=== PATIENT | male | born 1965 | race Two or more races ===

== ENCOUNTER 2020-06-06 15:18 | Outpatient (REF) | payer OTHER, SELFPAY | END 2020-06-06 15:19 | disposition home or self-care (01) | LOC: HO.LAB 15:18 | PROVIDERS: Visit Provider Internal Medicine | DX: Z20.828 Contact with and (suspected) exposure to other viral communicable diseases (principal) | CPT/HCPCS: U0003 ==

== ENCOUNTER 2020-06-19 10:29 | Outpatient (REF) | payer OTHER, SELFPAY | END 2020-06-19 10:30 | disposition home or self-care (01) | LOC: HO.LAB 10:29 | PROVIDERS: Visit Provider Internal Medicine | DX: Z20.828 Contact with and (suspected) exposure to other viral communicable diseases (principal) | CPT/HCPCS: C9803; U0003 ==

== ENCOUNTER 2020-08-19 13:15 | Emergency (ER) | payer OTHER, SELFPAY ==
[2020-08-19 13:22] VITALS: BP 173/99; PULSE 74; RESP 16; TEMP 36.4; O2SAT 100; BMI 33.2
[2020-08-19 19:43] VITALS: BP 181/88; PULSE 55; RESP 18; O2SAT 100
== END 2020-08-19 21:03 | disposition left against medical advice (07) ==
PROVIDERS: Emergency Provider Internal Medicine
DX: R06.02 Shortness of breath (principal)
CPT/HCPCS: 99281; 99283

== ENCOUNTER 2021-12-22 15:58 | Inpatient (IN) | payer OTHER, SELFPAY ==
--- NOTE | ~2021-12-22 | CT_ITS ---
EXAMINATION: CT ABDOMEN AND PELVIS WITHOUT CONTRAST CLINICAL INFORMATION: Abdominal pain COMPARISON: None TECHNIQUE: Multidetector volumetric imaging was performed from the superior aspect of the liver through the pubic symphysis. Sagittal and coronal reformatted images were obtained on the technologist's workstation. This CT examination was performed using dose optimization techniques as appropriate, variously including the following: *Automated exposure control *Adjustment of mA and/or kV according to patient size (this includes techniques or standardized protocols for targeted exams where dose is matched to indication/reason for exam; i.e. extremities or head) *Use of iterative reconstruction technique DLP: 745 mGy-cm FINDINGS: LUNG BASES: The visualized lung bases are unremarkable. LIVER, GALLBLADDER, AND BILIARY TREE: The liver is low in attenuation suggestive of fatty infiltration. The liver is otherwise normal. Present. The gallbladder is unremarkable with no evidence of radiopaque gallstones, gallbladder wall thickening, or obvious pericholecystic inflammatory changes. PANCREAS: Unremarkable. SPLEEN: Unremarkable. ADRENAL GLANDS: Unremarkable. KIDNEYS AND URETERS: The kidneys are normal in size, shape, and attenuation. No hydronephrosis, hydroureter, or calculi seen. No perinephric stranding. BLADDER: Unremarkable. GASTROINTESTINAL TRACT: There is diverticulosis of the colon. No evidence of diverticulitis is seen. The small and large bowel is otherwise unremarkable. The appendix is unremarkable. ABDOMINAL WALL: No significant hernia is appreciated. LYMPH NODES: There are small, small bowel mesentery lymph nodes. There is stranding of the fat in the small bowel mesentery. VASCULAR: Unremarkable. PELVIC VISCERA: Unremarkable. OSSEOUS STRUCTURES: Unremarkable. CT/CT abdomen pelvis wo con IMPRESSION: Fatty liver. Diverticulosis. No evidence of diverticulitis. Mild nonspecific stranding of the small bowel mesentery. Fleischner guidelines were followed.
--- NOTE | ~2021-12-22 | CT_ITS ---
EXAMINATION: CT CHEST WITHOUT CONTRAST CLINICAL INFORMATION: Elevated white blood cell count. Right upper lobe mass COMPARISON: Previous chest x-ray from earlier the same day TECHNIQUE: Multidetector volumetric CT imaging of the chest was done. Axial MIP volume rendering provided. Sagittal and coronal reformatted images were obtained. This CT examination was performed using dose optimization techniques as appropriate, variously including the following: *Automated exposure control *Adjustment of mA and/or kV according to patient size (this includes techniques or standardized protocols for targeted exams where dose is matched to indication/reason for exam; i.e. extremities or head) *Use of iterative reconstruction technique DLP: 745 mGy-cm FINDINGS: LUNGS: There is new dense consolidation in the apical and posterior right upper lobe with air bronchograms. Given elevated white blood cell count this probably represents a pneumonia. There is a 3 mm peripheral or subpleural right lower lobe nodule adjacent to the major fissure axial image 325 series 8. This probably represents a subpleural lymph node. There is a 4 mm left lower lobe nodule axial image 384 series 8. The lungs are otherwise clear. MEDIASTINUM: There are small mediastinal lymph nodes. No enlarged lymph nodes are seen. The heart size is normal. No pericardial effusion. Normal caliber thoracic aorta. PLEURA: There is no pleural effusion. No pleural mass or thickening. AXILLA: No lymphadenopathy. UPPER ABDOMEN: The liver is low in attenuation suggestive of fatty infiltration.. OSSEOUS STRUCTURES: There are degenerative changes of the spine. CT/CT chest wo con IMPRESSION: Dense consolidation in the right upper lobe with air bronchograms. Given elevated white blood cell count this probably represents pneumonia. Mass cannot be excluded and chest x-ray follow-up following treatment is recommended. Fleischner guidelines were followed.
--- NOTE | ~2021-12-22 | XR_ITS ---
EXAMINATION: XR CHEST CLINICAL INFORMATION: Cough COMPARISON: 03/31/2020 TECHNIQUE: 2 views of the chest were obtained. FINDINGS: Compared to the prior study, there is a new right apical density/lung mass present measuring 6.1 x 6.5 cm. Heart size normal. The remainder of the lungs are clear. No pleural effusions. Degenerative changes are seen. XR/XR chest 2V IMPRESSION: New right apical lung mass with increased density seen in the superior right mediastinum. Malignancy must be excluded. Recommend contrast-enhanced chest CT
[2021-12-22 17:44] VITALS: BP 137/67; PULSE 95; RESP 18; TEMP 37.2; O2SAT 98; BMI 35.2
[2021-12-22 18:15] LABS: COVID-19 Test Negative (Negative); IDNOW Serial# 55D5AD1C; Influenza A Negative (Negative); Influenza B2 Negative (Negative)
--- NOTE | 2021-12-22 20:29 | ED.GENADULT ---
HPI - General Adult General Chief complaint: General Medical Stated complaint: flu like Time Seen by Provider: 12/22/21 16:08 Source: patient Mode of arrival: ambulatory Limitations: no limitations History of Present Illness HPI narrative: Patient is a 56 year old male presenting to the emergency department today with fever, cough, diarrhea, and pain with deep breaths. Patient states that for the last few days, he has been having fevers, coughing, diarrhea, and pain of his torso when he takes a deep breath. Patient denies any dizziness, lightheadedness, abdominal pain, nausea, vomiting, chills, blurry vision, double vision, loss of vision, chest pain, difficulty breathing, shortness of breath, back pain, night sweats, pain with urination, increased urinary frequency, increased urinary urgency, blood in his urine or stool, syncope or a near syncopal episode, recent trauma or falls, bowel incontinence, bladder incontinence, bowel retention, bladder retention, or any other complaints at this time. Onset (ago): day(s) Relieving factors: none Exacerbating factors: none Associated symptoms: cough and fever/chills Treatments prior to arrival: none Related Data Allergies Allergy/AdvReac Type Severity Reaction Status Date / Time No Known Allergies Allergy Verified 12/22/21 17:44 Review of Systems Constitutional: Constitutional: Reports no additional constitutional complaints, Denies chills, Reports fever(s) and Denies night sweats Eyes: Eyes: Reports no additional eye complaints, Denies blurry vision, Denies change in vision, Denies diplopia, Denies eye discharge, Denies loss of vision and Denies eye pain ENT: Denies dizziness Cardiovascular: Cardiovascular: Reports no additional cardiovascular complaints, Denies chest pain, Denies lightheadedness, Denies Loss of Consciousness and Denies dyspnea Respiratory: Respiratory: Reports no additional respiratory complaints, Reports cough and Denies dyspnea Gastrointestinal: Gastrointestinal: Reports no additional gastrointestinal complaints, Denies abdominal pain, Denies melena, Denies hematochezia, Denies change in bowel habits, Denies change in stool character and Reports diarrhea Genitourinary: Genitourinary: Reports no additional male genitourinary complaints, Denies hematuria, Denies oliguria, Denies difficulty urinating, Denies dysuria, Denies urinary frequency, Denies urinary hesitancy, Denies urinary incontinence and Denies urinary urgency Musculoskeletal: Musculoskeletal: Reports no additional musculoskeletal complaints, Denies numbness and Denies tingling Neurologic: Denies dizziness, Denies loss of vision, Denies numbness and Denies tingling Psychiatric: Psychiatric: Reports no additional psychiatric complaints Endocrine: Endocrine: Reports no additional endocrine complaints Hematologic/Lymphatic: Hematologic/Lymphatic: Reports no additional hematologic/lymphatic complaints Allergic/Immunologic: Allergic/Immunologic: Reports no additional allergic/immunologic complaints [facility] Past Medical History Attestation statement: The following information was validated with the patient. Source: old records reviewed Medical History Hypertension Social History Social History Advance Directives: No Advance Directives Information Provided: No Physical Exam ED Vital Signs: Vital Signs - 24 hr 12/22/21 17:44 12/22/21 22:29 Temperature 98.9 F Pulse Rate 95 55 Respiratory Rate 18 17 Blood Pressure 137/67 137/74 Pulse Oximetry 98 97 BMI result Body Mass Index 35.2 Const General: cooperative, no acute distress, alert and awake Nutritional Appearance: well nourished Orientation/consciousness: patient oriented x3 Limitations: no limitations HENMT Head: Yes normal to inspection and Yes atraumatic Ears: hearing grossly normal bilaterally and external ears normal General nose exam: Normal external nose present, no nasal discharge noted and no epistaxis Face and sinus: Yes normal facial exam, No abrasion and No laceration Mouth: Normal oral and palatal mucosa present, no drooling and no muffled voice Eyes General: appearance normal, both eyes and all related structures Periorbital: periorbital findings normal Eyelids: Yes eyelids normal Conjunctivae: conjunctivae normal Pupils: Equal, round and reactive pupils present EOM: EOMs intact bilaterally Neck Neck: Yes normal visual inspection, Yes full ROM and Yes no lymphadenopathy Chest Chest palpation & inspection: normal inspection of the chest Resp Effort & Inspection: normal respiratory effort and able to speak in complete sentences Auscultation: diminished lung sounds on the right in the upper lung mcrae Cardio Rate: regular rate Rhythm: regular rhythm GI Inspection: Yes normal to inspection Palpation (GI): Soft to palpation, not firm, nontender and no guarding Neuro General: patient oriented x3 and moves all extremities Cranial nerves: Yes Equal, round and reactive pupils present Cognition (Neuro): normal cognition Motor exam (neuro): 5/5 motor strength present throughout Sensory Exam: Normal double simultaneous stimulation for sensation Coordination: [id number] test normal Extrem General: Yes normal to inspection, Yes full ROM and Yes capillary refill normal Psych Appearance: grossly normal Mental Status: mental status grossly normal Affect: normal affect Attitude: cooperative Thought process: Normal thought process present Thought content: Normal thought content present Insight: Good insight present (Psych) Medical Decision Making MDM Narrative Medical decision making narrative: Patient is a 56 year old male presenting to the emergency department today with a cough, fever, diarrhea, and torso pain when inhaling deeply. Patient's physical exam was unremarkable. Patient's blood work showed a markedly elevated white blood cell count of 31.5. Due to high the WBC count was, I had it repeated and it resulted again at 29.7. Patient had an elevated ESR at 36 and elevated CRP at 30.94. Patient's creatinine was minimally elevated at 1.59. Patient was negative for COVID-19 and influenza. Patient's chest x-ray showed a new right apical lung mass with increased density seen in the superior right mediastinum. Patient's chest CT showed a dense consolidation in the right upper lobe with air bronchograms that likely signifies pneumonis but malignancy cannot be excluded. Patient's CT abdoment pelvis was unremarkable. I explained my physical exam findings as well as all test results to the patient. I answered all questions asked by the patient. Patient received IV Zosyn. I did not suspect sepsis in this patient given his clinical condition during my treatment. I spoke to Dr. Parker, the hospitalist production staff worker, who agreed to admission. The patient verbalized agreement and understanding with this treatment plan and admission. Differential Diagnosis Differential Diagnosis: pneumonia, lung mass Medical Records Medical records reviewed: Yes I reviewed the patient's medical records. Lab Data Lab results reviewed: Yes I reviewed the patient's lab results. Result diagrams: 12/22/21 21:20 12/22/21 20:39 Labs: Lab Results 12/22/21 12/22/21 12/22/21 Range/Units 17:50 17:50 20:39 WBC 31.5 H* (4.8-10.8) X10*3/uL RBC 5.63 (4.60-5.80) X10*6/uL Hgb 15.4 (14.0-18.0) g/dl Hct 46.1 (42.0-52.0) % MCV 81.9 (80.0-98.0) fL MCH 27.4 (27.0-33.0) pg MCHC 33.4 (31.0-36.0) g/dl RDW 13.7 (11.0-16.0) % Plt Count 221 (160-400) X10*3/uL MPV 10.2 (9.4-12.4) fL Immature Gran % (Auto) 0.7 H (0.0-0.4) % Neut % (Auto) 82.3 H (45-73) % Lymph % (Auto) 8.3 L (20-40) % [place] % (Auto) 8.5 (2-11) % Eos % (Auto) 0.0 (0-4) % Baso % (Auto) 0.2 (0-2) % Lymph # (Auto) 2.6 (1.2-4.9) X10*3/uL [place] # (Auto) 2.7 H (0.1-1.2) X10*3/uL Eos # (Auto) 0.0 (0.0-0.4) X10*3/uL Baso # (Auto) 0.1 (0.0-0.2) X10*3/uL Abs Immat Gran (auto) 0.22 H (0.00-0.03) X10*3/uL Absolute Neuts (auto) 25.9 H (2.0-8.3) x10*3/uL Absolute Nucleated RBC 0.000 (0.0-0.012) X10*3/uL Nucleated RBC % (auto) 0.0 (0.0-0.2) /100WBC Smear Tech's Comments VERIFIED ESR (0-15) MM/HR Sodium (135-145) mmol/L Potassium (3.3-5.1) mmol/L Chloride (96-108) mmol/L Carbon Dioxide (22-29) mmol/L Anion Gap (12-20) BUN (9-16) mg/dL Creatinine (0.5-1.4) mg/dL Estim Creat Clear Calc Estimated GFR Random Glucose (60-115) mg/dL Lactic Acid (0.5-2.0) mmol/L Calcium (8.4-10.2) mg/dL Total Bilirubin (0.0-1.0) mg/dL AST (5-37) U/L ALT (0-40) U/L Alkaline Phosphatase (39-117) U/L C-Reactive Protein (< or = 0.50) mg/dL Total Protein (6.5-8.0) g/dL Albumin (3.5-5.0) g/dL COVID-19 (BIRGIT) Negative (Negative) COVID-19 Clin Com See Note Influenza Type A (JULIA) Negative (Negative) Influenza Type B (JULIA) Negative (Negative) Influenza A & B Note See Note 12/22/21 12/22/21 12/22/21 Range/Units 20:39 21:20 21:20 WBC 29.7 H (4.8-10.8) X10*3/uL RBC 5.42 (4.60-5.80) X10*6/uL Hgb 14.7 (14.0-18.0) g/dl Hct 44.1 (42.0-52.0) % MCV 81.4 (80.0-98.0) fL MCH 27.1 (27.0-33.0) pg MCHC 33.3 (31.0-36.0) g/dl RDW 13.7 (11.0-16.0) % Plt Count 217 (160-400) X10*3/uL MPV 10.2 (9.4-12.4) fL Immature Gran % (Auto) 0.9 H (0.0-0.4) % Neut % (Auto) 83.5 H (45-73) % Lymph % (Auto) 7.0 L (20-40) % [place] % (Auto) 8.4 (2-11) % Eos % (Auto) 0.0 (0-4) % Baso % (Auto) 0.2 (0-2) % Lymph # (Auto) 2.1 (1.2-4.9) X10*3/uL [place] # (Auto) 2.5 H (0.1-1.2) X10*3/uL Eos # (Auto) 0.0 (0.0-0.4) X10*3/uL Baso # (Auto) 0.1 (0.0-0.2) X10*3/uL Abs Immat Gran (auto) 0.26 H (0.00-0.03) X10*3/uL Absolute Neuts (auto) 24.8 H (2.0-8.3) x10*3/uL Absolute Nucleated RBC 0.000 (0.0-0.012) X10*3/uL Nucleated RBC % (auto) 0.0 (0.0-0.2) /100WBC Smear Tech's Comments ESR 36 H (0-15) MM/HR Sodium 140 (135-145) mmol/L Potassium 3.5 (3.3-5.1) mmol/L Chloride 101 (96-108) mmol/L Carbon Dioxide 27 (22-29) mmol/L Anion Gap 16 (12-20) BUN 15 (9-16) mg/dL Creatinine 1.59 H (0.5-1.4) mg/dL Estim Creat Clear Calc 68.4 Estimated GFR 46 Random Glucose 131 H (60-115) mg/dL Lactic Acid (0.5-2.0) mmol/L Calcium 9.0 (8.4-10.2) mg/dL Total Bilirubin 1.5 H (0.0-1.0) mg/dL AST 22 (5-37) U/L ALT 35 (0-40) U/L Alkaline Phosphatase 110 (39-117) U/L C-Reactive Protein 30.94 H (< or = 0.50) mg/dL Total Protein 8.0 (6.5-8.0) g/dL Albumin 4.1 (3.5-5.0) g/dL COVID-19 (BIRGIT) (Negative) COVID-19 Clin Com Influenza Type A (JULIA) (Negative) Influenza Type B (JULIA) (Negative) Influenza A & B Note 12/22/21 Range/Units 21:21 WBC (4.8-10.8) X10*3/uL RBC (4.60-5.80) X10*6/uL Hgb (14.0-18.0) g/dl Hct (42.0-52.0) % MCV (80.0-98.0) fL MCH (27.0-33.0) pg MCHC (31.0-36.0) g/dl RDW (11.0-16.0) % Plt Count (160-400) X10*3/uL MPV (9.4-12.4) fL Immature Gran % (Auto) (0.0-0.4) % Neut % (Auto) (45-73) % Lymph % (Auto) (20-40) % [place] % (Auto) (2-11) % Eos % (Auto) (0-4) % Baso % (Auto) (0-2) % Lymph # (Auto) (1.2-4.9) X10*3/uL [place] # (Auto) (0.1-1.2) X10*3/uL Eos # (Auto) (0.0-0.4) X10*3/uL Baso # (Auto) (0.0-0.2) X10*3/uL Abs Immat Gran (auto) (0.00-0.03) X10*3/uL Absolute Neuts (auto) (2.0-8.3) x10*3/uL Absolute Nucleated RBC (0.0-0.012) X10*3/uL Nucleated RBC % (auto) (0.0-0.2) /100WBC Smear Tech's Comments ESR (0-15) MM/HR Sodium (135-145) mmol/L Potassium (3.3-5.1) mmol/L Chloride (96-108) mmol/L Carbon Dioxide (22-29) mmol/L Anion Gap (12-20) BUN (9-16) mg/dL Creatinine (0.5-1.4) mg/dL Estim Creat Clear Calc Estimated GFR Random Glucose (60-115) mg/dL Lactic Acid 1.6 (0.5-2.0) mmol/L Calcium (8.4-10.2) mg/dL Total Bilirubin (0.0-1.0) mg/dL AST (5-37) U/L ALT (0-40) U/L Alkaline Phosphatase (39-117) U/L C-Reactive Protein (< or = 0.50) mg/dL Total Protein (6.5-8.0) g/dL Albumin (3.5-5.0) g/dL COVID-19 (BIRGIT) (Negative) COVID-19 Clin Com Influenza Type A (JULIA) (Negative) Influenza Type B (JULIA) (Negative) Influenza A & B Note Imaging Data Chest x-ray: Attestation: I personally reviewed and interpreted this imaging study as follows: My impression: Large mass in the right apical area Radiologist's impression: EXAMINATION: XR CHEST CLINICAL INFORMATION: Cough COMPARISON: 03/31/2020 TECHNIQUE: 2 views of the chest were obtained. FINDINGS: Compared to the prior study, there is a new right apical density/lung mass present measuring 6.1 x 6.5 cm. Heart size normal. The remainder of the lungs are clear. No pleural effusions. Degenerative changes are seen. XR/XR chest 2V IMPRESSION: New right apical lung mass with increased density seen in the superior right mediastinum. Malignancy must be excluded. Recommend contrast-enhanced chest CT Dictated By: Phuc Graves MD Signed By: Electronically signed by Phuc Graves MD 12/22/212120 CT scan - abdomen: Attestation: I personally reviewed and interpreted this imaging study as follows: Radiologist's impression: EXAMINATION: CT ABDOMEN AND PELVIS WITHOUT CONTRAST? CLINICAL INFORMATION: Abdominal pain? COMPARISON: None? TECHNIQUE: Multidetector volumetric imaging was performed from the superior aspect of the liver through the pubic symphysis. Sagittal and coronal reformatted images were obtained on the technologist's workstation.? This CT examination was performed using dose optimization techniques as appropriate, variously including the following: *Automated exposure control *Adjustment of mA and/or kV according to patient size (this includes techniques or standardized protocols for targeted exams where dose is matched to indication/reason for exam; i.e. extremities or head) *Use of iterative reconstruction technique DLP: 745 mGy-cm FINDINGS: LUNG BASES: The visualized lung bases are unremarkable.? LIVER, GALLBLADDER, AND BILIARY TREE: The liver is low in attenuation suggestive of fatty infiltration. The liver is otherwise normal. Present. The gallbladder is unremarkable with no evidence of radiopaque gallstones, gallbladder wall thickening, or obvious pericholecystic inflammatory changes.? PANCREAS: Unremarkable.? SPLEEN: Unremarkable.? ADRENAL GLANDS: Unremarkable.? KIDNEYS AND URETERS: The kidneys are normal in size, shape, and attenuation. No hydronephrosis, hydroureter, or calculi seen. No perinephric stranding. ? BLADDER: Unremarkable.? GASTROINTESTINAL TRACT: There is diverticulosis of the colon. No evidence of diverticulitis is seen. The small and large bowel is otherwise unremarkable. The appendix is unremarkable.? ABDOMINAL WALL: No significant hernia is appreciated.? LYMPH NODES: There are small, small bowel mesentery lymph nodes. There is stranding of the fat in the small bowel mesentery. VASCULAR: Unremarkable. PELVIC VISCERA: Unremarkable.? OSSEOUS STRUCTURES: Unremarkable.? CT/CT abdomen pelvis wo con IMPRESSION: Fatty liver. Diverticulosis. No evidence of diverticulitis. Mild nonspecific stranding of the small bowel mesentery. ? Fleischner guidelines were followed. Dictated By: Beatriz Samaniego MD Signed By: Electronically signed by Beatriz Samaniego MD 12/22/[address] scan - chest: Attestation: I personally reviewed and interpreted this imaging study as follows: My impression: Large mass in the upper right lung Radiologist's impression: EXAMINATION: CT CHEST WITHOUT CONTRAST CLINICAL INFORMATION: Elevated white blood cell count. Right upper lobe mass? COMPARISON: Previous chest x-ray from earlier the same day TECHNIQUE: Multidetector volumetric CT imaging of the chest was done. Axial MIP volume rendering provided. Sagittal and coronal reformatted images were obtained.? This CT examination was performed using dose optimization techniques as appropriate, variously including the following: *Automated exposure control *Adjustment of mA and/or kV according to patient size (this includes techniques or standardized protocols for targeted exams where dose is matched to indication/reason for exam; i.e. extremities or head) *Use of iterative reconstruction technique DLP: 745 mGy-cm FINDINGS: LUNGS: There is new dense consolidation in the apical and posterior right upper lobe with air bronchograms. Given elevated white blood cell count this probably represents a pneumonia. There is a 3 mm peripheral or subpleural right lower lobe nodule adjacent to the major fissure axial image 325 series 8. This probably represents a subpleural lymph node. There is a 4 mm left lower lobe nodule axial image 384 series 8. The lungs are otherwise clear. MEDIASTINUM: There are small mediastinal lymph nodes. No enlarged lymph nodes are seen. The heart size is normal. No pericardial effusion. Normal caliber thoracic aorta. PLEURA: There is no pleural effusion. No pleural mass or thickening.? AXILLA: No lymphadenopathy.? UPPER ABDOMEN: The liver is low in attenuation suggestive of fatty infiltration..? OSSEOUS STRUCTURES: There are degenerative changes of the spine.? CT/CT chest wo con IMPRESSION: Dense consolidation in the right upper lobe with air bronchograms. Given elevated white blood cell count this probably represents pneumonia. Mass cannot be excluded and chest x-ray follow-up following treatment is recommended.? ? Fleischner guidelines were followed. Dictated By: Beatriz Samaniego MD Signed By: Electronically signed by Beatriz Samaniego MD 12/22/21 3661 Critical Care Time Critical Care Time Critical Care Time: Yes Total Critical Care Time: 30 Attestation: I spent 30 minutes of Critical Care Time with this patient. This does not include time spent on separately reported billable procedures. Discharge Plan Discharge Clinical Impression: PNA (pneumonia) Patient Disposition: Admitted As Inpatient
[2021-12-22 20:44] LABS: Basophils Absolute Auto 0.1 X10*3/uL (0.0-0.2); Basophils Percent Auto 0.2 % (0-2); Hematocrit 46.1 % (42.0-52.0); Hemoglobin 15.4 g/dl (14.0-18.0); Imm Gran Abs Auto 0.22 X10*3/uL (0.00-0.03); Imm Gran Pct Auto 0.7 % (0.0-0.4); Lymphocytes Absolute Auto 2.6 X10*3/uL (1.2-4.9); Lymphocytes Percent Auto 8.3 % (20-40); MANUAL DIFF FLAG SCAN; Mean Corpuscular HGB Conc 33.4 g/dl (31.0-36.0); Mean Corpuscular Hemoglobin 27.4 pg (27.0-33.0); Mean Corpuscular Volume 81.9 fL (80.0-98.0); Mean Platelet Volume 10.2 fL (9.4-12.4); Monocytes Absolute Auto 2.7 X10*3/uL (0.1-1.2); Monocytes Percent Auto 8.5 % (2-11); Neutrophils Absolute Auto 25.9 x10*3/uL (2.0-8.3); Neutrophils Percent Auto 82.3 % (45-73); Platelet Count 221 X10*3/uL (160-400); Red Blood Count 5.63 X10*6/uL (4.60-5.80); Red Cell Distribution Width 13.7 % (11.0-16.0); SCAN SMEAR FLAG 1
[2021-12-22 20:55] LABS: White Blood Count 31.5 X10*3/uL (4.8-10.8)
[2021-12-22 21:06] LABS: SLIDE REVIEW VERIFIED
[2021-12-22 21:08] LABS: Alanine Aminotransferase 35 U/L (0-40); Albumin Level 4.1 g/dL (3.5-5.0); Alkaline Phosphatase 110 U/L (39-117); Anion Gap 16 (12-20); Aspartate Amino Transferase 22 U/L (5-37); Bilirubin Total 1.5 mg/dL (0.0-1.0); Blood Urea Nitrogen 15 mg/dL (9-16); Carbon Dioxide 27 mmol/L (22-29); Chloride 101 mmol/L (96-108); Creatinine Clr Calc Pharmacy 68.4; Estimated Glomerular Filt Rate 46; Glucose Random 131 mg/dL (60-115); Potassium 3.5 mmol/L (3.3-5.1); Sodium 140 mmol/L (135-145)
[2021-12-22 21:28] LABS: Basophils Absolute Auto 0.1 X10*3/uL (0.0-0.2); Basophils Percent Auto 0.2 % (0-2); Hematocrit 44.1 % (42.0-52.0); Hemoglobin 14.7 g/dl (14.0-18.0); Imm Gran Abs Auto 0.26 X10*3/uL (0.00-0.03); Imm Gran Pct Auto 0.9 % (0.0-0.4); Lymphocytes Absolute Auto 2.1 X10*3/uL (1.2-4.9); MANUAL DIFF FLAG SCAN; Mean Corpuscular HGB Conc 33.3 g/dl (31.0-36.0); Mean Corpuscular Hemoglobin 27.1 pg (27.0-33.0); Mean Corpuscular Volume 81.4 fL (80.0-98.0); Mean Platelet Volume 10.2 fL (9.4-12.4); Monocytes Absolute Auto 2.5 X10*3/uL (0.1-1.2); Monocytes Percent Auto 8.4 % (2-11); Neutrophils Absolute Auto 24.8 x10*3/uL (2.0-8.3); Neutrophils Percent Auto 83.5 % (45-73); Platelet Count 217 X10*3/uL (160-400); Red Blood Count 5.42 X10*6/uL (4.60-5.80); Red Cell Distribution Width 13.7 % (11.0-16.0); SCAN SMEAR FLAG 1; White Blood Count 29.7 X10*3/uL (4.8-10.8)
[2021-12-22 21:40] LABS: Lactic Acid 1.6 mmol/L (0.5-2.0)
[2021-12-22 22:29] VITALS: BP 137/74; PULSE 55; RESP 17; O2SAT 97
[2021-12-22] MEDS: 0.9 % Sodium Chloride 1,000 ML 999 ML IVCONT (22:31)
[2021-12-22] MEDS: Piperacillin Sodium/Tazobactam 4.5 GM in 0.9 % Sodium Chloride 100 ML IV (22:45)
[2021-12-22 22:52] LABS: C Reactive Protein 30.94 mg/dL (< or = 0.50)
--- NOTE | 2021-12-22 23:12 | PM.IMHP ---
History of Present Illness Date of Service: 12/22/21 Chief Complaint: Fever 56-year-old male with a past medical history of tobacco dependence, alcohol abuse; presented to the hospital today with a chief complaint of not feeling well; patient reports that for the past couple days she has been having not feeling well, having dry cough; also had shortness of breath which worsens on exertion. Mentioned that he drinks about 6 beers every day and last Tuesday he drinks beers as well as used cocaine and followed by he slept over; and from Tuesday he feeling like having fevers and not well; hence decided to come to the ER for further evaluation. Denies any weight loss or change in appetite. Denies any numbness tingling or focal weakness. Denies any nausea vomiting. Denies any urinary symptoms. Patient reports that he has intermittent headaches and also had few episodes of loose stools. [facility] Medical History (Updated 12/22/21 @ 23:13 by Shahid Parker MD) Hypertension Social History Advance Directives: No Advance Directives Information Provided: No Meds Allergies Allergy/AdvReac Type Severity Reaction Status Date / Time No Known Allergies Allergy Verified 12/22/21 17:44 Active Medications: Current Medications Acetaminophen (Acetaminophen 325 Mg Tablet) 650 mg PO Q6H PRN PRN Reason: Pain, Mild (Pain Scale 1-3) Benzonatate (Benzonatate 100 Mg Capsule) 100 mg PO TID PRN PRN Reason: Cough Enoxaparin Sodium (Enoxaparin Sodium 40 Mg/0.4 Ml Syringe) 40 mg SUBCUT Q24H SELMA Vancomycin HCl 1,000 mg/ (Sodium Chloride) 270 mls @ 270 mls/hr IV Q12H SELMA Piperacillin Sod/Tazobactam (Sod 3.375 gm/ Sodium Chloride) 50 mls @ 100 mls/hr IV Q6H SELMA Dextrose/Sodium Chloride (D5ns) 1,000 mls @ 100 mls/hr IVCONT .Q10H SELMA Melatonin (Melatonin 3 Mg Tablet) 6 mg PO BEDTIME PRN PRN Reason: Insomnia Pharmacy Consult (Consult Rx Perform Med Rec) 1 each MISCELLANE ONCE PRN PRN Reason: Consult order Pharmacy Consult (Consult Rx Vancomycin Dosing) 1 each MISCELLANE DAILY PRN PRN Reason: Consult order Senna (Sennosides 8.6 Mg Tablet) 17.2 mg PO BEDTIME PRN PRN Reason: Constipation Sodium Chloride (0.9 % Sodium Chloride Flush 3 Ml Syringe) 3 ml IVFLUSH QSHIFT SELMA Physical Exam Vital Signs and Narrative: Vital Signs: Last Vital Signs Temp 98.9 F 12/22/21 17:44 Pulse 55 12/22/21 22:29 Resp 17 12/22/21 22:29 BP 137/74 12/22/21 22:29 Pulse Ox 97 12/22/21 22:29 BMI result Body Mass Index 35.2 Gen: Appears be in no acute distress HEENT: NCAT, Moist mucosa. Pulmonary: Course in the right upper lobe; has rhonchi. CVS: Normal S1-S2 Abdomen: BS+, Soft, Nontender Extremities: Warm well perfused Neuro: Alert and awake. Results Labs CBC and Chem 7: 12/22/21 21:20 12/22/21 20:39 Labs: Laboratory Results - last 24 hr 12/22/21 12/22/21 12/22/21 17:50 17:50 20:39 MCV 81.9 MCH 27.4 MCHC 33.4 RDW 13.7 Plt Count 221 MPV 10.2 Immature Gran % (Auto) 0.7 H Neut % (Auto) 82.3 H Lymph % (Auto) 8.3 L [place] % (Auto) 8.5 Eos % (Auto) 0.0 Baso % (Auto) 0.2 Lymph # (Auto) 2.6 [place] # (Auto) 2.7 H Eos # (Auto) 0.0 Baso # (Auto) 0.1 Abs Immat Gran (auto) 0.22 H Absolute Neuts (auto) 25.9 H Absolute Nucleated RBC 0.000 Nucleated RBC % (auto) 0.0 Smear Tech's Comments VERIFIED Anion Gap Estim Creat Clear Calc Estimated GFR Random Glucose Lactic Acid Calcium Total Bilirubin AST ALT Alkaline Phosphatase C-Reactive Protein Total Protein Albumin COVID-19 (BIRGIT) Negative COVID-19 Clin Com See Note Influenza Type A (JULIA) Negative Influenza Type B (JULIA) Negative Influenza A & B Note See Note 12/22/21 12/22/21 12/22/21 20:39 21:20 21:21 MCV 81.4 MCH 27.1 MCHC 33.3 RDW 13.7 Plt Count 217 MPV 10.2 Immature Gran % (Auto) 0.9 H Neut % (Auto) 83.5 H Lymph % (Auto) 7.0 L [place] % (Auto) 8.4 Eos % (Auto) 0.0 Baso % (Auto) 0.2 Lymph # (Auto) 2.1 [place] # (Auto) 2.5 H Eos # (Auto) 0.0 Baso # (Auto) 0.1 Abs Immat Gran (auto) 0.26 H Absolute Neuts (auto) 24.8 H Absolute Nucleated RBC 0.000 Nucleated RBC % (auto) 0.0 Smear Tech's Comments Anion Gap 16 Estim Creat Clear Calc 68.4 Estimated GFR 46 Random Glucose 131 H Lactic Acid 1.6 Calcium 9.0 Total Bilirubin 1.5 H AST 22 ALT 35 Alkaline Phosphatase 110 C-Reactive Protein 30.94 H Total Protein 8.0 Albumin 4.1 COVID-19 (BIRGIT) COVID-19 Clin Com Influenza Type A (JULIA) Influenza Type B (JULIA) Influenza A & B Note Imaging Radiologist's Impressions: Impressions Chest X-Ray 12/22/21 20:32 IMPRESSION: New right apical lung mass with increased density seen in the superior right mediastinum. Malignancy must be excluded. Recommend contrast-enhanced chest CT Abdomen/Pelvis CT 12/22/21 21:54 IMPRESSION: Fatty liver. Diverticulosis. No evidence of diverticulitis. Mild nonspecific stranding of the small bowel mesentery. Fleischner guidelines were followed. Chest CT 12/22/21 21:54 IMPRESSION: Dense consolidation in the right upper lobe with air bronchograms. Given elevated white blood cell count this probably represents pneumonia. Mass cannot be excluded and chest x-ray follow-up following treatment is recommended. Fleischner guidelines were followed. Assessment and Plan (1) PNA (pneumonia): Status: Acute Plan 56-year-old male with a past medical history of tobacco dependence, alcohol abuse; presented to the hospital today with a chief complaint of not feeling well/subjective fever/shortness of breath. Noted to have pneumonia. Admitted for further management. Pneumonia: Concern for aspiration Will give the patient on IV vancomycin and Zosyn. CT chest also mentioned mass cannot be entirely excluded. Will consult pulmonology for further recommendations [email or web address] [email or web address]. Cough suppressants Patient has severe leukocytosis-will consult ID for further recommendations. ? leukemoid reaction REED: Likely prerenal. Gentle IV fluids. Alcohol abuse: Will monitor on CIWA protocol. DVT prophylaxis: Lovenox Code status: Full code Quality Stroke Does the patient have a stroke diagnosis?: No VTE Prior VTE?: No VTE Risk Level:: Medical - moderate - high VTE Device Contraindication: Treatment Not Indicated VTE Drug Contraindication: N/A - Med Ordered
[2021-12-22 23:27] LABS: Erythrocyte Sedimentation Rate 36 MM/HR (0-15)
[2021-12-23] VITALS (9 sets, daily range): BP systolic 100–140; BP diastolic 57–84; PULSE 68–87; RESP 18–25; TEMP 36.3–37.6; O2SAT 95–98
[2021-12-23 01:32] LABS: Appearance Urine CLEAR; Color Urine YELLOW; Glucose Urine UA NEG (NEG); Leukocyte Esterase Urine NEG (NEG); Nitrite Urine NEG (NEG); Specific Gravity - Urine <= 1.005 (1.005-1.025); UACC Culture Trigger NO; Urine Blood 1+ (NEG); Urine Ketones NEG (NEG); Urine Protein TRACE MG/DL (NEG-TRACE)
[2021-12-23 01:47] LABS: Squamous Epithelial Cell Urine 1+ /LPF; WBC Urine 0-2 /HPF (0-4)
[2021-12-23] MEDS: Dextrose 5 % and 0.9 % NaCl 1,000 ML 100 ML IVCONT ×2 (01:54→09:57)
--- NOTE | 2021-12-23 02:30 | PC.NURSE ---
pharmacy contacted regarding vancomycin order, order confirmed, medicated per provider order. D5NS running @ 100ml/hr/.
[2021-12-23] MEDS: Acetaminophen 325 MG TABLET 650 MG PO (02:35)
--- NOTE | 2021-12-23 02:36 | PC.NURSE ---
pt c/o 5 headache, medicated w PRN tylenol.
[2021-12-23 04:44] LABS: Basophils Absolute Auto 0.1 X10*3/uL (0.0-0.2); Basophils Percent Auto 0.3 % (0-2); Eosinophils Percent Auto 0.1 % (0-4); Hematocrit 39.7 % (42.0-52.0); Hemoglobin 13.3 g/dl (14.0-18.0); Imm Gran Abs Auto 0.14 X10*3/uL (0.00-0.03); Imm Gran Pct Auto 0.6 % (0.0-0.4); Lymphocytes Absolute Auto 2.6 X10*3/uL (1.2-4.9); Lymphocytes Percent Auto 10.7 % (20-40); MANUAL DIFF FLAG SCAN; Mean Corpuscular HGB Conc 33.5 g/dl (31.0-36.0); Mean Corpuscular Hemoglobin 27.6 pg (27.0-33.0); Mean Corpuscular Volume 82.4 fL (80.0-98.0); Mean Platelet Volume 10.4 fL (9.4-12.4); Monocytes Percent Auto 8.2 % (2-11); Neutrophils Absolute Auto 19.4 x10*3/uL (2.0-8.3); Neutrophils Percent Auto 80.1 % (45-73); Platelet Count 191 X10*3/uL (160-400); Red Blood Count 4.82 X10*6/uL (4.60-5.80); Red Cell Distribution Width 13.5 % (11.0-16.0); SCAN SMEAR FLAG 1; White Blood Count 24.3 X10*3/uL (4.8-10.8)
[2021-12-23] MEDS: Piperacillin Sodium/Tazobactam 3.375 GM in 0.9 % Sodium Chloride 50 ML IV ×4 (04:48→21:50)
[2021-12-23 05:12] LABS: Anion Gap 10 (12-20); Blood Urea Nitrogen 12 mg/dL (9-16); Calcium 8.2 mg/dL (8.4-10.2); Carbon Dioxide 28 mmol/L (22-29); Chloride 103 mmol/L (96-108); Creatinine Clr Calc Pharmacy 97.1; Estimated Glomerular Filt Rate > 60; Glucose Random 108 mg/dL (60-115); Potassium 3.2 mmol/L (3.3-5.1); Sodium 138 mmol/L (135-145)
--- NOTE | 2021-12-23 08:05 | PHA.MEDREC ---
Pharmacy Consult ? Medication Reconciliation Pharmacy has completed the medication reconciliation. Patient report no medication at home. Hayley Roth, AshleighD
--- NOTE | 2021-12-23 09:33 | HO.PM.IMPN ---
Subjective Subjective Date of Service: 12/23/21 Interval History: pneumonia ,reed Review of Systems Patient says that shortness of breath is somewhat better than yesterday, has cough, Denies any chest pain No fever or chills Physical Exam Vital Signs: Vital Signs: Last Vital Signs Temp 97.3 F 12/23/21 04:00 Pulse 68 12/23/21 07:31 Resp 19 12/23/21 07:31 BP 111/63 12/23/21 07:31 Pulse Ox 95 12/23/21 07:31 BMI result Body Mass Index 35.2 Appearance: Alert.? Oriented X3.? not in distress.? cvs: rrr, [id number] , no murmur res: air entry diminshed at bases ,few rhonchii abd: no rebound or guarding ,nt, bs present. ext pulses present , no cyanosis . neuro: axo3 , nonfocal. Objective Data Active Medications Acetaminophen (Acetaminophen 325 Mg Tablet) 650 mg PO Q6H PRN PRN Reason: Pain, Mild (Pain Scale 1-3) Last Admin: 12/23/21 02:35 Dose: 650 mg Documented by: LINDSEY Benzonatate (Benzonatate 100 Mg Capsule) 100 mg PO TID PRN PRN Reason: Cough Enoxaparin Sodium (Enoxaparin Sodium 40 Mg/0.4 Ml Syringe) 40 mg SUBCUT Q24H SELMA Vancomycin HCl 1,000 mg/ (Sodium Chloride) 270 mls @ 270 mls/hr IV Q12H SELMA Piperacillin Sod/Tazobactam (Sod 3.375 gm/ Sodium Chloride) 50 mls @ 100 mls/hr IV Q6H [facility] Last Infusion: 12/23/21 05:19 Dose: 100 mls/hr Documented by: JOSLYN-CANF Dextrose/Sodium Chloride (D5ns) 1,000 mls @ 100 mls/hr IVCONT .Q10H [facility] Last Admin: 12/23/21 01:54 Dose: 100 mls/hr Documented by: LINDSEY Melatonin (Melatonin 3 Mg Tablet) 6 mg PO BEDTIME PRN PRN Reason: Insomnia Pharmacy Consult (Consult Rx Perform Med Rec) 1 each MISCELLANE ONCE PRN PRN Reason: Consult order Pharmacy Consult (Consult Rx Vancomycin Dosing) 1 each MISCELLANE DAILY PRN PRN Reason: Consult order Senna (Sennosides 8.6 Mg Tablet) 17.2 mg PO BEDTIME PRN PRN Reason: Constipation Sodium Chloride (0.9 % Sodium Chloride Flush 3 Ml Syringe) 3 ml IVFLUSH QSHIFT [facility] Last Admin: 12/23/21 01:32 Dose: Not Given Documented by: LINDSEY Non-Admin Reason: IV Running Labs CBC & Chem 7: 12/23/21 04:27 12/23/21 04:27 Labs: Laboratory Results - last 24 hr 12/22/21 12/22/21 12/22/21 17:50 17:50 20:39 MCV 81.9 MCH 27.4 MCHC 33.4 RDW 13.7 Plt Count 221 MPV 10.2 Immature Gran % (Auto) 0.7 H Neut % (Auto) 82.3 H Lymph % (Auto) 8.3 L [place] % (Auto) 8.5 Eos % (Auto) 0.0 Baso % (Auto) 0.2 Lymph # (Auto) 2.6 [place] # (Auto) 2.7 H Eos # (Auto) 0.0 Baso # (Auto) 0.1 Abs Immat Gran (auto) 0.22 H Absolute Neuts (auto) 25.9 H Absolute Nucleated RBC 0.000 Nucleated RBC % (auto) 0.0 Smear Tech's Comments VERIFIED ESR Anion Gap Estim Creat Clear Calc Estimated GFR Random Glucose Lactic Acid Calcium Total Bilirubin AST ALT Alkaline Phosphatase C-Reactive Protein Total Protein Albumin Urine Color Urine Appearance Urine pH Ur Specific [place] Urine Protein Urine Glucose (UA) Urine Ketones Urine Blood Urine Nitrite Ur Leukocyte Esterase Urine RBC Urine WBC Ur Squamous Epith Cells Urine Bacteria COVID-19 (BIRGIT) Negative COVID-19 Clin Com See Note Influenza Type A (JULIA) Negative Influenza Type B (JULIA) Negative Influenza A & B Note See Note 12/22/21 12/22/21 12/22/21 20:39 21:20 21:20 MCV 81.4 MCH 27.1 MCHC 33.3 RDW 13.7 Plt Count 217 MPV 10.2 Immature Gran % (Auto) 0.9 H Neut % (Auto) 83.5 H Lymph % (Auto) 7.0 L [place] % (Auto) 8.4 Eos % (Auto) 0.0 Baso % (Auto) 0.2 Lymph # (Auto) 2.1 [place] # (Auto) 2.5 H Eos # (Auto) 0.0 Baso # (Auto) 0.1 Abs Immat Gran (auto) 0.26 H Absolute Neuts (auto) 24.8 H Absolute Nucleated RBC 0.000 Nucleated RBC % (auto) 0.0 Smear Tech's Comments ESR 36 H Anion Gap 16 Estim Creat Clear Calc 68.4 Estimated GFR 46 Random Glucose 131 H Lactic Acid Calcium 9.0 Total Bilirubin 1.5 H AST 22 ALT 35 Alkaline Phosphatase 110 C-Reactive Protein 30.94 H Total Protein 8.0 Albumin 4.1 Urine Color Urine Appearance Urine pH Ur Specific [place] Urine Protein Urine Glucose (UA) Urine Ketones Urine Blood Urine Nitrite Ur Leukocyte Esterase Urine RBC Urine WBC Ur Squamous Epith Cells Urine Bacteria COVID-19 (BIRGIT) COVID-19 Clin Com Influenza Type A (JULIA) Influenza Type B (JULIA) Influenza A & B Note 12/22/21 12/23/21 12/23/21 21:21 01:22 04:27 MCV 82.4 MCH 27.6 MCHC 33.5 RDW 13.5 Plt Count 191 MPV 10.4 Immature Gran % (Auto) 0.6 H Neut % (Auto) 80.1 H Lymph % (Auto) 10.7 L [place] % (Auto) 8.2 Eos % (Auto) 0.1 Baso % (Auto) 0.3 Lymph # (Auto) 2.6 [place] # (Auto) 2.0 H Eos # (Auto) 0.0 Baso # (Auto) 0.1 Abs Immat Gran (auto) 0.14 H Absolute Neuts (auto) 19.4 H Absolute Nucleated RBC 0.000 Nucleated RBC % (auto) 0.0 Smear Tech's Comments ESR Anion Gap Estim Creat Clear Calc Estimated GFR Random Glucose Lactic Acid 1.6 Calcium Total Bilirubin AST ALT Alkaline Phosphatase C-Reactive Protein Total Protein Albumin Urine Color YELLOW Urine Appearance CLEAR Urine pH 6.0 Ur Specific [place] <= 1.005 Urine Protein TRACE Urine Glucose (UA) NEG Urine Ketones NEG Urine Blood 1+ H Urine Nitrite NEG Ur Leukocyte Esterase NEG Urine RBC 1-4 Urine WBC 0-2 Ur Squamous Epith Cells 1+ Urine Bacteria NONE COVID-19 (BIRGIT) COVID-19 Clin Com Influenza Type A (JULIA) Influenza Type B (JULIA) Influenza A & B Note 12/23/21 04:27 MCV MCH MCHC RDW Plt Count MPV Immature Gran % (Auto) Neut % (Auto) Lymph % (Auto) [place] % (Auto) Eos % (Auto) Baso % (Auto) Lymph # (Auto) [place] # (Auto) Eos # (Auto) Baso # (Auto) Abs Immat Gran (auto) Absolute Neuts (auto) Absolute Nucleated RBC Nucleated RBC % (auto) Smear Tech's Comments ESR Anion Gap 10 L Estim Creat Clear Calc 97.1 Estimated GFR > 60 Random Glucose 108 Lactic Acid Calcium 8.2 L D Total Bilirubin AST ALT Alkaline Phosphatase C-Reactive Protein Total Protein Albumin Urine Color Urine Appearance Urine pH Ur Specific [place] Urine Protein Urine Glucose (UA) Urine Ketones Urine Blood Urine Nitrite Ur Leukocyte Esterase Urine RBC Urine WBC Ur Squamous Epith Cells Urine Bacteria COVID-19 (BIRGIT) COVID-19 Clin Com Influenza Type A (JULIA) Influenza Type B (JULIA) Influenza A & B Note Assessment and Plan (1) PNA (pneumonia): Status: Acute (2) Morbid obesity: Status: Acute (3) REED (acute kidney injury): Status: Acute Plan 56-year-old male with a past medical history of tobacco dependence, alcohol abuse; presented to the hospital today with a chief complaint of not feeling well/subjective fever/shortness of breath.? Noted to have pneumonia.? Admitted for further management.? Pneumonia: Concern for aspiration CT chest abnormal. Blood culture 1/2 positive for Gram-positive cocci. continue DuoNebs p.r.n, on IV vancomycin and Zosyn.? Cough suppressants Leukocytosis improving, Id evaluation noted-continue current antibiotic, nasal MRSA screen, HIV. If nasal screen MRSA positive than we will DC Zosyn. added swallow eval REED: Likely prerenal.? Improvin with gentle hydration, encouraged for p.o. intake and p.o. hydration. hypokalemia: adde d po potassium. Alcohol abuse:? monitor on CIWA protocol. Morbid obesity: 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 cut down calories and weight loss. Consider outpatient bariatric evaluation. DVT prophylaxis:? Lovenox need for inpatient:Pneumonia: Concern for aspiration,reed,hypokalemia Quality Stroke Does the patient have a stroke diagnosis?: No VTE Prior VTE?: No VTE Risk Level:: Medical - moderate - high VTE Device Contraindication: Treatment Not Indicated VTE Drug Contraindication: N/A - Med Ordered
--- NOTE | 2021-12-23 09:46 | MHC.CM.PN ---
CM spoke with Patient over the phone with the assist of a Telephonic Special Needs Child Caregiver. Patient lives alone in a house but sometimes stays with his Daughter/Amelia. Patient required no DME nor services [employer]; home no services is the goal and CM has initiated and will follow for dc planning.Patient's Sister Maureen at [phone] is the HCP. Patient received Pfizer/Covid vax X2 and Moderna booster X1. PCP is Dr. Lisa Bone.
--- NOTE | 2021-12-23 09:52 | P.CONPL_ITS ---
History of Present Illness History of Present Illness Consult date: 12/23/21 Chief complaint: PNA Narrative: This is an inpatient pulmonary consultation. The patient is a 56-year-old gentl jim . Is a healthy until back in June 2020 when he developed COVID-19. He recovered from that fully. Now he was in his usual state health until about 4-5 days prior to his admission. He started developing shortness of breath a dry cough and also some chest discomfort on the right side. His symptoms were not getting any better he was not feeling well so therefore decided to come into the ER. Upon arrival to the ER the patient did have a chest x-ray demonstrating a very dense opacity in the right upper lung zone. Therefore he underwent a CT scan of the chest confirming a significant dense consolidation of the right upper lobe apical segment. He denies aspiration denies any dental procedures denies any poor dentition. He is currently not smoking. Denies any exposure to any fumes or toxins. At this point this consistent with a severe community- acquired pneumonia and the patient will be treated accordingly. He will need to follow up with Pulmonary as an outpatient in order to make sure that this clears. If the area is not improving he may need a bronchoscopy. No broncho scopy needed at this time however. Review of Systems Constitutional: Constitutional: Reports no additional constitutional complaints, Denies chills, Reports fever(s) and Denies night sweats Eyes: Eyes: Reports no additional eye complaints, Denies blurry vision, Denies change in vision, Denies diplopia, Denies eye discharge, Denies loss of vision and Denies eye pain ENT: Denies dizziness Cardiovascular: Cardiovascular: Reports no additional cardiovascular complaints, Denies chest pain, Denies lightheadedness, Denies Loss of Consciousness and Reports dyspnea Respiratory: Respiratory: Denies chest congestion, Reports cough, Denies hemoptysis, Reports pain with cough and Reports dyspnea Gastrointestinal: Gastrointestinal: Reports no additional gastrointestinal complaints, Denies abdominal pain, Denies melena, Denies hematochezia, Denies change in bowel habits, Denies change in stool character and Reports diarrhea Genitourinary: Genitourinary: Reports no additional male genitourinary co mplaints, Denies hematuria, Denies oliguria, Denies difficulty urinating, Denies dysuria, Denies urinary frequency, Denies urinary hesitancy, Denies urinary incontinence and Denies urinary urgency Musculoskeletal: Musculoskeletal: Reports no additional musculoskeletal complaints, Denies numbness and Denies tingling Neurologic: Denies dizziness, Denies loss of vision, Denies numbness and Denies tingling Psychiatric: Psychiatric: Reports no additional psychiatric complaints Endocrine: Endocrine: Reports no additional endocrine complaints Hematologic/Lymphatic: Hematologic/Lymphatic: Reports no additional hematologic/lymphatic complaints Allergic/Immunologic: Allergic/Immunologic: Reports no additional allergic/immunologic complaints [facility] Past Medical History Medical History Hypertension Social History Social History Advance Directives: No Advance Directives Information Provided: No service: No Current occupational status: unemployed Meds Allergies Allergy/AdvReac Type Severity Reaction Status Date / Time No Known Allergies Allergy Verified 12/22/21 17:44 Active Medications: Current Medications Acetaminophen (Acetaminophen 325 Mg Tablet) 650 mg PO Q6H PRN PRN Reason: Pain, Mild (Pain Scale 1-3) Last Admin: 12/23/21 02:35 Dose: 650 mg Documented by: Benzonatate (Benzonatate 100 Mg Capsule) 100 mg PO TID PRN PRN Reason: Cough Enoxaparin Sodium (Enoxaparin Sodium 40 Mg/0.4 Ml Syringe) 40 mg SUBCUT Q24H SELMA Vancomycin HCl 1,000 mg/ (Sodium Chloride) 270 mls @ 270 mls/hr IV Q12H [facility] Piperacillin Sod/Tazobactam (Sod 3.375 gm/ Sodium Chloride) 50 mls @ 100 mls/hr IV Q6H [facility] Last Infusion: 12/23/21 05:19 Dose: Infused Documented by: Dextrose/Sodium Chloride (D5ns) 1,000 mls @ 100 mls/hr IVCONT .Q10H [facility] Last Admin: 12/23/21 01:54 Dose: 100 mls/hr Documented by: Melatonin (Melatonin 3 Mg Tablet) 6 mg PO BEDTIME PRN PRN Reason: Insomnia Pharmacy Consult (Consult Rx Perform Med Rec) 1 each MISCELLANE ONCE PRN PRN Reason: Consult order Pharmacy Consult (Consult Rx Vancomycin Dosing) 1 each MISCELLANE DAILY PRN PRN Reason: Consult order Senna (Sennosides 8.6 Mg Tablet) 17.2 mg PO BEDTIME PRN PRN Reason: Constipation Sodium Chloride (0.9 % Sodium Chloride Flush 3 Ml Syringe) 3 ml IVFLUSH QSHIFT SELMA Last Admin: 12/23/21 01:32 Dose: Not Given Documented by: Home Medications Medication Instructions Recorded Confirmed Last Taken Type No Known Home Meds 12/23/21 12/23/21 Unknown History Physical Exam 2 Vital Signs: Vital Signs: Last Vital Signs Temp 97.3 F 12/23/21 04:00 Pulse 68 12/23/21 07:31 Resp 19 12/23/21 07:31 BP 111/63 12/23/21 07:31 Pulse Ox 95 12/23/21 07:31 BMI result Body Mass Index 35.2 Const: General: alert Neck: Neck: Yes normal visual inspection, Yes full ROM and Yes no lymphadenop athy Chest: Chest palpation & inspection: normal inspection of the chest Resp: Auscultation: diminished lung sounds Cardio: Rate: regular rate Rhythm: regular rhythm Heart sounds: S1 n ormal heart sound present and S2 normal heart sound present GI: Palpation (GI): Soft to palpation and nontender Auscultation: normal bowel sounds Skin: General skin exam: rashes and/or lesions noted Results Laboratory Findings CBC and BMP: 12/23/21 04:27 12/23/21 04:27 Abnormal lab findings: Abnormal Labs 12/22/21 12/22/21 12/22/21 20:39 20:39 21:20 WBC 31.5 H* 29.7 H Hgb Hct Immature Gran % (Auto) 0.7 H 0.9 H Neut % (Auto) 82.3 H 83.5 H Lymph % (Auto) 8.3 L 7.0 L [place] # (Auto) 2.7 H 2.5 H Abs Immat Gran (auto) 0.22 H 0.26 H Absolute Neuts (auto) 25.9 H 24.8 H ESR Potassium Anion Gap Creatinine 1.59 H Random Glucose 131 H Calcium Total Bilirubin 1.5 H C-Reactive Protein 30.94 H Urine Blood 12/22/21 12/23/21 12/23/21 21:20 01:22 04:27 WBC 24.3 H Hgb 13.3 L Hct 39.7 L Immature Gran % (Auto) 0.6 H Neut % (Auto) 80.1 H Lymph % (Auto) 10.7 L [place] # (Auto) 2.0 H Abs Immat Gran (auto) 0.14 H Absolute Neuts (auto) 19.4 H ESR 36 H Potassium Anion Gap Creatinine Random Glucose Calcium Total Bilirubin C-Reactive Protein Urine Blood 1+ H 12/23/21 04:27 WBC Hgb Hct Immature Gran % (Auto) Neut % (Auto) Lymph % (Auto) [place] # (Auto) Abs Immat Gran (auto) Absolute Neuts (auto) ESR Potassium 3.2 L Anion Gap 10 L Creatinine Random Glucose Calcium 8.2 L D Total Bilirubin C-Reactive Protein Urine Blood Assessment and Plan (1) PNA (pneumonia): Status: Acute Plan Continue Zosyn and vancomycin IV at this time Monitor WBC count Requesting blood work Will arrange for the patient to have pulmonary follow-up as an outpatient in 1-2 weeks Procedures Date of Service Date of Service: 12/23/21
[2021-12-23] MEDS: Enoxaparin Sodium 40 MG/0.4 ML SYRINGE SUBCUT (09:58)
--- NOTE | 2021-12-23 11:02 | MHC.SL.SWA ---
Speech Pathologist Impression: WFL Risk of Aspiration Due to: History of Pneumonia Dysphasia Diet Status:No Change Liquid Consistency and Strategies for Safe Swallow: Liquid Intake Recommendation: Thin Solid Food Consistency: Dietary Recommendations: Regular Oral Medication Intake: Whole with Liquid Please contact the pharmacy regarding appropriate crushable or liquid drug formulations that are available whenever modified delivery is recommended. Compensatory Strategies and Precautions to be Taken for Safe Swallow: Sitting Upright (90 deg) Small Bites and Sips Alternate Liquids/Solids Rate of Ingestion Change Supervision While Eating and Drinking for Safe Swallow: None Needed Recommendation for Speech: NA:Typical Evaluation Comment: PROCUREMENT BUYER to f/u with nursing 1x time to ensure tolerance. : Typing Section Chief Clinican/Clinical Fellow: No Supervisory Statement: I have reviewed and agree with the student/clinical fellow's documentation: N/A Speech Language Pathologist: Kaye Fleming M.A., [facility]PROCUREMENT BUYER
--- NOTE | 2021-12-23 11:38 | PHA.PROG ---
Admission Date/Time: December 22, 2021 23:09 Indication: Pneumonia Weight in k.759 kg Adjusted body weight in K.08 kg [place] body weight in K.3 kg Obesity Dosing Indication % IBW: 151 % Serum Creatinine - Last 168 Hours 12/22/21 12/23/21 20:39 04:27 Creatinine 1.59 H 1.12 Estimated CrCl and GFR - Last 168 Hours 12/22/21 12/23/21 20:39 04:27 Estim Creat Clear Calc 68.4 97.1 Estimated GFR 46 > 60 Vancomycin Loading Dose: 2000 mg Current Vancomycin Dosing Regimen: 1000 mg Q12H Date and Time for next Vancomycin Level to be drawn: 12/24 @ 1200 Pharmacist Comments on Vancomycin Plan: Patient require careful monitor as patient is both obese and in REED First dose vancomycin 2000 mg given in the ED 12/23 @ 0225. Maitenance dose vancomycin 1000 mg Q12H to begin 12/23 @ 1400. Expected AUC 547 with a trough of 16.3 Trough to be drawn prior to 4th dose Pharmacy to monitor renal fucntion daily Hayley Roth PharmD Vancomycin dosing will take advantage of [employer] as a clinical decision support tool that uses Bayesian modeling to calculate individual patient's pharmacokinetic parameters and forecast the patient's drug concentration time course with the target goal AUC 24 range of 400 - 600 mg/L/hr.
[2021-12-23] MEDS: vancomycin HCL 1,000 MG in 0.9 % Sodium Chloride 250 ML 270 MG IV (14:04)
[2021-12-23] MEDS: 0.9 % Sodium Chloride Flush 3 ML SYRINGE IVFLUSH (16:02)
--- NOTE | 2021-12-23 16:17 | P.CNID_ITS ---
History of Present Illness Data of Consult Service Date: 12/23/21 Requesting physician: Ariadna Alvarez Primary Care Provider: FERNANDO Valles HPI Reason for consult: pneumonia RUL He presents with several days weakness and fatigue. He has diarrhea as well. He has no COVID CT RUL area dense consolidation. Review of Systems Review of Systems: Yes all other systems are reviewed and are negative PMFSH Past Medical History Medical History Hypertension Family History Family history: reviewed and not pertinent Social History Social History Advance Directives: No Advance Directives Information Provided: No service: No Current occupational status: unemployed Meds Allergies Allergy/AdvReac Type Severity Reaction Status Date / Time No Known Allergies Allergy Verified 12/22/21 17:44 Active Medications: Current Medications Acetaminophen (Acetaminophen 325 Mg Tablet) 650 mg PO Q6H PRN PRN Reason: Pain, Mild (Pain Scale 1-3) Last Admin: 12/23/21 02:35 Dose: 650 mg Documented by: Benzonatate (Benzonatate 100 Mg Capsule) 100 mg PO TID PRN PRN Reason: Cough Enoxaparin Sodium (Enoxaparin Sodium 40 Mg/0.4 Ml Syringe) 40 mg SUBCUT Q24H [facility] Last Admin: 12/23/21 09:58 Dose: 40 mg Documented by: Vancomycin HCl 1,000 mg/ (Sodium Chloride) 270 mls @ 270 mls/hr IV Q12H [facility] Last Admin: 12/23/21 14:04 Dose: 270 mls/hr Documented by: Piperacillin Sod/Tazobactam (Sod 3.375 gm/ Sodium Chloride) 50 mls @ 100 mls/hr IV Q6H [facility] Last Admin: 12/23/21 15:58 Dose: 100 mls/hr Documented by: Dextrose/Sodium Chloride (D5ns) 1,000 mls @ 100 mls/hr IVCONT .Q10H [facility] Last Admin: 12/23/21 09:57 Dose: 100 mls/hr Documented by: Melatonin (Melatonin 3 Mg Tablet) 6 mg PO BEDTIME PRN PRN Reason: Insomnia Pharmacy Consult (Consult Rx Perform Med Rec) 1 each MISCELLANE ONCE PRN PRN Reason: Consult order Pharmacy Consult (Consult Rx Vancomycin Dosing) 1 each MISCELLANE DAILY PRN PRN Reason: Consult order Senna (Sennosides 8.6 Mg Tablet) 17.2 mg PO BEDTIME PRN PRN Reason: Constipation Sodium Chloride (0.9 % Sodium Chloride Flush 3 Ml Syringe) 3 ml IVFLUSH QSHIFT [facility] Last Admin: 12/23/21 16:02 Dose: 3 ml Documented by: Home Medications Medication Instructions Recorded Confirmed Last Taken Type No Known Home Meds 12/23/21 12/23/21 Unknown History Physical Exam Vital Signs: Vital Signs: Last Vital Signs Temp 98.7 F 12/23/21 13:31 Pulse 78 12/23/21 13:31 Resp 18 12/23/21 13:31 BP 124/75 12/23/21 13:31 Pulse Ox 96 12/23/21 13:31 BMI result Body Mass Index 35.2 Const: General: cooperative HEENT: Head: Yes normal to inspection Resp: Effort & Inspection: normal respiratory effort Cardio: Rate: regular rate Rhythm: regular rhythm GI: Palpation (GI): Soft to palpation and nontender Skin: General skin exam: no rashes or lesions noted Results Labs CBC & Chem 7: 12/23/21 04:27 12/23/21 04:27 Labs: Short CBC 12/22/21 12/22/21 12/23/21 Range/Units 20:39 21:20 04:27 WBC 31.5 H* 29.7 H 24.3 H (4.8-10.8) X10*3/uL Hgb 15.4 14.7 13.3 L (14.0-18.0) g/dl Hct 46.1 44.1 39.7 L (42.0-52.0) % Plt Count 221 217 191 (160-400) X10*3/uL BMP 12/22/21 12/23/21 20:39 04:27 Sodium 140 138 Potassium 3.5 3.2 L Chloride 101 103 Carbon Dioxide 27 28 BUN 15 12 Creatinine 1.59 H 1.12 Calcium 9.0 8.2 L D Liver Function 12/22/21 Range/Units 20:39 Total Bilirubin 1.5 H (0.0-1.0) mg/dL AST 22 (5-37) U/L ALT 35 (0-40) U/L Alkaline Phosphatase 110 (39-117) U/L Albumin 4.1 (3.5-5.0) g/dL Urine 12/23/21 Range/Units 01:22 Urine Color YELLOW Urine Appearance CLEAR Urine pH 6.0 (5.0-8.0) Ur Specific Condon <= 1.005 (1.005-1.025) Urine Protein TRACE (NEG-TRACE) MG/DL Urine Glucose (UA) NEG (NEG) MG/DL Microbiology Microbiology Results: Microbiology 12/22/21 21:20 Blood - Venous Blood Culture - Preliminary Prelim: GPC Gram Stain only Assessment and Plan (1) PNA (pneumonia): Status: Acute There is concern over gram positive cocci blood He has possible MRSA pneumonia He has HIV test pending. Plan Continue Vancomycin and Zosyn for now. Check MRSA nares. Would stop Zosyn if MRSA found and duration to be determined Await HIV test.
[2021-12-23] MEDS: Thiamine HCL 100 MG TABLET PO (17:36)
[2021-12-23] MEDS: Potassium Chloride Packet 20 MEQ PACKET 40 MEQ PO (17:36)
[2021-12-23] MEDS: Folic Acid 1 MG TABLET PO (17:36)
--- NOTE | 2021-12-23 19:05 | PC.NURSE ---
1914 fluids started late due to previous fluids still running.
[2021-12-24 02:01] VITALS: BMI 34.7
[2021-12-24 02:13] VITALS: BP 140/63; PULSE 78; RESP 17; TEMP 36.9; O2SAT 96
[2021-12-24] MEDS: vancomycin HCL 1,000 MG in 0.9 % Sodium Chloride 250 ML 270 MG IV ×3 (02:55→20:55)
--- NOTE | 2021-12-24 03:52 | PC.NURSE ---
Called to pt.'s room by pt. c/o burning at IV site during Vanco. infusion. IV site noted to be slightly swollen and slightly pink. Provider MD Taras notified and aware, no new orders at this time. Warm compress applied to site and will replace IV access on other arm. Will continue to monitor
[2021-12-24 04:00] VITALS: BP 135/78; PULSE 73; RESP 16; TEMP 36.7; O2SAT 97
[2021-12-24] MEDS: Dextrose 5 % and 0.9 % NaCl 1,000 ML 100 ML IVCONT (04:47)
[2021-12-24] MEDS: Piperacillin Sodium/Tazobactam 3.375 GM in 0.9 % Sodium Chloride 50 ML IV ×4 (04:51→21:56)
[2021-12-24 05:55] LABS: Hematocrit 40.2 % (42.0-52.0); Hemoglobin 13.4 g/dl (14.0-18.0); Mean Corpuscular HGB Conc 33.3 g/dl (31.0-36.0); Mean Corpuscular Hemoglobin 27.3 pg (27.0-33.0); Mean Platelet Volume 11.1 fL (9.4-12.4); Platelet Count 213 X10*3/uL (160-400); Red Cell Distribution Width 13.8 % (11.0-16.0); White Blood Count 11.4 X10*3/uL (4.8-10.8)
[2021-12-24 06:21] LABS: Anion Gap 11 (12-20); Blood Urea Nitrogen 10 mg/dL (9-16); Calcium 8.3 mg/dL (8.4-10.2); Carbon Dioxide 24 mmol/L (22-29); Chloride 109 mmol/L (96-108); Creatinine Clr Calc Pharmacy 122.6; Estimated Glomerular Filt Rate > 60; Glucose Random 107 mg/dL (60-115); Potassium 3.9 mmol/L (3.3-5.1); Sodium 140 mmol/L (135-145)
[2021-12-24 07:28] VITALS: BP 165/95; PULSE 72; RESP 16; TEMP 36.7; O2SAT 96
--- NOTE | 2021-12-24 08:48 | P.PNIM_ITS ---
Subjective Subjective Date of Service: 12/24/21 Interval History: pneumonia ,reed Review of Systems still sob, has cough Denies any chest pain or abdominal pain or nausea or vomiting or fever or chills. Physical Exam Vital Signs: Vital Signs: Last Vital Signs Temp 98.1 F 12/24/21 07:28 Pulse 72 12/24/21 07:28 Resp 16 12/24/21 07:28 BP 165/95 H 12/24/21 07:28 Pulse Ox 96 12/24/21 07:28 BMI result Body Mass Index 34.7 Appearance: Alert.? Oriented X3.? not in distress.? cvs: rrr, [id number] , no murmur res: air entry diminshed at bases ,few rhonchii abd: no rebound or guarding ,nt, bs present. ext pulses present , no cyanosis . neuro: axo3 , nonfocal. Objective Data Active Medications Acetaminophen (Acetaminophen 325 Mg Tablet) 650 mg PO Q6H PRN PRN Reason: Pain, Mild (Pain Scale 1-3) Last Admin: 12/23/21 02:35 Dose: 650 mg Documented by: LINDSEY Benzonatate (Benzonatate 100 Mg Capsule) 100 mg PO TID PRN PRN Reason: Cough Enoxaparin Sodium (Enoxaparin Sodium 40 Mg/0.4 Ml Syringe) 40 mg SUBCUT Q24H [facility] Last Admin: 12/23/21 09:58 Dose: 40 mg Documented by: AICHA Folic Acid (Folic Acid 1 Mg Tablet) 1 mg PO DAILY [facility] Last Admin: 12/23/21 17:36 Dose: 1 mg Documented by: NEERAJ Vancomycin HCl 1,000 mg/ (Sodium Chloride) 270 mls @ 270 mls/hr IV Q12H [facility] Last Infusion: 12/24/21 04:41 Dose: 0 mls/hr Documented by: TIM Piperacillin Sod/Tazobactam (Sod 3.375 gm/ Sodium Chloride) 50 mls @ 100 mls/hr IV Q6H [facility] Last Infusion: 12/24/21 05:22 Dose: 0 mls/hr Documented by: TIM Dextrose/Sodium Chloride (D5ns) 1,000 mls @ 100 mls/hr IVCONT .Q10H [facility] Last Admin: 12/24/21 08:48 Dose: Not Given Documented by: NEO Non-Admin Reason: IV Running Melatonin (Melatonin 3 Mg Tablet) 6 mg PO BEDTIME PRN PRN Reason: Insomnia Pharmacy Consult (Consult Rx Perform Med Rec) 1 each MISCELLANE ONCE PRN PRN Reason: Consult order Pharmacy Consult (Consult Rx Vancomycin Dosing) 1 each MISCELLANE DAILY PRN PRN Reason: Consult order Senna (Sennosides 8.6 Mg Tablet) 17.2 mg PO BEDTIME PRN PRN Reason: Constipation Sodium Chloride (0.9 % Sodium Chloride Flush 3 Ml Syringe) 3 ml IVFLUSH QSHIFT [facility] Last Admin: 12/24/21 02:53 Dose: Not Given Documented by: TIM Non-Admin Reason: IV Running Thiamine HCl (Thiamine Hcl 100 Mg Tablet) 100 mg PO DAILY [facility] Last Admin: 12/23/21 17:36 Dose: 100 mg Documented by: NEERAJ Labs CBC & Chem 7: 12/24/21 05:32 12/24/21 11:58 Labs: Laboratory Results - last 24 hr 12/23/21 12/24/21 12/24/21 19:16 05:32 05:32 MCV 82.0 MCH 27.3 MCHC 33.3 RDW 13.8 Plt Count 213 MPV 11.1 Absolute Nucleated RBC 0.000 Nucleated RBC % (auto) 0.0 Anion Gap 11 L Estim Creat Clear Calc 122.6 Estimated GFR > 60 Random Glucose 107 Calcium 8.3 L Nasal Screen MRSA (PCR) Cancelled Nasal S. aureus Screen Cancelled Nasal MRSA/S.aureus Interp Cancelled Microbiology Microbiology Results: Microbiology 12/22/21 22:17 Blood Culture - Preliminary Blood - Venous No growth after 24 hours. 12/22/21 21:20 Blood Culture - Preliminary Blood - Venous Prelim: GPC Gram Stain only Assessment and Plan Plan 56-year-old male with a past medical history of tobacco dependence, alcohol abuse; presented to the hospital today with a chief complaint of not feeling well/subjective fever/shortness of breath.? Noted to have pneumonia.? Admitted for further management.? Pneumonia: Concern for aspiration CT chest abnormal. Blood culture 1/2 positive for Gram-positive cocci. continue DuoNebs p.r.n, on IV vancomycin and Zosyn.? Cough suppressants Leukocytosis improving, Id evaluation noted-continue current antibiotic, nasal MRSA screen, HIV. If nasal screen MRSA positive than we will DC Zosyn. added swallow eval REED: Likely prerenal.? Improvin with gentle hydration, encouraged for p.o. intake and p.o. hydration. hypokalemia: adde d po? potassium. Alcohol abuse:?? monitor on CIWA protocol. Morbid obesity:? 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 cut down calories and weight loss.? Consider outpatient bariatric evaluation. DVT prophylaxis:? Lovenox need for inpatient:Pneumonia: Concern for aspiration,reed,hypokalemia Quality Stroke Does the patient have a stroke diagnosis?: No VTE Prior VTE?: No VTE Risk Level:: Medical - moderate - high VTE Device Contraindication: Treatment Not Indicated VTE Drug Contraindication: N/A - Med Ordered
[2021-12-24 08:53] LABS: HIV AB/AG Nonreactive (Nonreactive); HIV Num 1 0.08 S/CO (0.00-0.99)
[2021-12-24] MEDS: Folic Acid 1 MG TABLET PO (09:43)
[2021-12-24] MEDS: Thiamine HCL 100 MG TABLET PO (09:43)
--- NOTE | 2021-12-24 10:26 | MHC.SL.SWA ---
Speech Pathologist Impression: Risk of Aspiration Due to: History of Pneumonia Dysphasia Diet Status: Liquid Consistency and Strategies for Safe Swallow: Liquid Intake Recommendation: Thin Liquid Intake Strategies: Unrestricted Solid Food Consistency: Dietary Recommendations: Regular Additional Modifications to Solid Foods: Oral Medication Intake: Whole with Liquid Please contact the pharmacy regarding appropriate crushable or liquid drug formulations that are available whenever modified delivery is recommended. Compensatory Strategies and Precautions to be Taken for Safe Swallow: Sitting Upright (90 deg) Small Bites and Sips Alternate Liquids/Solids Supervision While Eating and Drinking for Safe Swallow: None Needed Foods to Avoid: Swallowing Recommended Treatments: Recommendation for Speech: Note: A duplicate order for a BSE was requested 12/23/[address] Alvarez. Pt was seen for BSE on 12/23/21 a.m. per previous request from Dr. Berg. Pt presented yesterday a.m. with swallow WNL, recommendation for a Regular Diet w/ Thin Liquids, w/ one f/u from speech to assess toleration. Pt was seen this a.m. soon after he had finished breakfast. Pt stated that he had been hungry and ate everything he was given (which was evident, as tray had no left over food or drink). Pt reports that he had no difficulty with eating or swallowing. Pt observed taking sips of water, noted to have oral and pharyngeal phase wnl, no clinical s/s of aspiration. Recommend continue on Regular Diet w/ Thin Liquids. Pt is able to independently feed self. Discussed duplicate order and previous BSE and findings with Dr. Alvarez in person. No further SPOUT LINER services needed at this time. Please re-order if concerns regarding swallowing arise. Comment: Frequency/Duration: Date Range for Service Req: Timeline to reassess: Barrel Filler Clinican/Clinical Fellow: No Supervisory Statement: I have reviewed and agree with the student/clinical fellow's documentation: N/A Speech Language Pathologist: Zenobia House M.A., CCC-SPOUT LINER
[2021-12-24 11:08] VITALS: BP 132/75; PULSE 72; RESP 17; TEMP 36.8; O2SAT 96
[2021-12-24 12:31] LABS: Estimated Glomerular Filt Rate > 60
[2021-12-24 12:46] LABS: Vancomycin Trough 4.3 mcg/mL (10.0-20.0)
--- NOTE | 2021-12-24 13:06 | HE.PHANOTE ---
ALEJO LNI INCREASE IN DOSE TO 1G Q8H, MAY NEED TO INCREASE FURTHER THERE IS RENAL FUNCTION IMPROVEMENT. NEXT TROUGH IS 12/25/2021 @1100. Rafi
[2021-12-24 15:45] VITALS: BP 144/77; PULSE 67; RESP 17; TEMP 36.6; O2SAT 96
[2021-12-24] MEDS: 0.9 % Sodium Chloride Flush 3 ML SYRINGE IVFLUSH (17:55)
[2021-12-24 19:22] VITALS: BP 167/91; PULSE 71; RESP 14; TEMP 37.1; O2SAT 97
[2021-12-25] VITALS: BP 163/90; PULSE 67; RESP 14; TEMP 37; O2SAT 96
[2021-12-25 04:00] VITALS: BP 140/66; PULSE 73; RESP 18; TEMP 36.9; O2SAT 97
[2021-12-25] MEDS: Piperacillin Sodium/Tazobactam 3.375 GM in 0.9 % Sodium Chloride 50 ML IV ×2 (04:56→09:45)
[2021-12-25] MEDS: vancomycin HCL 1,000 MG in 0.9 % Sodium Chloride 250 ML 270 MG IV (05:29)
[2021-12-25 07:46] VITALS: BP 164/78; PULSE 70; RESP 17; TEMP 36.7; O2SAT 98
[2021-12-25] MEDS: 0.9 % Sodium Chloride Flush 3 ML SYRINGE IVFLUSH (09:44)
[2021-12-25] MEDS: Thiamine HCL 100 MG TABLET PO (09:44)
[2021-12-25] MEDS: Folic Acid 1 MG TABLET PO (09:44)
[2021-12-25 10:03] LABS: Creatinine Clr Calc Pharmacy 112.4; Estimated Glomerular Filt Rate > 60
[2021-12-25 10:42] LABS: Vancomycin Trough 13.4 mcg/mL (10.0-20.0)
--- NOTE | 2021-12-25 11:14 | HE.PHANOTE ---
VANCO DOSING TROUGH TODAY OF 13.4. DOSE DISCONTINUED AT 3101D0H. THE TROUGH WAS A LOT HIGHER THAN EXPECTED TO ANOTHER TROUGH ORDERED FOR [employer] 1700.
[2021-12-25 11:26] VITALS: BP 146/74; PULSE 71; RESP 18; TEMP 36.8; O2SAT 96
[2021-12-25] MEDS: Acetaminophen 325 MG TABLET 650 MG PO (11:58)
--- NOTE | 2021-12-25 12:56 | PM.DS ---
DS: Providers Provider Date of Service: 12/25/21 Date of admission: 12/22/21 23:09 Primary care physician: FERNANDO Valles Consults: 12/22/21 23:09 Consult to Infectious Diseases Routine Consulting Provider: Annmarie Singleton Reason for consultation: pna; severe leukocytosis Consult to Pulmonology Routine Consulting Provider: Italo Rees Reason for consultation: Lung lesion: ?PNA vs mass lesion DS: Diagnosis Discharge Diagnosis (1) PNA (pneumonia): Status: Acute (2) Morbid obesity: Status: Acute (3) REED (acute kidney injury): Status: Acute DS: Summary Hospital Course Hospital Course: 56-year-old male with a past medical history of tobacco dependence, alcohol abuse; presented to the hospital today with a chief complaint of not feeling well; patient reports that for the past couple days she has been having not feeling well, having dry cough; also had shortness of breath which worsens on exertion.? Mentioned that he drinks about 6 beers every day and last Tuesday he drinks beers as well as used cocaine and followed by he slept over; and from Tuesday he feeling like having fevers and not well; hence decided to come to the ER for further evaluation.? Denies any weight loss or change in appetite.? Denies any numbness tingling or focal weakness.? Denies any nausea vomiting.? Denies any urinary symptoms.? Patient reports that he has intermittent headaches and also had few episodes of loose stools. Hospital course: Patient was admitted for possible pneumonia -started on IV antibiotics -patient seems to be improving , leukocytosis improving, no fever. 1 out of 2 blood culture -grew Streptococcus- patient seems to be improved significantly discussed with infectious disease patient is going home with p.o. antibiotics. Chest the imaging was reviewed by Pulmonary and also discussed with the patient follow-up out patiently with Pulmonary in next 2-3 weeks and may need repeat chest imaging at that point to see resolution of pneumonia. Further management outpatient as per PCP and Pulmonary. Above management discussed with the patient in detail length with the help of donor relations coordinator- he understand and in agreement with the above plan, time spent 50 minutes and 50% time spent on counseling. Significant findings: As above. Procedures performed: None. Treatment and response: As above. Complications: None. Time Spent with Patient Time attestation: Total time spent providing and/or coordinating discharge services: Discharge coordination time: Greater than 30 minutes Quality: Safe Use of Opioids Does Pt have an Active Cancer Diagnosis on the Problem List?: No Quality: Stroke Does the patient have a stroke diagnosis?: No Physical Exam Vital Signs: Vital Signs: Last Vital Signs Temp 98.2 F 12/25/21 11:26 Pulse 71 12/25/21 11:26 Resp 18 12/25/21 11:26 BP 146/74 H 12/25/21 11:26 Pulse Ox 96 12/25/21 11:26 BMI result Body Mass Index 34.7 ?Gen: Appears be in no acute distress HEENT:? NCAT,? Moist mucosa. Pulmonary:? Fair air entry, no rales or wheezing. CVS:? Normal S1-S2 Abdomen: BS+, Soft, Nontender Extremities:? Warm well perfused Neuro:? Alert and awake. Nonfocal DS: Data Data Completed and Pending Labs on day of discharge: Laboratory Results - last 24 hr 12/25/21 12/25/21 09:28 09:28 Creatinine 0.96 Estim Creat Clear Calc 112.4 Estimated GFR > 60 Vancomycin Trough 13.4 Preliminary micro results at discharge 12/22/21 21:20 Blood Culture - Preliminary Blood - Venous Streptococcus species 12/22/21 22:17 Blood Culture - Preliminary Blood - Venous No growth after 48 hours. Additional Comments Additional comments: CT/CT chest wo con IMPRESSION: Dense consolidation in the right upper lobe with air bronchograms. Given elevated white blood cell count this probably represents pneumonia. Mass cannot be excluded and chest x-ray follow-up following treatment is recommended.? ? Fleischner guidelines were followed. Discharge Plan Discharge Patient Disposition: Home, Self-Care Discharge Diagnosis: pneumonia ,reed Referrals: Lisa Bone PA [Primary Care Provider] - 1 Week Saman Young MD [Physician] - 1 Week (fOLLOW UP outpatiently) Discharge Medications: New benzonatate 100 mg Capsule 100 mg PO TID PRN (Reason: Cough) Qty: 10 0RF folic acid 1 mg Tablet 1 mg PO DAILY Qty: 30 0RF thiamine mononitrate (vit B1) 100 mg Tablet 100 mg PO DAILY Qty: 30 0RF doxycycline hyclate 100 mg tablet 100 mg PO BID Qty: 20 0RF amoxicillin-pot clavulanate 875-125 mg tablet 1 tab PO Q12H Qty: 20 0RF Discharge Orders: Discharge Order (Routine); Ordered 12/25/21 Ordered By: Ariadna Alvarez Diet: advance to usual diet Activity on Discharge: As tolerated Stand Alone Forms: Patient Portal Discharge page Care Plan Goals: Patient was admitted for possible pneumonia -started on IV antibiotics -patient seems to be improving , leukocytosis improving, no fever. 1 out of 2 blood culture -grew Streptococcus- patient seems to be improved significantly discussed with infectious disease patient is going home with p.o. antibiotics. Chest the imaging was reviewed by Pulmonary and also discussed with the patient follow-up out patiently with Pulmonary in next 2-3 weeks and may need repeat chest imaging at that point to see resolution of pneumonia. Further management outpatient as per PCP and Pulmonary. Health Concerns: Please complete course of antibiotics for pneumonia. If any new fevers or worsening shortness of breath or any new symptoms please go to nearest emergency room. Plan of Treatment: Patient will need to complete the course of antibiotic, follow up with Pulmonary out patiently for repeat chest imaging to see resolution of pneumonia and further management. Patient says that he already has appointment. Assessment: As above.
--- NOTE | 2021-12-25 13:03 | MHC.CM.PN ---
pt dcd home no skilled servceis ordered by
[2021-12-25 13:10] LABS: Immunoglobulin G Subclass 1 425 mg/dL (382-929); Immunoglobulin G Subclass 2 382 mg/dL (241-700); Immunoglobulin G Subclass 3 92 mg/dL (22-178); Immunoglobulin G Subclass 4 72.1 mg/dL (4-86); Immunoglobulin G Total 953 mg/dL (600-1640)
[2021-12-25] MEDS: Amoxicillin/Potassium Clav 875 MG TABLET PO (13:33)
== END 2021-12-25 13:38 | disposition home or self-care (01) | DRG 137 ==
LOC: HO.ED 20:28 → HO.EDOVER 23:16 → HO.IMC 12-24 00:54
PROVIDERS: Hospitalist; Physician Assistant Medical; Admitting Provider Hospitalist; Emergency Provider Emergency Medicine; PCP Student in an Organized Health Care Education/Training Program; Visit Provider Internal Medicine
DX: J69.0 Pneumonitis due to inhalation of food and vomit (principal); N17.9 Acute kidney failure, unspecified; E66.01 Morbid (severe) obesity due to excess calories; F10.10 Alcohol abuse, uncomplicated; I10 Essential (primary) hypertension; F17.210 Nicotine dependence, cigarettes, uncomplicated; Z20.822 Contact with and (suspected) exposure to COVID-19; Z86.16 Personal history of COVID-19; Z71.6 Tobacco abuse counseling; Z68.34 Body mass index [BMI] 34.0-34.9, adult
CPT/HCPCS: 36415; 71046; 71250; 74176; 80048; 80053; 80202; 81001; 82565; 82784; 83605; 85025; 85027; 85652; 86140; 87040; 87077; 87186; 87205; 87389; 87502; 87635; 87640; 87641; 92526; 92610; 96361; 96365; 99285; J1650; J2543; J3370

== ENCOUNTER 2022-01-01 11:16 | Emergency (ER) | payer OTHER, SELFPAY ==
[2022-01-01 12:07] VITALS: BP 166/85; PULSE 70; RESP 20; TEMP 35.8; O2SAT 97; BMI 33.3
== END 2022-01-01 13:45 | disposition left against medical advice (07) ==
PROVIDERS: Emergency Provider Emergency Medicine
DX: Z76.0 Encounter for issue of repeat prescription (principal); I10 Essential (primary) hypertension
CPT/HCPCS: 99281

== ENCOUNTER 2022-01-07 00:24 | Emergency (ER) | payer OTHER, SELFPAY ==
[2022-01-07] VITALS (7 sets, daily range): BP systolic 153–226; BP diastolic 72–104; PULSE 58–71; RESP 16–28; TEMP 36.7–36.8; O2SAT 93–99; BMI 33.5
--- NOTE | 2022-01-07 | ECG_ITS ---
Test Reason : DIZZINESS Blood Pressure : / mmHG Vent. Rate : 069 BPM Atrial Rate : 069 BPM P-R Int : 162 ms QRS Dur : 092 ms QT Int : 404 ms P-R-T Axes : 013 -10 147 degrees QTc Int : 432 ms Normal sinus rhythm Possible Left atrial enlargement Left ventricular hypertrophy with repolarization abnormality ( Deford product ) Abnormal ECG When compared with ECG of 31-MAR-2020 15:12, No significant change was found Referred By: Generic ED Physician Electronically Signed By:ROD BLUE MD
--- NOTE | ~2022-01-07 | CT_ITS ---
EXAMINATION: CT HEAD WITHOUT CONTRAST CLINICAL INFORMATION: Dizziness COMPARISON: 05/01/2019 TECHNIQUE: Contiguous axial imaging was performed from the skull base to vertex without intravenous administration of contrast. This CT examination was performed using dose optimization techniques as appropriate, variously including the following: *Automated exposure control *Adjustment of mA and/or kV according to patient size (this includes techniques or standardized protocols for targeted exams where dose is matched to indication/reason for exam; i.e. extremities or head) *Use of iterative reconstruction technique DLP: 776 mGy-cm FINDINGS: There is no evidence of acute intracranial hemorrhage or territorial infarction. No abnormal mass effect or midline shift is seen. [place] to white matter differentiation is well preserved. No extra-axial fluid collections are identified. The ventricles are normal in size. There is no abnormal attenuation within the brain parenchyma. The osseous structures and soft tissues are normal. There is mucosal thickening of the bilateral ethmoid air cells and slight mucosal thickening of the maxillary sinuses. The mastoid air cells are well-aerated. CT/CT head/brain wo con IMPRESSION: No acute intracranial pathology.
[2022-01-07 00:53] LABS: MANUAL DIFF FLAG NO
[2022-01-07 00:54] LABS: Basophils Absolute Auto 0.1 X10*3/uL (0.0-0.2); Basophils Percent Auto 0.5 % (0-2); Eosinophils Absolute Auto 0.1 X10*3/uL (0.0-0.4); Eosinophils Percent Auto 1.1 % (0-4); Hematocrit 44.1 % (42.0-52.0); Hemoglobin 14.4 g/dl (14.0-18.0); Imm Gran Abs Auto 0.02 X10*3/uL (0.00-0.03); Imm Gran Pct Auto 0.2 % (0.0-0.4); Lymphocytes Absolute Auto 2.9 X10*3/uL (1.2-4.9); Mean Corpuscular HGB Conc 32.7 g/dl (31.0-36.0); Mean Corpuscular Volume 82.7 fL (80.0-98.0); Mean Platelet Volume 10.6 fL (9.4-12.4); Monocytes Absolute Auto 0.8 X10*3/uL (0.1-1.2); Neutrophils Absolute Auto 5.4 x10*3/uL (2.0-8.3); Neutrophils Percent Auto 58.2 % (45-73); Platelet Count 325 X10*3/uL (160-400); Red Blood Count 5.33 X10*6/uL (4.60-5.80); Red Cell Distribution Width 13.8 % (11.0-16.0); White Blood Count 9.2 X10*3/uL (4.8-10.8)
[2022-01-07 01:14] LABS: Total Protein 7.7 g/dL (6.5-8.0)
[2022-01-07 01:20] LABS: Troponin-I High Sensitivity 20.3 ng/L (<3.5-35.0)
[2022-01-07 01:27] LABS: Alanine Aminotransferase 77 U/L (0-40); Albumin Level 4.2 g/dL (3.5-5.0); Alkaline Phosphatase 95 U/L (39-117); Anion Gap 13 (12-20); Aspartate Amino Transferase 26 U/L (5-37); Bilirubin Total 0.3 mg/dL (0.0-1.0); Blood Urea Nitrogen 12 mg/dL (9-16); Calcium 9.1 mg/dL (8.4-10.2); Carbon Dioxide 24 mmol/L (22-29); Chloride 106 mmol/L (96-108); Creatinine Clr Calc Pharmacy 103.8; Estimated Glomerular Filt Rate > 60; Glucose Random 119 mg/dL (60-115); Potassium 3.7 mmol/L (3.3-5.1); Sodium 139 mmol/L (135-145)
[2022-01-07] MEDS: 0.9 % Sodium Chloride 1,000 ML 999 ML IV ×2 (03:58→05:01)
--- NOTE | 2022-01-07 05:44 | ED.DIZZY ---
HPI - Dizziness General Chief Complaint: Dizziness Stated Complaint: dizziness Time Seen by Provider: 01/07/22 03:13 Source: patient and finance assistant Mode of arrival: ambulatory Limitations: no limitations History of Present Illness HPI Narrative: 56-year-old male came in for evaluation of having generalized weakness and dizziness. Patient recently was admitted for pneumonia and positive blood culture patient was discharged home on doxycycline and Augmentin, patient describing dizziness and feeling lightheadedness when he changed position from supine to standing, patient is able to tolerate p.o. intake with no nausea or vomiting patient also declined diarrhea. Decline fever or chills. Related Data Previous Rx's Medication Instructions Recorded amoxicillin 875 mg-potassium 1 tab PO Q12H #20 tab 12/25/21 clavulanate 125 mg tablet benzonatate 100 mg capsule 100 mg PO TID PRN #10 cap 12/25/21 doxycycline hyclate 100 mg tablet 100 mg PO BID #20 tab 12/25/21 folic acid 1 mg tablet 1 mg PO DAILY #30 tab 12/25/21 thiamine mononitrate (vit B1) 100 100 mg PO DAILY #30 tab 12/25/21 mg tablet Allergies Allergy/AdvReac Type Severity Reaction Status Date / Time No Known Allergies Allergy Verified 12/22/21 17:44 Review of Systems Review of Systems: All other systems are reviewed and are negative Constitutional: Reports as per HPI and Reports no additional constitutional complaints Eyes: Reports as per HPI and Reports no additional eye complaints Reports system reviewed and no additional complaints, except as documented Cardiovascular: Reports as per HPI and Reports no additional cardiovascular complaints Respiratory: Reports as per HPI and Reports no additional respiratory complaints Gastrointestinal: Reports as per HPI and Reports no additional gastrointestinal complaints Genitourinary: Reports no additional female genitourinary complaints Musculoskeletal: Reports no additional musculoskeletal complaints Skin/Breast: Reports system reviewed and no additional complaints, except as docu Psychiatric: Reports no additional psychiatric complaints Endocrine: Reports no additional endocrine complaints Hematologic/Lymphatic: Reports no additional hematologic/lymphatic complaints Allergic/Immunologic: Reports no additional allergic/immunologic complaints Reports system reviewed and no additional complaints, except as documented and Reports Abnormal speech present [facility] Past Medical History Medical History Hypertension Social History Social History Household Members: None Housing: House Do you presently have visiting nurse or other home services: No Patient Tobacco Use Status: Never used Tobacco Substance Use Type: Crack/Cocaine Advance Directives: No service: No Current occupational status: unemployed Physical Exam Vital Signs: Vital Signs: Last Vital Signs Temp 98.1 F 01/07/22 04:00 Pulse 58 01/07/22 04:00 Resp 16 01/07/22 04:00 BP 162/83 H 01/07/22 04:34 Pulse Ox 98 01/07/22 04:00 BMI result Body Mass Index 33.5 Vital signs have been reviewed as appeared to be correct. Blood pressure normal. Heart rate normal. Respiration rate normal. Temperature normal. Oxygen saturation normal. Appearance: Alert. Oriented X3. No acute distress. Head: Normal external exam. Normocephalic. Atraumatic. No Diaz signs noted. No raccoon eyes noted Eyes: PERRLA. EOMI. Conjunctiva and sclera normal. Eyelids normal. ENT: TM's Normal. Pharynx normal. Uvula midline. Moist mucous membranes. No trismus noted. No drooling noted. No muffled voice noted. Neck: Normal inspection. Neck supple. FROM. No adenopathy. Thyroid Normal. No meningeal signs. No neck mass noted. CVS: Normal heart rate and rhythm. Heart sound normal. No murmurs noted. Pulses normal throughout. Respiratory: No respiratory distress. Painless inspiration. Breath sounds normal. No wheezes/rales/rhonchi noted. Chest nontender. No accessory muscle usage noted or decreased air movement noted. Abdomen: Soft and nontender. Bowel sounds normal in all 4 quadrants. No distention noted. No organomegaly noted. No visible injury noted. Back: No CVA tenderness. Full range of motion noted. Skin: Skin warm and dry. Normal skin color. Normal skin turgor. No rashes/lesions/lacerations noted. Extremities: No lower extremity edema. Extremities exhibit normal range of motion. Extremities nontender. Neuro: Oriented X 3. Cranial nerve exam: II-XII are grossly intact No motor deficit. No sensory deficit. Reflexes normal. Course Course Course Narrative: Assessment and plan. 56-year-old male recent hospitalization for pneumonia and bacteremia patient is on antibiotic of doxycycline and Augmentin. Labs showed improvement of leukocytosis, normal neuro exam, normal head CT. patient improved with IV fluid. Patient was instructed to continue with antibiotic and continue oral hydration and follow up with his PCP. MDM - Dizziness Lab Data Attestation: I reviewed the patient's lab results. Result diagrams: 01/07/22 00:48 01/07/22 00:48 Labs: Lab Results 01/07/22 01/07/22 01/07/22 Range/Units 00:48 00:48 00:48 WBC 9.2 (4.8-10.8) X10*3/uL RBC 5.33 (4.60-5.80) X10*6/uL Hgb 14.4 (14.0-18.0) g/dl Hct 44.1 (42.0-52.0) % MCV 82.7 (80.0-98.0) fL MCH 27.0 (27.0-33.0) pg MCHC 32.7 (31.0-36.0) g/dl RDW 13.8 (11.0-16.0) % Plt Count 325 D (160-400) X10*3/uL MPV 10.6 (9.4-12.4) fL Immature Gran % (Auto) 0.2 (0.0-0.4) % Neut % (Auto) 58.2 (45-73) % Lymph % (Auto) 31.0 (20-40) % [place] % (Auto) 9.0 (2-11) % Eos % (Auto) 1.1 (0-4) % Baso % (Auto) 0.5 (0-2) % Lymph # (Auto) 2.9 (1.2-4.9) X10*3/uL [place] # (Auto) 0.8 (0.1-1.2) X10*3/uL Eos # (Auto) 0.1 (0.0-0.4) X10*3/uL Baso # (Auto) 0.1 (0.0-0.2) X10*3/uL Abs Immat Gran (auto) 0.02 (0.00-0.03) X10*3/uL Absolute Neuts (auto) 5.4 (2.0-8.3) x10*3/uL Absolute Nucleated RBC 0.000 (0.0-0.012) X10*3/uL Nucleated RBC % (auto) 0.0 (0.0-0.2) /100WBC Sodium 139 (135-145) mmol/L Potassium 3.7 (3.3-5.1) mmol/L Chloride 106 (96-108) mmol/L Carbon Dioxide 24 (22-29) mmol/L Anion Gap 13 (12-20) BUN 12 (9-16) mg/dL Creatinine 1.02 (0.5-1.4) mg/dL Estim Creat Clear Calc 103.8 Estimated GFR > 60 Random Glucose 119 H (60-115) mg/dL Calcium 9.1 D (8.4-10.2) mg/dL Total Bilirubin 0.3 (0.0-1.0) mg/dL AST 26 (5-37) U/L ALT 77 H (0-40) U/L Alkaline Phosphatase 95 (39-117) U/L Troponin I High Sens 20.3 (<3.5-35.0) ng/L Total Protein 7.7 (6.5-8.0) g/dL Albumin 4.2 (3.5-5.0) g/dL Imaging Data CT scan - head: Attestation: I personally reviewed and interpreted this imaging study as follows: Radiologist's impression: No acute intracranial pathology. ECG Data Attestation: I personally reviewed and interpreted this ECG as follows: Interpretation: Normal sinus rhythm at 69 beats per minutes, LVH, normal intervals, diffuse T-wave inversion in the lateral leads no change from old EKG. Discharge Plan Discharge Clinical Impression: Dizziness, Generalized weakness Patient Disposition: Home, Self-Care Instructions: Dizziness (ED) Prescriptions: No Action benzonatate 100 mg Capsule 100 mg PO TID PRN (Reason: Cough) Qty: 10 0RF folic acid 1 mg Tablet 1 mg PO DAILY Qty: 30 0RF thiamine mononitrate (vit B1) 100 mg Tablet 100 mg PO DAILY Qty: 30 0RF doxycycline hyclate 100 mg tablet 100 mg PO BID Qty: 20 0RF amoxicillin-pot clavulanate 875-125 mg tablet 1 tab PO Q12H Qty: 20 0RF Referrals: Physician,Unknown J [Primary Care Provider] -
== END 2022-01-07 06:06 | disposition home or self-care (01) ==
PROVIDERS: Emergency Provider Emergency Medicine
DX: R42 Dizziness and giddiness (principal); R53.1 Weakness; J18.9 Pneumonia, unspecified organism; I10 Essential (primary) hypertension
CPT/HCPCS: 36415; 70450; 80053; 84484; 85025; 93005; 96360; 96361; 99284

== ENCOUNTER → 2022-01-08 10:42 | Outpatient (BNVA) | payer OTHER, SELFPAY | PROVIDERS: Visit Provider Internal Medicine Pulmonary Disease | DX: R06.00 Dyspnea, unspecified (principal); Z87.01 Personal history of pneumonia (recurrent) | CPT/HCPCS: 99212 ==

== ENCOUNTER 2022-01-19 12:56 | Outpatient (REF) | payer OTHER, SELFPAY ==
--- NOTE | ~2022-01-19 | CT_ITS ---
EXAMINATION: CT CHEST WITHOUT CONTRAST CLINICAL INFORMATION: Pneumonia. COMPARISON: CT chest 12/22/2021 TECHNIQUE: Multidetector volumetric CT imaging of the chest was done. Axial MIP volume rendering provided. Sagittal and coronal reformatted images were obtained. This CT examination was performed using dose optimization techniques as appropriate, variously including the following: *Automated exposure control *Adjustment of mA and/or kV according to patient size (this includes techniques or standardized protocols for targeted exams where dose is matched to indication/reason for exam; i.e. extremities or head) *Use of iterative reconstruction technique DLP: 214 mGy-cm FINDINGS: WINDOW/DISTRIBUTION CLERK: Unremarkable. LUNGS: The lungs are well expanded with complete resolution of the right apical and posterior right upper lobe infiltrates. There is no residual infiltrate. There is no new infiltrate. There is a 5 mm, focal thickening along the left major fissure (axial image 264/7), stable. A 4 mm nodule in the right lower lobe adjacent to the major fissure (axial image 375/7) is stable. No new nodules are seen. MEDIASTINUM: The thyroid lobes are symmetrical and normal. No abnormal enlarged mediastinal or hilar lymph nodes are seen. The heart size and the great vessels are normal caliber. The central trachea and the bronchi are widely patent. Heart size and the great vessels are normal caliber. There is no pericardial effusion. PLEURA: There is no pleural effusion. No pleural mass or thickening. AXILLAE: There are small bilateral axillary lymph nodes. The chest wall is unremarkable. UPPER ABDOMEN: Visualized liver, spleen, pancreas and bilateral adrenal glands are unremarkable. OSSEOUS STRUCTURES: There is no lytic or sclerotic process. There is moderate ventral spondylosis in the mid and dorsal spine. CT/CT chest wo con IMPRESSION: Interval complete resolution of the right apical and posterior right upper lobe infiltrates. Small pulmonary nodule along the left major fissure and right lower lobe are stable. No new nodules visualized. No abnormal mediastinal or axillary lymphadenopathy. Fleischner guidelines were followed.
== END 2022-01-19 12:57 | disposition home or self-care (01) ==
LOC: HO.CT 12:56
PROVIDERS: Visit Provider Internal Medicine Pulmonary Disease
DX: J18.9 Pneumonia, unspecified organism (principal)
CPT/HCPCS: 71250

== ENCOUNTER 2022-02-24 12:44 | Outpatient (REF) | payer OTHER, SELFPAY ==
--- NOTE | 2022-02-24 13:57 | PFT_ITS ---
INDICATION: Dyspnea. SPIROMETRY: FEV1 to FVC of 89% with an FEV1 of 3.94 L, which is 100% predicted, an FVC of 4.5 L, which is 88% predicted. No significant response to bronchodilators noted. Maximum voluntary ventilation 88% predicted. LUNG VOLUMES: Total lung capacity 93% predicted with an expiratory reserve volume of 44% predicted. DIFFUSION CAPACITY: DLCO 95% predicted. POST-TEST COMMENTS: The patient did his optimal effort. Despite his maximal effort. There were some errors which persisted best efforts were taken into account. INTERPRETATION: No obstructive nor restrictive ventilatory defects identified. No significant response to bronchodilators noted. Normal maximum voluntary ventilation. Normal lung volumes except for decrease in the expiratory reserve volume secondary to an elevated BMI. Diffusion capacity is within normal limits. No clear explanation for his symptoms of dyspnea. Consider a methacholine challenge if the diagnosis of asthma is in the differential. Clinical correlation warranted. MD PAOLA Caceres/HOMER / [id number] MTDD
== END 2022-02-24 12:45 | disposition home or self-care (01) ==
LOC: HO.RESP 12:44
PROVIDERS: Visit Provider Internal Medicine Pulmonary Disease
DX: R06.00 Dyspnea, unspecified (principal); J18.9 Pneumonia, unspecified organism
CPT/HCPCS: 94060; 94727; 94729; 99212

== ENCOUNTER → 2022-04-01 10:46 | Outpatient (BNVA) | payer OTHER, SELFPAY | PROVIDERS: PCP Internal Medicine; Visit Provider Internal Medicine Pulmonary Disease | DX: R06.00 Dyspnea, unspecified (principal) | CPT/HCPCS: 99212 ==

== ENCOUNTER 2022-09-19 15:03 | Emergency (ER) | payer OTHER, SELFPAY ==
--- NOTE | 2022-09-19 | ECG_ITS ---
Test Reason : CX PAIN Blood Pressure : / mmHG Vent. Rate : 082 BPM Atrial Rate : 082 BPM P-R Int : 154 ms QRS Dur : 090 ms QT Int : 372 ms P-R-T Axes : 007 -08 142 degrees QTc Int : 434 ms Normal sinus rhythm Possible Left atrial enlargement Minimal voltage criteria for LVH, may be normal variant ( [place] product ) ST & T wave abnormality, consider lateral ischemia Abnormal ECG When compared with ECG of 07-JAN-2022 00:33, No significant change was found Referred By: Generic ED Physician Electronically Signed By:Mauricio Mejia
--- NOTE | ~2022-09-19 | XR_ITS ---
EXAMINATION: XR CHEST CLINICAL INFORMATION: Chest COMPARISON: 12/23/2019 TECHNIQUE: 2 views of the chest were obtained. FINDINGS: No significant abnormality is noted involving the heart, lungs, mediastinum, bony thorax or soft tissues. Seen on the previous examination the right upper lobe infiltrate has been resolved with mild thickening of the apical pleura XR/XR chest 2V IMPRESSION: Unremarkable examination.
--- NOTE | ~2022-09-19 | CT_ITS ---
EXAMINATION: CT HEAD WITHOUT CONTRAST CLINICAL INFORMATION: Dizziness COMPARISON: Head CT 01/07/2022 TECHNIQUE: Imaging was performed from the skull base to vertex without intravenous administration of contrast. This CT examination was performed using dose optimization techniques as appropriate, variously including the following: *Automated exposure control *Adjustment of mA and/or kV according to patient size (this includes techniques or standardized protocols for targeted exams where dose is matched to indication/reason for exam; i.e. extremities or head) *Use of iterative reconstruction technique Total exam dose length product: 684 mGy-cm FINDINGS: No intra or extra-axial fluid collection, hemorrhage, or mass. No ventriculomegaly. No midline shift or herniation. Basal cisterns are patent. [place]-white matter differentiation is maintained. No territorial encephalomalacia. No significant volume loss. There is no abnormal attenuation within the brain parenchyma. No calvarial fracture or soft tissue abnormality. Mild mucosal thickening of ethmoid air cells. The paranasal sinuses and mastoid air cells otherwise normally aerated. CT/CT head/brain wo IV con IMPRESSION: No acute intracranial pathology.
--- NOTE | 2022-09-19 07:34 | ECG_ITS ---
Test Reason : CHEST PAIN Blood Pressure : / mmHG Vent. Rate : 064 BPM Atrial Rate : 064 BPM P-R Int : 152 ms QRS Dur : 092 ms QT Int : 410 ms P-R-T Axes : 025 -06 148 degrees QTc Int : 422 ms Normal sinus rhythm Minimal voltage criteria for LVH, may be normal variant ( [place] product ) ST & T wave abnormality, consider lateral ischemia Abnormal ECG When compared with ECG of 19-SEP-2022 15:20, No significant change was found Referred By: Abbie Christopher Electronically Signed By:Mauricio Mejia
[2022-09-19 15:09] VITALS: BP 132/82; PULSE 101; RESP 20; TEMP 37; O2SAT 98; BMI 34.5
[2022-09-19 15:38] LABS: Basophils Percent Auto 0.6 % (0-2); Eosinophils Absolute Auto 0.1 X10*3/uL (0.0-0.4); Eosinophils Percent Auto 1.1 % (0-4); Hematocrit 47.4 % (42.0-52.0); Hemoglobin 15.6 g/dl (14.0-18.0); Imm Gran Abs Auto 0.01 X10*3/uL (0.00-0.03); Imm Gran Pct Auto 0.2 % (0.0-0.4); Lymphocytes Absolute Auto 1.9 X10*3/uL (1.2-4.9); Lymphocytes Percent Auto 27.8 % (20-40); MANUAL DIFF FLAG NO; Mean Corpuscular HGB Conc 32.9 g/dl (31.0-36.0); Mean Platelet Volume 10.5 fL (9.4-12.4); Monocytes Absolute Auto 0.6 X10*3/uL (0.1-1.2); Monocytes Percent Auto 8.9 % (2-11); Neutrophils Absolute Auto 4.1 x10*3/uL (2.0-8.3); Neutrophils Percent Auto 61.4 % (45-73); Platelet Count 246 X10*3/uL (160-400); Red Blood Count 5.78 X10*6/uL (4.60-5.80); Red Cell Distribution Width 13.1 % (11.0-16.0); White Blood Count 6.7 X10*3/uL (4.8-10.8)
[2022-09-19 15:43] LABS: INTERNATIONAL NORM RATIO 1.1 (0.9-1.1); Prothrombin Time 13.2 SEC (10.0-13.1)
[2022-09-19 15:56] LABS: Alanine Aminotransferase 45 U/L (0-40); Albumin Level 4.3 g/dL (3.5-5.0); Alkaline Phosphatase 106 U/L (39-117); Anion Gap 14 (12-20); Aspartate Amino Transferase 21 U/L (5-37); Bilirubin Total 0.6 mg/dL (0.0-1.0); Blood Urea Nitrogen 9 mg/dL (9-16); Calcium 9.1 mg/dL (8.4-10.2); Carbon Dioxide 27 mmol/L (22-29); Chloride 106 mmol/L (96-108); Creatinine Clr Calc Pharmacy 116.9; Estimated Glomerular Filt Rate > 60; Glucose Random 87 mg/dL (60-115); Potassium 3.8 mmol/L (3.3-5.1); Sodium 143 mmol/L (135-145); Total Protein 7.3 g/dL (6.5-8.0)
[2022-09-19 16:03] LABS: Troponin-I High Sensitivity 18.5 ng/L (<3.5-35.0)
[2022-09-19 16:12] VITALS: BP 152/96; PULSE 68; RESP 15; O2SAT 97
--- NOTE | 2022-09-19 16:12 | ED.CHESTPAIN ---
HPI - Chest Pain General Chief Complaint: Chest Pain Stated Complaint: high blood pressure/ palpitations/ dizzy Time Seen by Provider: 09/19/22 15:55 Source: patient Mode of arrival: ambulatory Limitations: no limitations History of Present Illness HPI narrative: Patient comes to the emergency room complaining of chest pressure and dizziness since yesterday. Patient states that this moment he feels well. Patient states that he has been very anxious since yesterday, states he has history of anxiety, no known triggers. Patient states that earlier today, his friend took his blood pressure and it was over 200 systolic. Patient became concerned and came to the emergency room. Patient has headache, no chest pain or shortness of breath at this time. Patient complaining of anxiety, requesting medication for anxiety. Patient states that for the last 5 months, he has had multiple appointments with his PCP, seems that they are monitoring his blood pressure but has not been started on any medications. Related Data Previous Rx's Medication Instructions Recorded hydrochlorothiazide 25 mg tablet 25 mg PO DAILY #30 tabs 09/19/22 Allergies Allergy/AdvReac Type Severity Reaction Status Date / Time No Known Allergies Allergy Verified 04/01/22 10:48 Review of Systems Review of Systems: Constitutional : No Weight loss, No Fever, No Chills, No Night Sweats, No Fatigue, No Malaise ENT/Mouth : No Hearing loss, No Ear Pain, No Nasal Congestion, No Sinus Pain, No Hoarseness, No sore throat, No Rhinorrhea, No Swallowing Difficulty Eyes: No Eye Pain, No Swelling, No Redness, No Foreign Body, No Discharge, No Vision Changes Cardiovascular : Complaining of chest pressure, No Chest Pain, No SOB, No Dyspnea on Exertion, No Orthopnea, No Edema, No Palpitations Respiratory : No Cough, No Sputum, No Wheezing, No Smoke Exposure, No Dyspnea Gastrointestinal : No Nausea, No Vomiting, No Diarrhea, No Constipation, No abdominal Pain, No Hematochezia, No Melena Genitourinary : no irregular bleeding, No Dysuria, No Urinary Frequency, No Hematuria, No Urinary Incontinence, No Urgency, No Flank Pain, No Urinary Flow Changes, No Hesitancy Musculoskeletal : No joint pain, No Myalgias, No Joint Swelling Skin : No Skin Lesions, No rash Neuro : No Weakness, No Numbness, No Paresthesias, No Loss of Consciousness, no headache, complaining of dizziness/lightheadedness Psych : No Anxiety/Panic, No Depression, No SI/HI/AH/VH, No Social Issues, Heme/Lymph: No Bruising, No Bleeding,No Lymphadenopathy Endocrine : No Polyuria, No Polydipsia, No Temperature Intolerance [facility] Past Medical History Medical History Hypertension Social History Social History Household Members: None Housing: House Do you presently have visiting nurse or other home services: No Patient Tobacco Use Status: Never used Tobacco Smoked in Last 30 Days: No Use of substances other than those prescribed or required for medical reasons: No Substance Use Type: Crack/Cocaine Advance Directives: No Advance Directives Information Provided: No service: No Current occupational status: unemployed Physical Exam Vital Signs: Vital Signs: Last Vital Signs Temp 98.6 F 09/19/22 15:09 Pulse 79 09/19/22 17:53 Resp 15 09/19/22 16:12 BP 166/98 H 09/19/22 17:53 Pulse Ox 97 09/19/22 16:12 O2 Del Method 09/19/22 16:12 BMI result Body Mass Index 34.5 Const: Other: Appearance: Alert. Oriented X3. No acute distress. Well-appearing Eyes: Pupils equal, round and reactive to light. ENT: Pharynx normal. Neck: Normal inspection. Neck supple. No lymph nodes noted. No crepitus CVS: Normal heart rate and rhythm. Pulses normal. Normal S1 and S2 Respiratory: No respiratory distress. Breath sounds normal. No Wheezing. No rales Abdomen: Soft and nontender. No rigidity. No distention. Skin: Skin warm and dry. Normal skin color. Normal skin turgor. Extremities: No lower extremity edema. No Lacerations. No Rash Neuro: Oriented X 3. No motor deficit. No sensory deficit. Moving all extremities. No slurred speech. CN 2 through 12 grossly intact Psych: calm, cooperative, anxious Course Course Course Narrative: -patient's hematology unremarkable, troponin 18.5, patient's baseline approximately 20 -EKG interpreted by me: Normal sinus rhythm, heart rate 82, no ST segment depression or elevation, T-wave inversion in lead V5 V6 which is old, previously seen on EKG of January of 2022, QTC 434, no acute changes -chest x-ray interpreted by me: No acute abnormalities, no consolidations, pneumothorax or rib fractures. -from triage, head CT was ordered due to history of high blood pressure and dizziness, my interpretation on head CT: No intracranial bleed -patient very anxious, given 2 mg p.o. Ativan per patient's request. Medications Administered Discontinued Medications Generic Name Dose Route Start Last Admin Trade Name Ludwin PRN Reason Stop Dose Admin Aspirin 325 mg 09/19/22 16:11 09/19/22 16:18 Aspirin Enteric Coated 325 Mg Tablet. PO 09/19/22 16:12 325 mg ONCE ONE Administration Lorazepam 2 mg 09/19/22 16:11 09/19/22 16:18 Lorazepam 1 Mg Tablet PO 09/19/22 16:12 2 mg ONCE ONE Administration Medical Decision Making Medical Decision Making MDM Narrative: -patient feeling much better after an Ativan dose p.o.. -troponin and EKG at baseline. COVID test negative. -patient's hypertension likely secondary to anxiety. -patient has had recurrent high blood pressure. Patient states that he has taking his blood pressure at pharmacies, checked by friends, usually above 160. I discussed with the patient he has an appointment with his PCP on September 28. Patient states that he would prefer to start blood pressure 1st, and then being checked on the to see if the blood pressure medication is working. Patient given the 1st dose of hydrochlorothiazide in the ED, patient can clam picker his medications tomorrow in the morning. Since the pharmacy is closed at this time Lab Data 09/19/22 15:29 09/19/22 15:29 Labs: Lab Results 09/19/22 09/19/22 09/19/22 Range/Units 15:29 15:29 15:29 WBC 6.7 (4.8-10.8) X10*3/uL RBC 5.78 (4.60-5.80) X10*6/uL Hgb 15.6 (14.0-18.0) g/dl Hct 47.4 (42.0-52.0) % MCV 82.0 (80.0-98.0) fL MCH 27.0 (27.0-33.0) pg MCHC 32.9 (31.0-36.0) g/dl RDW 13.1 (11.0-16.0) % Plt Count 246 (160-400) X10*3/uL MPV 10.5 (9.4-12.4) fL Immature Gran % (Auto) 0.2 (0.0-0.4) % Neut % (Auto) 61.4 (45-73) % Lymph % (Auto) 27.8 (20-40) % [place] % (Auto) 8.9 (2-11) % Eos % (Auto) 1.1 (0-4) % Baso % (Auto) 0.6 (0-2) % Lymph # (Auto) 1.9 (1.2-4.9) X10*3/uL [place] # (Auto) 0.6 (0.1-1.2) X10*3/uL Eos # (Auto) 0.1 (0.0-0.4) X10*3/uL Baso # (Auto) 0.0 (0.0-0.2) X10*3/uL Abs Immat Gran (auto) 0.01 (0.00-0.03) X10*3/uL Absolute Neuts (auto) 4.1 (2.0-8.3) x10*3/uL Absolute Nucleated RBC 0.000 (0.0-0.012) X10*3/uL Nucleated RBC % (auto) 0.0 (0.0-0.2) /100WBC PT (10.0-13.1) SEC INR (0.9-1.1) Sodium 143 (135-145) mmol/L Potassium 3.8 (3.3-5.1) mmol/L Chloride 106 (96-108) mmol/L Carbon Dioxide 27 (22-29) mmol/L Anion Gap 14 (12-20) BUN 9 (9-16) mg/dL Creatinine 0.91 (0.5-1.4) mg/dL Estim Creat Clear Calc 116.9 Estimated GFR > 60 Random Glucose 87 (60-115) mg/dL Calcium 9.1 (8.4-10.2) mg/dL Total Bilirubin 0.6 (0.0-1.0) mg/dL AST 21 (5-37) U/L ALT 45 H (0-40) U/L Alkaline Phosphatase 106 (39-117) U/L Troponin I High Sens 18.5 (<3.5-35.0) ng/L Total Protein 7.3 (6.5-8.0) g/dL Albumin 4.3 (3.5-5.0) g/dL Influenza Type A (PCR) (Negative) Influenza Type B (PCR) (Negative) RSV RNA Qual (PCR) (Negative) SARS-CoV-2 RNA (RT-PCR) (Negative) 09/19/22 09/19/22 Range/Units 15:29 15:29 WBC (4.8-10.8) X10*3/uL RBC (4.60-5.80) X10*6/uL Hgb (14.0-18.0) g/dl Hct (42.0-52.0) % MCV (80.0-98.0) fL MCH (27.0-33.0) pg MCHC (31.0-36.0) g/dl RDW (11.0-16.0) % Plt Count (160-400) X10*3/uL MPV (9.4-12.4) fL Immature Gran % (Auto) (0.0-0.4) % Neut % (Auto) (45-73) % Lymph % (Auto) (20-40) % [place] % (Auto) (2-11) % Eos % (Auto) (0-4) % Baso % (Auto) (0-2) % Lymph # (Auto) (1.2-4.9) X10*3/uL [place] # (Auto) (0.1-1.2) X10*3/uL Eos # (Auto) (0.0-0.4) X10*3/uL Baso # (Auto) (0.0-0.2) X10*3/uL Abs Immat Gran (auto) (0.00-0.03) X10*3/uL Absolute Neuts (auto) (2.0-8.3) x10*3/uL Absolute Nucleated RBC (0.0-0.012) X10*3/uL Nucleated RBC % (auto) (0.0-0.2) /100WBC PT 13.2 H (10.0-13.1) SEC INR 1.1 (0.9-1.1) Sodium (135-145) mmol/L Potassium (3.3-5.1) mmol/L Chloride (96-108) mmol/L Carbon Dioxide (22-29) mmol/L Anion Gap (12-20) BUN (9-16) mg/dL Creatinine (0.5-1.4) mg/dL Estim Creat Clear Calc Estimated GFR Random Glucose (60-115) mg/dL Calcium (8.4-10.2) mg/dL Total Bilirubin (0.0-1.0) mg/dL AST (5-37) U/L ALT (0-40) U/L Alkaline Phosphatase (39-117) U/L Troponin I High Sens (<3.5-35.0) ng/L Total Protein (6.5-8.0) g/dL Albumin (3.5-5.0) g/dL Influenza Type A (PCR) NEGATIVE (Negative) Influenza Type B (PCR) NEGATIVE (Negative) RSV RNA Qual (PCR) NEGATIVE (Negative) SARS-CoV-2 RNA (RT-PCR) NEGATIVE (Negative) Discharge Plan Discharge Clinical Impression: Atypical chest pain, Anxiety, Hypertension Patient Disposition: Home, Self-Care Instructions: Chest Pain (DC), Anxiety (ED) Additional Instructions: Please follow-up with your primary care physician tomorrow. If you have any worsening or new symptoms, please return to the emergency room or call 911 Prescriptions: New hydrochlorothiazide 25 mg tablet 25 mg PO DAILY Qty: 30 0RF
[2022-09-19] MEDS: Aspirin Enteric Coated 325 MG TABLET.DR PO (16:18)
[2022-09-19] MEDS: LORazepam 1 MG TABLET 2 MG PO (16:18)
[2022-09-19 16:19] LABS: Influenza A PCR NEGATIVE (Negative); Influenza B PCR NEGATIVE (Negative); Resp Syncy Virus RNA Qual PCR NEGATIVE (Negative); SARS COV2 PCR INHOUSE NEGATIVE (Negative)
[2022-09-19 17:50] VITALS: BP 169/86; PULSE 71
[2022-09-19 17:53] VITALS: BP 166/98; BP 167/95; BP 182/85; PULSE 69; PULSE 79
[2022-09-19 19:38] VITALS: BP 174/98; PULSE 87; RESP 18; TEMP 36.6; O2SAT 99
[2022-09-19] MEDS: hydroCHLOROthiazide 25 MG TABLET PO (19:41)
== END 2022-09-19 19:50 | disposition home or self-care (01) ==
PROVIDERS: Emergency Provider Emergency Medicine; PCP Internal Medicine
DX: R07.89 Other chest pain (principal); R42 Dizziness and giddiness; F41.1 Generalized anxiety disorder; R51.9 Headache, unspecified; F43.0 Acute stress reaction; I10 Essential (primary) hypertension; Z20.822 Contact with and (suspected) exposure to COVID-19; Z20.828 Contact with and (suspected) exposure to other viral communicable diseases; Z79.899 Other long term (current) drug therapy
CPT/HCPCS: 0241U; 36415; 70450; 71046; 80053; 84484; 85025; 85610; 93005; 99284

== ENCOUNTER → 2022-09-21 14:59 | Outpatient (BNVA) | payer OTHER, SELFPAY | PROVIDERS: PCP Internal Medicine; Visit Provider Internal Medicine Pulmonary Disease | DX: G47.33 Obstructive sleep apnea (adult) (pediatric) (principal); G47.00 Insomnia, unspecified; R06.00 Dyspnea, unspecified | CPT/HCPCS: 99212 ==

== ENCOUNTER 2022-09-24 15:12 | Inpatient (IN) | payer OTHER, SELFPAY ==
--- NOTE | ~2022-09-24 | XR_ITS ---
EXAMINATION: XR CHEST CLINICAL INFORMATION: Right facial droop for 2 to 3 weeks. COMPARISON: 09/19/2022 chest radiographs. TECHNIQUE: 2 views of the chest were obtained. FINDINGS: No significant abnormality is noted involving the heart, lungs, mediastinum, bony thorax or soft tissues. XR/XR chest 2V IMPRESSION: No acute cardiopulmonary process.
--- NOTE | ~2022-09-24 | US_ITS ---
EXAMINATION: US EXTRACRANIAL CAROTID DUPLEX, BILATERAL CLINICAL INFORMATION: Question CVA COMPARISON: None TECHNIQUE: Real-time ultrasound and Doppler techniques (integrating B-mode 2-D vascular images, Doppler spectral analysis and color-flow Doppler imaging) were utilized to interrogate the extracranial carotid arteries, the vertebral arteries and proximal subclavian arteries bilaterally. The degree of stenosis is determined by criteria similar to NASCET. FINDINGS: Right Side: 1. There is no visualized atherosclerotic plaque seen in the bifurcation/proximal ICA region. 2. The common carotid artery PSV proximally is 119 cm/s and distally 131 cm/s. 3. The proximal internal carotid artery velocities are 97 cm/s systolic and 24 cm/s diastolic. 4. The proximal external carotid artery PSV is 158 cm/s. 5. The vertebral artery shows antegrade flow. 6. The subclavian artery waveforms are normal. Left Side: 1. There is no visualized atherosclerotic plaque seen in the bifurcation/proximal ICA region. 2. The common carotid artery PSV proximally is 143 cm/s and distally 117 cm/s. 3. The proximal internal carotid artery velocities are 101 cm/s systolic and 23 cm/s diastolic. 4. The proximal external carotid artery PSV is 131 cm/s. 5. The vertebral artery shows antegrade flow. 6. The subclavian artery waveforms are normal. Incidentally there are relatively enlarged lymph nodes adjacent to the carotid bulb bilaterally. The lymph node on the right measures 2.1 x 0.9 cm and the largest on the left measures 1.5 x 0.8 cm. Significance is uncertain. US/US carotid duplex BI IMPRESSION: 1. RIGHT: Normal right internal carotid artery without atherosclerotic plaque or hemodynamically significant stenosis. 2. LEFT: Normal left internal carotid artery without atherosclerotic plaque or hemodynamically significant stenosis. 3. Prominent bilateral cervical lymph nodes adjacent to the carotid bulbs of uncertain clinical significance.
--- NOTE | ~2022-09-24 | CT_ITS ---
EXAMINATION: CT HEAD WITHOUT CONTRAST CLINICAL INFORMATION: Right facial drop. COMPARISON: CT head 09/19/2022. TECHNIQUE: Contiguous axial imaging was performed from the skull base to vertex without intravenous administration of contrast. This CT examination was performed using dose optimization techniques as appropriate, variously including the following: *Automated exposure control *Adjustment of mA and/or kV according to patient size (this includes techniques or standardized protocols for targeted exams where dose is matched to indication/reason for exam; i.e. extremities or head) *Use of iterative reconstruction technique DLP: 604 mGy-cm FINDINGS: There is no evidence of acute intracranial hemorrhage or edematous territorial infarction. There is no abnormal attenuation within the brain parenchyma. Armenta-white matter differentiation is preserved. The ventricles are normal in size and configuration. No evidence for obstructive hydrocephalus. No abnormal mass effect or midline shift. No extra-axial fluid collections. No acute soft tissue or osseous abnormalities. The mastoid air cells and paranasal sinuses are clear. Degenerative changes of the left temporomandibular joint. CT/CT head/brain wo IV con IMPRESSION: No evidence of acute intracranial hemorrhage or edematous territorial infarction.
[2022-09-24 15:17] VITALS: BP 180/85; PULSE 71; RESP 18; TEMP 36.4; O2SAT 99; BMI 32.8
--- NOTE | 2022-09-24 15:19 | ECG_ITS ---
Test Reason : rt sided facial droop 3x weeks Blood Pressure : / mmHG Vent. Rate : 085 BPM Atrial Rate : 085 BPM P-R Int : 158 ms QRS Dur : 090 ms QT Int : 396 ms P-R-T Axes : 003 -02 139 degrees QTc Int : 471 ms Normal sinus rhythm Possible Left atrial enlargement Minimal voltage criteria for LVH, may be normal variant ( Nabil product ) ST & T wave abnormality, consider lateral ischemia Prolonged QT Abnormal ECG When compared with ECG of 19-SEP-2022 16:40, No significant change was found Referred By: Kelly Mckeon Electronically Signed By:Mauricio Mejia
--- NOTE | 2022-09-24 15:22 | ED_ITS ---
HPI - Neuro Symptoms/Deficit General Chief Complaint: Weakness <FERNANDO Bustamante - Last Filed: 09/24/22 15:29> Stated Complaint: Facial drooping/slurred speech <FERNANDO Bustamante - Last Filed: 09/24/22 15:29> Time Seen by Provider: 09/24/22 19:44 <FERNANDO Bustamante - Last Filed: 09/24/22 15:29> Source: patient, family (Daughter acting as medical office technician) and RN notes reviewed <Brian Diez - Last Filed: 09/25/22 00:01> Mode of arrival: ambulatory <Brian Diez - Last Filed: 09/25/22 00:01> Limitations: language barrier <Brian Diez - Last Filed: 09/25/22 00:01> History of Present Illness HPI Narrative: This 57-year-old male past medical history significant for obstructive sleep apnea, obesity, hyperlipidemia presents for evaluation of ?crooked face. ? Patient reports that he has not been feeling well since last week. He has had intermittent dizziness and headaches. He was seen here 4 days ago for anxiety symptoms. She had a negative workup that included a CT scan the brain, improved with Ativan and was discharged home. He reports his symptoms worsen so the following day he went to another local hospital, [facility] and was again discharged home The patient's daughter states that 2 days ago the patient developed ?slurred speech and cooking face. ? <Brian Diez - Last Filed: 09/25/22 00:01> Related Data Home Medications: Home Medications Medication Instructions Recorded Confirmed atorvastatin 10 mg tablet 10 mg PO BEDTIME 09/21/22 09/24/22 budesonide-formoterol HFA 160 2 puff inhalation BID 09/24/22 09/24/22 mcg-4.5 mcg/actuation aerosol inhaler (Symbicort) Previous Rx's Medication Instructions Recorded hydrochlorothiazide 25 mg tablet 25 mg PO DAILY #30 tabs 09/19/22 trazodone 50 mg tablet 50 mg PO BEDTIME 30 days #30 tabs 09/21/22 <FERNANDO Bustamante - Last Filed: 09/24/22 15:29> Allergies/Adverse Reactions: Allergies Allergy/AdvReac Type Severity Reaction Status Date / Time No Known Allergies Allergy Verified 09/24/22 15:29 <FERNANDO Bustamante - Last Filed: 09/24/22 15:29> Review of Systems Constitutional: Constitutional: Reports as per HPI, Denies chills, Denies fatigue and Denies fever(s) <Brian Diez - Last Filed: 09/25/22 00:01> ENT: Denies sore throat <Brian Diez - Last Filed: 09/25/22 00:01> Cardiovascular: Cardiovascular: Denies chest pain and Reports palpitations <Brian Diez - Last Filed: 09/25/22 00:01> Respiratory: Respiratory: Denies cough <Brian Diez - Last Filed: 09/25/22 00:01> Gastrointestinal: Gastrointestinal: Denies constipation, Denies diarrhea and Denies hematemesis <Brian Diez - Last Filed: 09/25/22 00:01> Genitourinary: Genitourinary: Denies difficulty urinating and Denies dysuria <Brian Diez - Last Filed: 09/25/22 00:01> Musculoskeletal: Musculoskeletal: Denies back pain, Denies myalgias and Denies arthralgias <Brian Diez - Last Filed: 09/25/22 00:01> Neurologic: Reports Abnormal speech present <Brian Diez - Last Filed: 09/25/22 00:01> Comments: Right lower facial droop <Brian Diez - Last Filed: 09/25/22 00:01> Endocrine: Endocrine: Denies fatigue and Reports palpitations <Brian Diez - Last Filed: 09/25/22 00:01> [facility] Past Medical History Medical History: Medical History Hypertension <FERNANDO Bustamante - Last Filed: 09/24/22 15:29> Social History Social History: Social History Household Members: None Housing: House Do you presently have visiting nurse or other home services: No Patient Tobacco Use Status: Never used Tobacco Substance Use Type: Crack/Cocaine Advance Directives: No Advance Directives Information Provided: No service: No Current occupational status: unemployed <FERNANDO Bustamante - Last Filed: 09/24/22 15:29> Physical Exam Vital Signs: Vital Signs: Last Vital Signs Temp 98 F 09/24/22 23:44 Pulse 58 09/24/22 23:44 Resp 16 09/24/22 23:44 BP 118/71 09/24/22 23:44 Pulse Ox 96 09/24/22 23:44 O2 Del Method 09/24/22 23:44 BMI result Body Mass Index 32.8 <FERNANDO Bustamante - Last Filed: 09/24/22 15:29> Vital Signs: Last Vital Signs Temp 98 F 09/24/22 23:44 Pulse 58 09/24/22 23:44 Resp 16 09/24/22 23:44 BP 118/71 09/24/22 23:44 Pulse Ox 96 09/24/22 23:44 O2 Del Method 09/24/22 23:44 BMI result Body Mass Index 32.8 <Brian Diez - Last Filed: 09/25/22 00:01> Const: General: cooperative, healthy appearing, comfortable, no acute distres s, alert, awake and Physically active <Brian Diez - Last Filed: 09/25/22 00:01> Nutritional Appearance: thin <Brian Diez - Last Filed: 09/25/22 00:01> Orientation/consciousness: patient oriented x3 <Brian Diez - Last Filed: 09/25/22 00:01> Limitations: no limitations <Brian Diez - Last Filed: 09/25/22 00:01> HEENT: Head: Yes normocephalic and Yes atraumatic <Brian Diez - Last Filed: 09/25/22 00:01> Face and sinus: Yes face symmetric <Brian Diez - Last Filed: 09/25/22 00:01> Mouth: Normal oral and palatal mucosa present and tongue normal <Brian Diez - Last Filed: 09/25/22 00:01> Teeth and gingiva: dentition normal <Brian Diez - Last Filed: 09/25/22 00:01> Throat: Yes posterior oropharynx normal ( without erythema, tonsillar exudates or edema), No peritonsillar mass, No uvula laterally displaced and No uvular edema < Last Filed: 09/25/22 00:01> Eyes: Eyelids: Yes eyelids normal < Last Filed: 09/25/22 00:01> Conjunctivae: conjunctivae normal < Last Filed: 09/25/22 00:01> Sclerae: sclerae normal < Last Filed: 09/25/22 00:01> Corneas: corneas normal < Last Filed: 09/25/22 00:01> Pupils: Equal, round and reactive pupils present and Pupil accommodation reflex normal < Last Filed: 09/25/22 00:01> EOM: EOMs intact bilaterally < Last Filed: 09/25/22 00:01> Neck: Neck: Yes normal visual inspection, Yes full ROM, No no meningeal signs, Yes supple and No lymphadenopathy < Last Filed: 09/25/22 00:01> Chest: Chest palpation & inspection: normal inspection of the chest, normal palpation of entire chest wall and no crepitus < Last Filed: 09/25/22 00:01> Resp: Effort & Inspection: normal respiratory effort and able to speak in complete sentences < Last Filed: 09/25/22 00:01> Auscultation: clear to auscultation bilaterally < Last Filed: 09/25/22 00:01> Cardio: Rate: regular rate < Last Filed: 09/25/22 00:01> Rhythm: regular rhythm < Last Filed: 09/25/22 00:01> Skin: General skin exam: no rashes or lesions noted < Last Filed: 09/25/22 00:01> Neuro: Other: Slight right facial droop noticeable at the corner of the mouth < Last Filed: 09/25/22 00:01> General: patient oriented x3 and No no meningeal signs <Brian Diez - Last Filed: 09/25/22 00:01> Cranial nerves: Yes Equal, round and reactive pupils present <Brian Diez - Last Filed: 09/25/22 00:01> Cognition (Neuro): normal cognition <Brian Diez Last Filed: 09/25/22 00:01> Speech: Abnormal speech present slurred Details: slurred <Brian Diez - Last Filed: 09/25/22 00:01> Gait exam (Neuro): Normal gait present and not ataxic <Brian Catalan Last Filed: 09/25/22 00:01> Motor exam (neuro): 5/5 motor strength present throughout, Pronator motor function not present, no tremor noted, Motor fasciculations not present and Normal motor muscle tone present throughout <Brian Diez Last Filed: 09/25/22 00:01> Course Course Course Narrative: RME-15:35pm - 57yoM with a PMHx of insomnia, strep this sleep apnea, REED, morbid obesity who is presenting to the ER with complaints of generalized weakness, fatigue, malaise, headache, dizziness, right facial droop and slurred speech for the past 2-3 weeks. Reports that his friend told him 2-3 weeks ago and he did not believe them. He reports that he was seen here on 09/19/2022 for dizziness and chest pressure although reports that he did not tell them at that time that he felt like his face was droopy and he had a slurred speech. He reports he did have a CT scan and his CT scan was negative therefore he was sent home with hydrochlorothiazide reports he is taking as prescribed. On exam he does have a right-sided facial droop and slurred speech. Questioning mild left-sided pronator drift. Otherwise the rest of the exam is within normal limits. 5/5 strength to all 4 extremities. Sensation intact. Normal steady g ait. NIH SS score would be 2 although patient would not be a tPA candidate as his symptoms started 2-3 weeks ago. Plan: Labs, EKG, chest x-ray, CT scan of brain, COVID/RSV/flu swab. Patient sent back to the waiting room to be evaluated in the ED. <FERNANDO Bustamante - Last Filed: 09/24/22 15:29> Reevaluation(s) Reevaluation #1: Patient presenting with vague symptoms of dizziness, headache, slurred speech and facial droop. It is difficult to ascertain when the patient's symptoms 1st started. The patient's daughter initially stated that it was 2 days ago, she then states that it worsened 2 days ago. It sounds as though there was no facial droop until 2 days ago the patient did have some difficulty with slurred speech as far back as last week. His anion stroke score is 2, 1.4 history I point for mild dysarthria. He is well outside the window for tPA. A considered CT angio of the head and neck of the patient is also well outside the window for neurovascular treatment if he does have large vessel occlusion and I have a very low suspicion for large vessel occlusion as the patient appears so well. I discussed with the hospitalist, the patient will be admitted for further workup including MRI of the brain and carotid ultrasound. He was medicated with aspirin <Brian Diez - Last Filed: 09/25/22 00:01> Time: :17 <Brian Diez - Last Filed: 09/25/22 00:01> Medications Administered Generic Name Dose Route Start Last Admin Trade Name Freq PRN Reason Stop Dose Admin Atorvastatin Calcium 40 mg 09/24/22 20:45 09/24/22 21:44 Atorvastatin Calcium 40 Mg Tablet PO 40 mg DAILY SELMA Administration Enoxaparin Sodium 40 mg 09/24/22 21:00 09/24/22 21:44 Enoxaparin Sodium 40 Mg/0.4 Ml Syringe SUBCUT 40 mg Q24H SELMA Administration Discontinued Medications Generic Name Dose Route Start Last Admin Trade Name Freq PRN Reason Stop Dose Admin Acetaminophen 650 mg 09/24/22 19:57 09/24/22 20:03 Acetaminophen 325 Mg Tablet PO 09/24/22 19:58 650 mg ONCE ONE Administration Aspirin 325 mg 09/24/22 19:57 09/24/22 20:04 Aspirin 325 Mg Tablet PO 09/24/22 19:58 325 mg ONCE ONE Administration <FERNANOD Bustamante - Last Filed: 09/24/22 15:29> Medications Administered Generic Name Dose Route Start Last Admin Trade Name Freq PRN Reason Stop Dose Admin Atorvastatin Calcium 40 mg 09/24/22 20:45 09/24/22 21:44 Atorvastatin Calcium 40 Mg Tablet PO 40 mg DAILY SELMA Administration Enoxaparin Sodium 40 mg 09/24/22 21:00 09/24/22 21:44 Enoxaparin Sodium 40 Mg/0.4 Ml Syringe SUBCUT 40 mg Q24H SELMA Administration Discontinued Medications Generic Name Dose Route Start Last Admin Trade Name Ludwin PRN Reason Stop Dose Admin Acetaminophen 650 mg 09/24/22 19:57 09/24/22 20:03 Acetaminophen 325 Mg Tablet PO 09/24/22 19:58 650 mg ONCE ONE Administration Aspirin 325 mg 09/24/22 19:57 09/24/22 20:04 Aspirin 325 Mg Tablet PO 09/24/22 19:58 325 mg ONCE ONE Administration <Brian Diez - Last Filed: 09/25/22 00:01> Medical Decision Making Medical Decision Making [facility] Narrative: The patient's labs are reassuring, his vital signs are stable. The patient's CT scan of the head without contrast is unremarkable. This is reassuring, as if the patient's symptoms started last week he should have objective findings on CT. Were given that the facial droop seems to have started 2 days ago in the dysarthria worsened 2 days ago, the patient will be admitted for further workup. <Brian Diez - Last Filed: 09/25/22 00:01> Differential Diagnosis TIA CVA Anxiety Facial droop Hernandez's palsy Facial palsy <Brian Diez - Last Filed: 09/25/22 00:01> Consult Healthcare Provider Management of the patient was discussed with: Hospitalist <Brian Diez - Last Filed: 09/25/22 00:01> Lab Data [facility] Lab Attestation statement: I reviewed the patient's lab results. <Brian Diez - Last Filed: 09/25/22 00:01> Result Diagrams: 09/24/22 16:07 09/24/22 16:07 <FERNANDO Bustamante - Last Filed: 09/24/22 15:29> Labs: Lab Results 09/24/22 09/24/22 09/24/22 Range/Units 16:03 16:07 16:07 WBC 9.2 (4.8-10.8) X10*3/uL RBC 5.72 (4.60-5.80) X10*6/uL Hgb 16.0 (14.0-18.0) g/dl Hct 47.6 (42.0-52.0) % MCV 83.2 (80.0-98.0) fL MCH 28.0 (27.0-33.0) pg MCHC 33.6 (31.0-36.0) g/dl RDW 12.9 (11.0-16.0) % Plt Count 238 (160-400) X10*3/uL MPV 11.0 (9.4-12.4) fL Immature Gran % (Auto) 0.1 (0.0-0.4) % Neut % (Auto) 63.7 (45-73) % Lymph % (Auto) 25.7 (20-40) % [place] % (Auto) 8.8 (2-11) % Eos % (Auto) 1.0 (0-4) % Baso % (Auto) 0.7 (0-2) % Lymph # (Auto) 2.4 (1.2-4.9) X10*3/uL [place] # (Auto) 0.8 (0.1-1.2) X10*3/uL Eos # (Auto) 0.1 (0.0-0.4) X10*3/uL Baso # (Auto) 0.1 (0.0-0.2) X10*3/uL Abs Immat Gran (auto) 0.01 (0.00-0.03) X10*3/uL Absolute Neuts (auto) 5.9 (2.0-8.3) x10*3/uL Absolute Nucleated RBC 0.000 (0.0-0.012) X10*3/uL Nucleated RBC % (auto) 0.0 (0.0-0.2) /100WBC PT 11.9 (10.0-13.1) SEC INR 1.0 (0.9-1.1) Sodium (135-145) mmol/L Potassium (3.3-5.1) mmol/L Chloride (96-108) mmol/L Carbon Dioxide (22-29) mmol/L Anion Gap (12-20) BUN (9-16) mg/dL Creatinine (0.5-1.4) mg/dL Estim Creat Clear Calc Estimated GFR Random Glucose (60-115) mg/dL Calcium (8.4-10.2) mg/dL Magnesium (1.6-2.6) mg/dL Total Bilirubin (0.0-1.0) mg/dL AST (5-37) U/L ALT (0-40) U/L Alkaline Phosphatase (39-117) U/L Troponin I High Sens (<3.5-35.0) ng/L Total Protein (6.5-8.0) g/dL Albumin (3.5-5.0) g/dL Triglycerides mg/dL Cholesterol mg/dL LDL Cholesterol, Calc mg/dl HDL Cholesterol mg/dL Urine Color Urine Appearance Urine pH (5.0-9.0) Ur Specific [place] (1.005-1.025) Urine Protein (Neg-Trace) mg/dL Urine Glucose (UA) (Negative) mg/dL Urine Ketones (Negative) mg/dL Urine Blood (Negative) Urine Nitrite (Negative) Ur Leukocyte Esterase (Negative) Urine RBC (0-2) /HPF Urine WBC (0-5) /HPF Ur Squamous Epith Cells (0-2) /HPF Urine Bacteria (None Seen) Hyaline Casts (0-2) /LPF Influenza Type A (PCR) NEGATIVE (Negative) Influenza Type B (PCR) NEGATIVE (Negative) RSV RNA Qual (PCR) NEGATIVE (Negative) SARS-CoV-2 RNA (RT-PCR) NEGATIVE (Negative) 09/24/22 09/24/22 09/24/22 Range/Units 16:07 16:07 16:11 WBC (4.8-10.8) X10*3/uL RBC (4.60-5.80) X10*6/uL Hgb (14.0-18.0) g/dl Hct (42.0-52.0) % MCV (80.0-98.0) fL MCH (27.0-33.0) pg MCHC (31.0-36.0) g/dl RDW (11.0-16.0) % Plt Count (160-400) X10*3/uL MPV (9.4-12.4) fL Immature Gran % (Auto) (0.0-0.4) % Neut % (Auto) (45-73) % Lymph % (Auto) (20-40) % [place] % (Auto) (2-11) % Eos % (Auto) (0-4) % Baso % (Auto) (0-2) % Lymph # (Auto) (1.2-4.9) X10*3/uL [place] # (Auto) (0.1-1.2) X10*3/uL Eos # (Auto) (0.0-0.4) X10*3/uL Baso # (Auto) (0.0-0.2) X10*3/uL Abs Immat Gran (auto) (0.00-0.03) X10*3/uL Absolute Neuts (auto) (2.0-8.3) x10*3/uL Absolute Nucleated RBC (0.0-0.012) X10*3/uL Nucleated RBC % (auto) (0.0-0.2) /100WBC PT (10.0-13.1) SEC INR (0.9-1.1) Sodium 143 (135-145) mmol/L Potassium 3.5 (3.3-5.1) mmol/L Chloride 100 (96-108) mmol/L Carbon Dioxide 31 H (22-29) mmol/L Anion Gap 16 (12-20) BUN 10 (9-16) mg/dL Creatinine 0.96 (0.5-1.4) mg/dL Estim Creat Clear Calc 107.9 Estimated GFR > 60 Random Glucose 109 (60-115) mg/dL Calcium 9.4 (8.4-10.2) mg/dL Magnesium 2.2 (1.6-2.6) mg/dL Total Bilirubin 0.3 (0.0-1.0) mg/dL AST 20 (5-37) U/L ALT 46 H (0-40) U/L Alkaline Phosphatase 107 (39-117) U/L Troponin I High Sens 14.9 (<3.5-35.0) ng/L Total Protein 7.6 (6.5-8.0) g/dL Albumin 4.5 (3.5-5.0) g/dL Triglycerides 284 mg/dL Cholesterol 164 mg/dL LDL Cholesterol, Calc 71 mg/dl HDL Cholesterol 37 mg/dL Urine Color Yellow Urine Appearance Clear Urine pH 5.0 (5.0-9.0) Ur Specific [place] 1.020 (1.005-1.025) Urine Protein Negative (Neg-Trace) mg/dL Urine Glucose (UA) Negative (Negative) mg/dL Urine Ketones Negative (Negative) mg/dL Urine Blood Trace H (Negative) Urine Nitrite Negative (Negative) Ur Leukocyte Esterase Negative (Negative) Urine RBC 0-2 (0-2) /HPF Urine WBC 0-5 (0-5) /HPF Ur Squamous Epith Cells 0-2 (0-2) /HPF Urine Bacteria None Seen (None Seen) Hyaline Casts 0-2 (0-2) /LPF Influenza Type A (PCR) (Negative) Influenza Type B (PCR) (Negative) RSV RNA Qual (PCR) (Negative) SARS-CoV-2 RNA (RT-PCR) (Negative) <FERNANDO Bustamante - Last Filed: 09/24/22 15:29> Lab Results 09/24/22 09/24/22 09/24/22 Range/Units 16:03 16:07 16:07 WBC 9.2 (4.8-10.8) X10*3/uL RBC 5.72 (4.60-5.80) X10*6/uL Hgb 16.0 (14.0-18.0) g/dl Hct 47.6 (42.0-52.0) % MCV 83.2 (80.0-98.0) fL MCH 28.0 (27.0-33.0) pg MCHC 33.6 (31.0-36.0) g/dl RDW 12.9 (11.0-16.0) % Plt Count 238 (160-400) X10*3/uL MPV 11.0 (9.4-12.4) fL Immature Gran % (Auto) 0.1 (0.0-0.4) % Neut % (Auto) 63.7 (45-73) % Lymph % (Auto) 25.7 (20-40) % [place] % (Auto) 8.8 (2-11) % Eos % (Auto) 1.0 (0-4) % Baso % (Auto) 0.7 (0-2) % Lymph # (Auto) 2.4 (1.2-4.9) X10*3/uL [place] # (Auto) 0.8 (0.1-1.2) X10*3/uL Eos # (Auto) 0.1 (0.0-0.4) X10*3/uL Baso # (Auto) 0.1 (0.0-0.2) X10*3/uL Abs Immat Gran (auto) 0.01 (0.00-0.03) X10*3/uL Absolute Neuts (auto) 5.9 (2.0-8.3) x10*3/uL Absolute Nucleated RBC 0.000 (0.0-0.012) X10*3/uL Nucleated RBC % (auto) 0.0 (0.0-0.2) /100WBC PT 11.9 (10.0-13.1) SEC INR 1.0 (0.9-1.1) Sodium (135-145) mmol/L Potassium (3.3-5.1) mmol/L Chloride (96-108) mmol/L Carbon Dioxide (22-29) mmol/L Anion Gap (12-20) BUN (9-16) mg/dL Creatinine (0.5-1.4) mg/dL Estim Creat Clear Calc Estimated GFR Random Glucose (60-115) mg/dL Calcium (8.4-10.2) mg/dL Magnesium (1.6-2.6) mg/dL Total Bilirubin (0.0-1.0) mg/dL AST (5-37) U/L ALT (0-40) U/L Alkaline Phosphatase (39-117) U/L Troponin I High Sens (<3.5-35.0) ng/L Total Protein (6.5-8.0) g/dL Albumin (3.5-5.0) g/dL Triglycerides mg/dL Cholesterol mg/dL LDL Cholesterol, Calc mg/dl HDL Cholesterol mg/dL Urine Color Urine Appearance Urine pH (5.0-9.0) Ur Specific [place] (1.005-1.025) Urine Protein (Neg-Trace) mg/dL Urine Glucose (UA) (Negative) mg/dL Urine Ketones (Negative) mg/dL Urine Blood (Negative) Urine Nitrite (Negative) Ur Leukocyte Esterase (Negative) Urine RBC (0-2) /HPF Urine WBC (0-5) /HPF Ur Squamous Epith Cells (0-2) /HPF Urine Bacteria (None Seen) Hyaline Casts (0-2) /LPF Influenza Type A (PCR) NEGATIVE (Negative) Influenza Type B (PCR) NEGATIVE (Negative) RSV RNA Qual (PCR) NEGATIVE (Negative) SARS-CoV-2 RNA (RT-PCR) NEGATIVE (Negative) 09/24/22 09/24/22 09/24/22 Range/Units 16:07 16:07 16:11 WBC (4.8-10.8) X10*3/uL RBC (4.60-5.80) X10*6/uL Hgb (14.0-18.0) g/dl Hct (42.0-52.0) % MCV (80.0-98.0) fL MCH (27.0-33.0) pg MCHC (31.0-36.0) g/dl RDW (11.0-16.0) % Plt Count (160-400) X10*3/uL MPV (9.4-12.4) fL Immature Gran % (Auto) (0.0-0.4) % Neut % (Auto) (45-73) % Lymph % (Auto) (20-40) % [place] % (Auto) (2-11) % Eos % (Auto) (0-4) % Baso % (Auto) (0-2) % Lymph # (Auto) (1.2-4.9) X10*3/uL [place] # (Auto) (0.1-1.2) X10*3/uL Eos # (Auto) (0.0-0.4) X10*3/uL Baso # (Auto) (0.0-0.2) X10*3/uL Abs Immat Gran (auto) (0.00-0.03) X10*3/uL Absolute Neuts (auto) (2.0-8.3) x10*3/uL Absolute Nucleated RBC (0.0-0.012) X10*3/uL Nucleated RBC % (auto) (0.0-0.2) /100WBC PT (10.0-13.1) SEC INR (0.9-1.1) Sodium 143 (135-145) mmol/L Potassium 3.5 (3.3-5.1) mmol/L Chloride 100 (96-108) mmol/L Carbon Dioxide 31 H (22-29) mmol/L Anion Gap 16 (12-20) BUN 10 (9-16) mg/dL Creatinine 0.96 (0.5-1.4) mg/dL Estim Creat Clear Calc 107.9 Estimated GFR > 60 Random Glucose 109 (60-115) mg/dL Calcium 9.4 (8.4-10.2) mg/dL Magnesium 2.2 (1.6-2.6) mg/dL Total Bilirubin 0.3 (0.0-1.0) mg/dL AST 20 (5-37) U/L ALT 46 H (0-40) U/L Alkaline Phosphatase 107 (39-117) U/L Troponin I High Sens 14.9 (<3.5-35.0) ng/L Total Protein 7.6 (6.5-8.0) g/dL Albumin 4.5 (3.5-5.0) g/dL Triglycerides 284 mg/dL Cholesterol 164 mg/dL LDL Cholesterol, Calc 71 mg/dl HDL Cholesterol 37 mg/dL Urine Color Yellow Urine Appearance Clear Urine pH 5.0 (5.0-9.0) Ur Specific [place] 1.020 (1.005-1.025) Urine Protein Negative (Neg-Trace) mg/dL Urine Glucose (UA) Negative (Negative) mg/dL Urine Ketones Negative (Negative) mg/dL Urine Blood Trace H (Negative) Urine Nitrite Negative (Negative) Ur Leukocyte Esterase Negative (Negative) Urine RBC 0-2 (0-2) /HPF Urine WBC 0-5 (0-5) /HPF Ur Squamous Epith Cells 0-2 (0-2) /HPF Urine Bacteria None Seen (None Seen) Hyaline Casts 0-2 (0-2) /LPF Influenza Type A (PCR) (Negative) Influenza Type B (PCR) (Negative) RSV RNA Qual (PCR) (Negative) SARS-CoV-2 RNA (RT-PCR) (Negative) <Brian Diez - Last Filed: 09/25/22 00:01> Independent Interpretation I performed an independent interpretation of an: Plain X-Ray <Brian Diez - Last Filed: 09/25/22 00:01> Interpretation: No acute pathology in the cardiothoracic region <Brian Diez - Last F iled: 09/25/22 00:01> Radiology Impression Discussion of test interpretation with radiology: I have reviewed the radiologist's reading. <Brian Diez - Last Filed: 09/25/22 00:01> Discharge Plan Discharge Clinical Impression: Facial droop, Dysarthria <FERNANDO Bustamante - Last Filed: 09/24/22 15:29> Patient Disposition: Admitted As Inpatient <FERNANDO Bustamante - Last Filed: 09/24/22 15:29>
[2022-09-24 16:14] LABS: MANUAL DIFF FLAG NO
[2022-09-24 16:17] LABS: Basophils Absolute Auto 0.1 X10*3/uL (0.0-0.2); Basophils Percent Auto 0.7 % (0-2); Eosinophils Absolute Auto 0.1 X10*3/uL (0.0-0.4); Hematocrit 47.6 % (42.0-52.0); Imm Gran Abs Auto 0.01 X10*3/uL (0.00-0.03); Imm Gran Pct Auto 0.1 % (0.0-0.4); Lymphocytes Absolute Auto 2.4 X10*3/uL (1.2-4.9); Lymphocytes Percent Auto 25.7 % (20-40); Mean Corpuscular HGB Conc 33.6 g/dl (31.0-36.0); Mean Corpuscular Volume 83.2 fL (80.0-98.0); Monocytes Absolute Auto 0.8 X10*3/uL (0.1-1.2); Monocytes Percent Auto 8.8 % (2-11); Neutrophils Absolute Auto 5.9 x10*3/uL (2.0-8.3); Neutrophils Percent Auto 63.7 % (45-73); Platelet Count 238 X10*3/uL (160-400); Red Blood Count 5.72 X10*6/uL (4.60-5.80); Red Cell Distribution Width 12.9 % (11.0-16.0); White Blood Count 9.2 X10*3/uL (4.8-10.8)
[2022-09-24 16:21] LABS: Prothrombin Time 11.9 SEC (10.0-13.1)
[2022-09-24 16:27] LABS: Appearance Urine Clear; Color Urine Yellow; Glucose Urine UA Negative (Negative); Leukocyte Esterase Urine Negative (Negative); Nitrite Urine Negative (Negative); UMIC TRIGGER UACC YES; Urine Blood Trace (Negative); Urine Ketones Negative (Negative); Urine Protein Negative (Neg-Trace)
[2022-09-24 16:30] LABS: Alanine Aminotransferase 46 U/L (0-40); Albumin Level 4.5 g/dL (3.5-5.0); Alkaline Phosphatase 107 U/L (39-117); Anion Gap 16 (12-20); Aspartate Amino Transferase 20 U/L (5-37); Bilirubin Total 0.3 mg/dL (0.0-1.0); Blood Urea Nitrogen 10 mg/dL (9-16); Calcium 9.4 mg/dL (8.4-10.2); Carbon Dioxide 31 mmol/L (22-29); Chloride 100 mmol/L (96-108); Creatinine Clr Calc Pharmacy 107.9; Estimated Glomerular Filt Rate > 60; Glucose Random 109 mg/dL (60-115); Magnesium 2.2 mg/dL (1.6-2.6); Potassium 3.5 mmol/L (3.3-5.1); Sodium 143 mmol/L (135-145); Total Protein 7.6 g/dL (6.5-8.0)
[2022-09-24 16:33] LABS: Bacteria Urine None Seen (None Seen); Hyaline Casts Urine 0-2 /LPF (0-2); RBC Urine 0-2 /HPF (0-2); Squamous Epithelial Cell Urine 0-2 /HPF (0-2); WBC Urine 0-5 /HPF (0-5)
[2022-09-24 16:37] LABS: Troponin-I High Sensitivity 14.9 ng/L (<3.5-35.0)
[2022-09-24 17:00] LABS: Influenza A PCR NEGATIVE (Negative); Influenza B PCR NEGATIVE (Negative); Resp Syncy Virus RNA Qual PCR NEGATIVE (Negative); SARS COV2 PCR INHOUSE NEGATIVE (Negative)
[2022-09-24 19:26] VITALS: BP 153/80; PULSE 64; RESP 16; TEMP 36.8; O2SAT 98
--- NOTE | 2022-09-24 19:29 | MHC.EDTECH ---
this pct just assumed care of pt ,vitals sign taken pt at bedside .
[2022-09-24] MEDS: Acetaminophen 325 MG TABLET 650 MG PO (20:03)
[2022-09-24] MEDS: Aspirin 325 MG TABLET PO (20:04)
--- NOTE | 2022-09-24 20:49 | PHA.MEDREC ---
MED REC COMPLETE, SPOKE WITH PATIENT AND HIS DAUGHTER Pharmacy Consult ? Medication Reconciliation Pharmacy has completed the medication reconciliation.
--- NOTE | 2022-09-24 21:05 | P.HPHOSP_ITS ---
History of Present Illness Date of Service: 09/24/22 Attending physician on admission: Chico Paige Chief Complaint: Dizziness, right-sided facial droop Pt is a 57-year-old male with a PMH significant for?HLD and HTN who presents to the ED with right-sided facial droop, slurred words, and dizziness since yesterday. Pt states he has been feeling off for the past couple of months. He has had dizziness, headache, difficulty sleeping, and fatigue during this time. Patient has been seen by his PCP, [facility], [place] [facility], and the ED here for these symptoms, last visit was 5 days ago where he was treated for anxiety-like symptoms. 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 Patient's family also noticed that he had a right-sided facial droop and was slurring his words. Patient denies falling, but has felt dizzy and lightheaded both walking and at rest. Patient denies chest pain/pressure, palpitations. No shortness of breath. Denies fever, chills, nausea, vomiting. No abdominal pain. In the ED patient was afebrile and hypertensive at 180/85. Labs were unremarkable. UA negative for UTI. CXR showed no acute cardiopulmonary process. CT?of head showed no evidence of acute intracranial hemorrhage or edematous territorial infarction. EKG demonstrated normal sinus rhythm with no evidence of ST elevations or depressions. Pt was treated with acetaminophen and aspirin. Pt will be admitted to the hospital on telemetry for workup and further evaluation of possible CVA. Review of Systems Review of Systems: Right-sided facial droop Slurred speech Dizziness Fatigue, weakness Blurriness in both eyes Yes all other systems are reviewed and are negative [facility] Medical History Hypertension Social History Household Members: None Housing: House Do you presently have visiting nurse or other home services: No Patient Tobacco Use Status: Never used Tobacco Substance Use Type: Crack/Cocaine Advance Directives: No Advance Directives Information Provided: No service: No Current occupational status: unemployed Meds Allergies Allergy/AdvReac Type Severity Reaction Status Date / Time No Known Allergies Allergy Verified 09/24/22 15:29 Active Medications: Current Medications Acetaminophen (Acetaminophen 325 Mg Tablet) 650 mg PO Q6H PRN PRN Reason: Pain, Mild (Pain Scale 1-3) Aspirin (Aspirin Enteric Coated 81 Mg Tablet.) 81 mg PO DAILY SELMA Atorvastatin Calcium (Atorvastatin Calcium 40 Mg Tablet) 40 mg PO DAILY SELMA Enoxaparin Sodium (Enoxaparin Sodium 40 Mg/0.4 Ml Syringe) 40 mg SUBCUT Q24H SELMA Melatonin (Melatonin 3 Mg Tablet) 6 mg PO BEDTIME PRN PRN Reason: Insomnia Ondansetron HCl (Ondansetron Hcl 4 Mg/2 Ml Vial) 4 mg IVPUSH Q8H PRN PRN Reason: Nausea and Vomiting Pharmacy Consult (Consult Rx Perform Med Rec) 1 each MISCELLANE ONCE PRN PRN Reason: Consult order Home Medications Medication Instructions Recorded Confirmed Last Taken Type atorvastatin 10 mg tablet 10 mg PO BEDTIME 09/21/22 09/24/22 09/23/22 History budesonide-formoterol HFA 160 2 puff inhalation BID 09/24/22 09/24/22 Unknown Hi story mcg-4.5 mcg/actuation aerosol inhaler (Symbicort) Physical Exam Vital Signs and Narrative: Vital Signs: Last Vital Signs Temp 98.2 F 09/24/22 19:26 Pulse 64 09/24/22 19:26 Resp 16 09/24/22 19:26 BP 153/80 H 09/24/22 19:26 Pulse Ox 98 09/24/22 19:26 O2 Del Method 09/24/22 19:26 BMI result Body Mass Index 32.8 Constitutional: Alert, in no acute distress. Mental Status: Oriented to person, place and time. Eyes: Pupils are equal, round, and reactive to light. Ear, Nose, and Throat: Oropharynx clear, mucous membranes moist. Ears and nose without deformities. Trachea midline. Respiratory: Clear to auscultation bilaterally. No wheezing, rales, or rhonchi. Cardiovascular: S1, S2 regular. No murmurs, rubs, or gallops. Gastrointestinal: Abdomen soft, non-tender, non-distended. Normal bowel sounds. Neurologic: Cranial nerves II-XII are grossly intact. No focal neurological deficits. Moves all extremities spontaneously. 5/5 strength upper and lower extremities bilaterally. Skin: No rashes or lesions noted. Musculoskeletal: No cyanosis or clubbing. Extremities: No edema. Psychiatric: Normal mood and affect. Results Labs 09/24/22 16:07 09/24/22 16:07 Labs: Laboratory Results - last 24 hr 09/24/22 09/24/22 09/24/22 16:03 16:07 16:07 MCV 83.2 MCH 28.0 MCHC 33.6 RDW 12.9 Plt Count 238 MPV 11.0 Immature Gran % (Auto) 0.1 Neut % (Auto) 63.7 Lymph % (Auto) 25.7 Butler % (Auto) 8.8 Eos % (Auto) 1.0 Baso % (Auto) 0.7 Lymph # (Auto) 2.4 Butler # (Auto) 0.8 Eos # (Auto) 0.1 Baso # (Auto) 0.1 Abs Immat Gran (auto) 0.01 Absolute Neuts (auto) 5.9 Absolute Nucleated RBC 0.000 Nucleated RBC % (auto) 0.0 PT 11.9 INR 1.0 Anion Gap Estim Creat Clear Calc Estimated GFR Random Glucose Calcium Magnesium Total Bilirubin AST ALT Alkaline Phosphatase Troponin I High Sens Total Protein Albumin Urine Color Urine Appearance Urine pH Ur Specific [place] Urine Protein Urine Glucose (UA) Urine Ketones Urine Blood Urine Nitrite Ur Leukocyte Esterase Urine RBC Urine WBC Ur Squamous Epith Cells Urine Bacteria Hyaline Casts Influenza Type A (PCR) NEGATIVE Influenza Type B (PCR) NEGATIVE RSV RNA Qual (PCR) NEGATIVE SARS-CoV-2 RNA (RT-PCR) NEGATIVE 09/24/22 09/24/22 09/24/22 16:07 16:07 16:11 MCV MCH MCHC RDW Plt Count MPV Immature Gran % (Auto) Neut % (Auto) Lymph % (Auto) Butler % (Auto) Eos % (Auto) Baso % (Auto) Lymph # (Auto) [place] # (Auto) Eos # (Auto) Baso # (Auto) Abs Immat Gran (auto) Absolute Neuts (auto) Absolute Nucleated RBC Nucleated RBC % (auto) PT INR Anion Gap 16 Estim Creat Clear Calc 107.9 Estimated GFR > 60 Random Glucose 109 Calcium 9.4 Magnesium 2.2 Total Bilirubin 0.3 AST 20 ALT 46 H Alkaline Phosphatase 107 Troponin I High Sens 14.9 Total Protein 7.6 Albumin 4.5 Urine Color Yellow Urine Appearance Clear Urine pH 5.0 Ur Specific [place] 1.020 Urine Protein Negative Urine Glucose (UA) Negative Urine Ketones Negative Urine Blood Trace H Urine Nitrite Negative Ur Leukocyte Esterase Negative Urine RBC 0-2 Urine WBC 0-5 Ur Squamous Epith Cells 0-2 Urine Bacteria None Seen Hyaline Casts 0-2 Influenza Type A (PCR) Influenza Type B (PCR) RSV RNA Qual (PCR) SARS-CoV-2 RNA (RT-PCR) Imaging Radiologist's Impressions: Impressions Chest X-Ray 09/24/22 15:30 IMPRESSION: No acute cardiopulmonary process. Head CT 09/24/22 16:52 IMPRESSION: No evidence of acute intracranial hemorrhage or edematous territorial infarction. Assessment and Plan (1) Facial droop: Status: Acute (2) Dizziness: Status: Inactive (3) Generalized weakness: Status: Inactive Plan Pt is a 57-year-old male with a PMH significant for?HLD and HTN who presents to the ED with right-sided facial droop, slurred words, and dizziness since yesterday. Pt states he has been feeling off for the past couple of months. He has had dizziness, headache, difficulty sleeping, and fatigue during this time. Pt will be admitted to the hospital on telemetry for workup and further evaluation of possible CVA. Question of CVA Patient with right-sided facial droop, dizziness, slurred words, fatigue, generalized weakness Patient now seemingly back to baseline with no focal deficits noted CT of head negative for acute intracranial hemorrhage or edematous territorial infarction Aspirin 81 mg daily Increase atorvastatin to 40 mg daily MRI of brain Carotid ultrasound Echocardiogram Lipid profile PT/OT and speech evaluation Neurology consult Cardiac diet Admit to telemetry HLD Increase atorvastatin to 40 mg q.d. HTN Continue hydrochlorothiazide Anxiety Continue trazodone Full Code Attending:?Dr. Paige DVT Prophylaxis: Lovenox Pt will require a hospitalization of at least two nights for treatment and further evaluation of possible CVA. Time Spent With Patient Time: Total time managing care of this patient today ____ minutes. Quality Stroke Does the patient have a stroke diagnosis?: No VTE Prior VTE?: No VTE Risk Level:: Medical - moderate - high VTE Device Contraindication: Treatment Not Indicated VTE Drug Contraindication: N/A - Med Ordered
[2022-09-24 21:12] LABS: Cholesterol 164 mg/dL; HDL Cholesterol 37 mg/dL; LDL Cholesterol Calculated 71 mg/dl; Triglycerides 284 mg/dL
[2022-09-24] MEDS: Enoxaparin Sodium 40 MG/0.4 ML SYRINGE SUBCUT (21:44)
[2022-09-24] MEDS: Atorvastatin Calcium 40 MG TABLET PO (21:44)
[2022-09-24 23:44] VITALS: BP 118/71; PULSE 58; RESP 16; TEMP 36.6; O2SAT 96
[2022-09-25 03:49] VITALS: BP 117/68; PULSE 56; RESP 16; TEMP 36.6; O2SAT 96
[2022-09-25 05:17] LABS: Estimated Average Glucose 105 mg/dL; Hemoglobin A1c % 5.3 %
[2022-09-25 05:42] LABS: MANUAL DIFF FLAG NO
[2022-09-25 05:46] LABS: Basophils Percent Auto 0.5 % (0-2); Eosinophils Absolute Auto 0.2 X10*3/uL (0.0-0.4); Eosinophils Percent Auto 2.2 % (0-4); Hematocrit 45.3 % (42.0-52.0); Hemoglobin 15.2 g/dl (14.0-18.0); Imm Gran Abs Auto 0.02 X10*3/uL (0.00-0.03); Imm Gran Pct Auto 0.3 % (0.0-0.4); Lymphocytes Absolute Auto 2.6 X10*3/uL (1.2-4.9); Mean Corpuscular HGB Conc 33.6 g/dl (31.0-36.0); Mean Corpuscular Hemoglobin 27.7 pg (27.0-33.0); Mean Corpuscular Volume 82.7 fL (80.0-98.0); Mean Platelet Volume 11.2 fL (9.4-12.4); Monocytes Absolute Auto 0.7 X10*3/uL (0.1-1.2); Monocytes Percent Auto 9.4 % (2-11); Neutrophils Absolute Auto 3.8 x10*3/uL (2.0-8.3); Neutrophils Percent Auto 51.6 % (45-73); Platelet Count 219 X10*3/uL (160-400); Red Blood Count 5.48 X10*6/uL (4.60-5.80); Red Cell Distribution Width 12.7 % (11.0-16.0); White Blood Count 7.3 X10*3/uL (4.8-10.8)
[2022-09-25 05:59] LABS: Anion Gap 15 (12-20); Blood Urea Nitrogen 11 mg/dL (9-16); Calcium 8.8 mg/dL (8.4-10.2); Carbon Dioxide 29 mmol/L (22-29); Chloride 101 mmol/L (96-108); Creatinine Clr Calc Pharmacy 112.6; Estimated Glomerular Filt Rate > 60; Glucose Random 122 mg/dL (60-115); Potassium 3.4 mmol/L (3.3-5.1); Sodium 142 mmol/L (135-145)
[2022-09-25 06:00] LABS: Cholesterol 150 mg/dL; HDL Cholesterol 31 mg/dL; LDL Cholesterol Calculated 73 mg/dl; Triglycerides 232 mg/dL
--- NOTE | 2022-09-25 07:51 | PC.NURSE ---
pt aox4 this morning, symptoms appear to have resolved, however states slight NYE and dizziness. pt will be going to room 443.
[2022-09-25 09:00] VITALS: BP 141/80; PULSE 60; PULSE 61
[2022-09-25] MEDS: Atorvastatin Calcium 40 MG TABLET PO (09:15)
[2022-09-25] MEDS: Aspirin Enteric Coated 81 MG TABLET.DR PO (09:15)
[2022-09-25] MEDS: hydroCHLOROthiazide 25 MG TABLET PO (09:15)
--- NOTE | 2022-09-25 09:55 | MHC.CM.PN ---
Lives with daughter, Amelia. No prior services or equipment; previously independent. Amelia drives him where he needs to go. At time of D/C, daughter will transport him home. CM to follow.
--- NOTE | 2022-09-25 10:31 | PM.NEUROCN ---
History of Present Illness Data of Consult Service Date: 09/25/22 Primary Care Provider: Unknown Physician HPI Reason for consult: Dizziness 57 years old man who came to hospital with at least day history of dizziness and facial droop. There was no recent headache or cold or flu-like illness or fever or trauma. When I saw him he was still complaining of being dizzy stating that did this was more like lightheadedness and not spinning or weakness. Review of Systems Review of Systems: No recent cold or flu-like illness PMFSH Past Medical History Medical History Hypertension Social History Social History Household Members: None Housing: Apartment Do you presently have visiting nurse or other home services: No Patient Tobacco Use Status: Never used Tobacco e-Cigarette/Vaping Use: Never Used Substance Use Type: Crack/Cocaine service: No Current occupational status: unemployed Meds Allergies Allergy/AdvReac Type Severity Reaction Status Date / Time No Known Allergies Allergy Verified 09/24/22 15:29 Active Medications: Current Medications Acetaminophen (Acetaminophen 325 Mg Tablet) 650 mg PO Q6H PRN PRN Reason: Pain, Mild (Pain Scale 1-3) Aspirin (Aspirin Enteric Coated 81 Mg Tablet.) 81 mg PO DAILY REPLACED BY [facility] Last Admin: 09/25/22 09:15 Dose: 81 mg Atorvastatin Calcium (Atorvastatin Calcium 40 Mg Tablet) 40 mg PO DAILY REPLACED BY [facility] Last Admin: 09/25/22 09:15 Dose: 40 mg Enoxaparin Sodium (Enoxaparin Sodium 40 Mg/0.4 Ml Syringe) 40 mg SUBCUT Q24H REPLACED BY [facility] Last Admin: 09/24/22 21:44 Dose: 40 mg Fluticasone/Vilanterol (Fluticasone/Vilanterol 200/25 Blst.W.Dev) 1 puff INHALE RDAILY REPLACED BY [facility] Hydrochlorothiazide (Hydrochlorothiazide 25 Mg Tablet) 25 mg PO DAILY REPLACED BY [facility]; Protocol Last Admin: 09/25/22 09:15 Dose: 25 mg Melatonin (Melatonin 3 Mg Tablet) 6 mg PO BEDTIME PRN PRN Reason: Insomnia Ondansetron HCl (Ondansetron Hcl 4 Mg/2 Ml Vial) 4 mg IVPUSH Q8H PRN PRN Reason: Nausea and Vomiting Pharmacy Consult (Consult Rx Perform Med Rec) 1 each MISCELLANE ONCE PRN PRN Reason: Consult order Trazodone HCl (Trazodone Hcl 50 Mg Tablet) 50 mg PO BEDTIME REPLACED BY [facility] Home Medications Medication Instructions Recorded Confirmed Last Taken Type atorvastatin 10 mg tablet 10 mg PO BEDTIME 09/21/22 09/24/22 09/23/22 History budesonide-formoterol HFA 160 2 puff inhalation BID 09/24/22 09/24/22 Unknown History mcg-4.5 mcg/actuation aerosol inhaler (Symbicort) Physical Exam Vital Signs: Vital Signs: Last Vital Signs Temp 97.8 F 09/25/22 03:49 Pulse 61 09/25/22 09:00 Resp 16 09/25/22 03:49 BP 141/80 H 09/25/22 09:00 Pulse Ox 96 09/25/22 03:49 O2 Del Method 09/25/22 03:49 BMI result Body Mass Index 32.8 Neuro: Other: Alert and awake with normal spontaneity of speech fluency comprehension and anxious affect. His initial blood pressure was high and today blood pressure was 141/80. Face was symmetrical. Visual mcrae are full. Tongue was midline. There was no focal weakness. Deep tendon reflexes were trace to 1+ with flexor plantars. Speech was normal. Results Labs 09/25/22 05:23 09/25/22 05:23 Labs: Short CBC 09/24/22 09/25/22 Range/Units 16:07 05:23 WBC 9.2 7.3 (4.8-10.8) X10*3/uL Hgb 16.0 15.2 (14.0-18.0) g/dl Hct 47.6 45.3 (42.0-52.0) % Plt Count 238 219 (160-400) X10*3/uL BMP 09/24/22 09/25/22 16:07 05:23 Sodium 143 142 Potassium 3.5 3.4 Chloride 100 101 Carbon Dioxide 31 H 29 BUN 10 11 Creatinine 0.96 0.92 Calcium 9.4 8.8 D Liver Function 09/24/22 Range/Units 16:07 Total Bilirubin 0.3 (0.0-1.0) mg/dL AST 20 (5-37) U/L ALT 46 H (0-40) U/L Alkaline Phosphatase 107 (39-117) U/L Albumin 4.5 (3.5-5.0) g/dL Urine 09/24/22 Range/Units 16:11 Urine Color Yellow Urine Appearance Clear Urine pH 5.0 (5.0-9.0) Ur Specific [place] 1.020 (1.005-1.025) Urine Protein Negative (Neg-Trace) mg/dL Urine Glucose (UA) Negative (Negative) mg/dL Noncontrast head CT did not reveal any significant abnormality. Assessment and Plan (1) Facial droop: Status: Acute 57 years old man with uncontrolled hypertension presented with dizziness and facial droop. Exam now revealed no focal finding though he was quite anxious. Testing so far has been negative. Stroke is 1 of the possibilities. He is also quite anxious raising possibility of stress and anxiety and hypertension resulting in symptom. It would be useful to define it and for that I would recommend obtaining a noncontrast head MRI. In the meantime baby aspirin daily blood pressure control and statin are recommended. If his MRI does not reveal any acute pathology, treatment of anxiety is also recommended Time Spent With Patient Time: Total time managing care of this patient today ____ minutes. Procedures Date of Service Date of Service: 09/25/22
--- NOTE | 2022-09-25 10:32 | HO.PM.IMPN ---
Subjective Subjective Date of Service: 09/25/22 Interval History: facial droop, dizziness Physical Exam Vital Signs: Vital Signs: Last Vital Signs Temp 97.8 F 09/25/22 03:49 Pulse 61 09/25/22 09:00 Resp 16 09/25/22 03:49 BP 141/80 H 09/25/22 09:00 Pulse Ox 96 09/25/22 03:49 O2 Del Method 09/25/22 03:49 BMI result Body Mass Index 32.8 facial droop Objective Data Active Medications Acetaminophen (Acetaminophen 325 Mg Tablet) 650 mg PO Q6H PRN PRN Reason: Pain, Mild (Pain Scale 1-3) Aspirin (Aspirin Enteric Coated 81 Mg Tablet.) 81 mg PO DAILY [facility] Last Admin: 09/25/22 09:15 Dose: 81 mg Documented By: RUBIO Atorvastatin Calcium (Atorvastatin Calcium 40 Mg Tablet) 40 mg PO DAILY [facility] Last Admin: 09/25/22 09:15 Dose: 40 mg Documented By: RUBIO Enoxaparin Sodium (Enoxaparin Sodium 40 Mg/0.4 Ml Syringe) 40 mg SUBCUT Q24H [facility] Last Admin: 09/24/22 21:44 Dose: 40 mg Documented By: MARY JANE Fluticasone/Vilanterol (Fluticasone/Vilanterol 200/25 Blst.W.Dev) 1 puff INHALE RDAILY [facility] Hydrochlorothiazide (Hydrochlorothiazide 25 Mg Tablet) 25 mg PO DAILY [facility]; Protocol Last Admin: 09/25/22 09:15 Dose: 25 mg Documented By: RUBIO Melatonin (Melatonin 3 Mg Tablet) 6 mg PO BEDTIME PRN PRN Reason: Insomnia Ondansetron HCl (Ondansetron Hcl 4 Mg/2 Ml Vial) 4 mg IVPUSH Q8H PRN PRN Reason: Nausea and Vomiting Pharmacy Consult (Consult Rx Perform Med Rec) 1 each MISCELLANE ONCE PRN PRN Reason: Consult order Trazodone HCl (Trazodone Hcl 50 Mg Tablet) 50 mg PO BEDTIME [facility] Labs 09/25/22 05:23 09/25/22 05:23 Labs: Laboratory Results - last 24 hr 09/24/22 09/24/22 09/24/22 16:03 16:07 16:07 MCV 83.2 MCH 28.0 MCHC 33.6 RDW 12.9 Plt Count 238 MPV 11.0 Immature Gran % (Auto) 0.1 Neut % (Auto) 63.7 Lymph % (Auto) 25.7 [place] % (Auto) 8.8 Eos % (Auto) 1.0 Baso % (Auto) 0.7 Lymph # (Auto) 2.4 [place] # (Auto) 0.8 Eos # (Auto) 0.1 Baso # (Auto) 0.1 Abs Immat Gran (auto) 0.01 Absolute Neuts (auto) 5.9 Absolute Nucleated RBC 0.000 Nucleated RBC % (auto) 0.0 PT 11.9 INR 1.0 Anion Gap Estim Creat Clear Calc Estimated GFR Random Glucose Estimat Average Glucose Hemoglobin A1c % Calcium Magnesium Total Bilirubin AST ALT Alkaline Phosphatase Troponin I High Sens Total Protein Albumin Triglycerides Cholesterol LDL Cholesterol, Calc HDL Cholesterol Urine Color Urine Appearance Urine pH Ur Specific [place] Urine Protein Urine Glucose (UA) Urine Ketones Urine Blood Urine Nitrite Ur Leukocyte Esterase Urine RBC Urine WBC Ur Squamous Epith Cells Urine Bacteria Hyaline Casts Influenza Type A (PCR) NEGATIVE Influenza Type B (PCR) NEGATIVE RSV RNA Qual (PCR) NEGATIVE SARS-CoV-2 RNA (RT-PCR) NEGATIVE 09/24/22 09/24/22 09/24/22 16:07 16:07 16:07 MCV MCH MCHC RDW Plt Count MPV Immature Gran % (Auto) Neut % (Auto) Lymph % (Auto) [place] % (Auto) Eos % (Auto) Baso % (Auto) Lymph # (Auto) [place] # (Auto) Eos # (Auto) Baso # (Auto) Abs Immat Gran (auto) Absolute Neuts (auto) Absolute Nucleated RBC Nucleated RBC % (auto) PT INR Anion Gap 16 Estim Creat Clear Calc 107.9 Estimated GFR > 60 Random Glucose 109 Estimat Average Glucose 105 Hemoglobin A1c % 5.3 Calcium 9.4 Magnesium 2.2 Total Bilirubin 0.3 AST 20 ALT 46 H Alkaline Phosphatase 107 Troponin I High Sens 14.9 Total Protein 7.6 Albumin 4.5 Triglycerides 284 Cholesterol 164 LDL Cholesterol, Calc 71 HDL Cholesterol 37 Urine Color Urine Appearance Urine pH Ur Specific [place] Urine Protein Urine Glucose (UA) Urine Ketones Urine Blood Urine Nitrite Ur Leukocyte Esterase Urine RBC Urine WBC Ur Squamous Epith Cells Urine Bacteria Hyaline Casts Influenza Type A (PCR) Influenza Type B (PCR) RSV RNA Qual (PCR) SARS-CoV-2 RNA (RT-PCR) 09/24/22 09/25/22 09/25/22 16:11 05:23 05:23 MCV 82.7 MCH 27.7 MCHC 33.6 RDW 12.7 Plt Count 219 MPV 11.2 Immature Gran % (Auto) 0.3 Neut % (Auto) 51.6 Lymph % (Auto) 36.0 [place] % (Auto) 9.4 Eos % (Auto) 2.2 Baso % (Auto) 0.5 Lymph # (Auto) 2.6 [place] # (Auto) 0.7 Eos # (Auto) 0.2 Baso # (Auto) 0.0 Abs Immat Gran (auto) 0.02 Absolute Neuts (auto) 3.8 Absolute Nucleated RBC 0.000 Nucleated RBC % (auto) 0.0 PT INR Anion Gap 15 Estim Creat Clear Calc 112.6 Estimated GFR > 60 Random Glucose 122 H Estimat Average Glucose Hemoglobin A1c % Calcium 8.8 D Magnesium Total Bilirubin AST ALT Alkaline Phosphatase Troponin I High Sens Total Protein Albumin Triglycerides Cholesterol LDL Cholesterol, Calc HDL Cholesterol Urine Color Yellow Urine Appearance Clear Urine pH 5.0 Ur Specific [place] 1.020 Urine Protein Negative Urine Glucose (UA) Negative Urine Ketones Negative Urine Blood Trace H Urine Nitrite Negative Ur Leukocyte Esterase Negative Urine RBC 0-2 Urine WBC 0-5 Ur Squamous Epith Cells 0-2 Urine Bacteria None Seen Hyaline Casts 0-2 Influenza Type A (PCR) Influenza Type B (PCR) RSV RNA Qual (PCR) SARS-CoV-2 RNA (RT-PCR) 09/25/22 05:23 MCV MCH MCHC RDW Plt Count MPV Immature Gran % (Auto) Neut % (Auto) Lymph % (Auto) [place] % (Auto) Eos % (Auto) Baso % (Auto) Lymph # (Auto) [place] # (Auto) Eos # (Auto) Baso # (Auto) Abs Immat Gran (auto) Absolute Neuts (auto) Absolute Nucleated RBC Nucleated RBC % (auto) PT INR Anion Gap Estim Creat Clear Calc Estimated GFR Random Glucose Estimat Average Glucose Hemoglobin A1c % Calcium Magnesium Total Bilirubin AST ALT Alkaline Phosphatase Troponin I High Sens Total Protein Albumin Triglycerides 232 Cholesterol 150 LDL Cholesterol, Calc 73 HDL Cholesterol 31 Urine Color Urine Appearance Urine pH Ur Specific [place] Urine Protein Urine Glucose (UA) Urine Ketones Urine Blood Urine Nitrite Ur Leukocyte Esterase Urine RBC Urine WBC Ur Squamous Epith Cells Urine Bacteria Hyaline Casts Influenza Type A (PCR) Influenza Type B (PCR) RSV RNA Qual (PCR) SARS-CoV-2 RNA (RT-PCR) Assessment and Plan (1) Facial droop: Status: Acute Plan 57-year-old male with a PMH significant for?HLD and HTN who presented to the ED with right-sided facial droop, slurred words, and dizziness rule out CVA CT of head negative for acute intracranial hemorrhage or edematous territorial infarction Aspirin 81 mg daily Increase atorvastatin to 40 mg daily MRI of brain Echocardiogram Lipid profile PT/OT and speech evaluation Neurology consult HLD Increase atorvastatin to 40 mg q.d. HTN hydrochlorothiazide Anxiety trazodone Full Code DVT Prophylaxis: Lovenox reason for continued hospitalization:awaiting mri, neuro Time Spent With Patient Time: Total time managing care of this patient today ____ minutes. Quality Stroke Does the patient have a stroke diagnosis?: No VTE Prior VTE?: No VTE Risk Level:: Medical - moderate - high VTE Device Contraindication: Treatment Not Indicated VTE Drug Contraindication: N/A - Med Ordered
[2022-09-25 12:00] VITALS: BP 130/70; PULSE 76; RESP 18; TEMP 36.6; O2SAT 98
[2022-09-25 15:15] VITALS: BP 156/89; PULSE 70; RESP 17; TEMP 37.3; O2SAT 93
[2022-09-25 18:44] VITALS: BP 136/82; PULSE 68; RESP 17; TEMP 37; O2SAT 94
[2022-09-25] MEDS: Enoxaparin Sodium 40 MG/0.4 ML SYRINGE SUBCUT (20:38)
[2022-09-25] MEDS: traZODone HCL 50 MG TABLET PO (20:39)
[2022-09-26] VITALS: BP 133/70; PULSE 65; RESP 15; TEMP 36.5; O2SAT 97
[2022-09-26 04:00] VITALS: BP 125/72; PULSE 65; RESP 16; TEMP 36.5; O2SAT 97
[2022-09-26] MEDS: Fluticasone/Vilanterol 200/25 BLST.W.DEV 1 PUFF INHALE (07:39)
[2022-09-26 07:40] VITALS: PULSE 63; RESP 15; O2SAT 97
[2022-09-26 08:00] VITALS: BP 136/83; PULSE 56; RESP 18; TEMP 36.6; O2SAT 97
--- NOTE | 2022-09-26 09:26 | PM.DS ---
DS: Providers Provider Date of Service: 09/26/22 Date of admission: 09/24/22 20:43 Primary care physician: Unknown Physician Consults: 09/24/22 20:43 Consult to Neurology Routine Consulting Provider: Sushil Marcus Reason for consultation: CVA DS: Diagnosis Discharge Diagnosis (1) Facial droop: Status: Acute DS: Summary Hospital Course Hospital Course: from initial hpi: Pt is a 57-year-old male with a PMH significant for?HLD and HTN who presents to the ED with right-sided facial droop, slurred words, and dizziness since yesterday. Pt states he has been feeling off for the past couple of months. He has had dizziness, headache, difficulty sleeping, and fatigue during this time.? Patient has been seen by his PCP, [facility] ED, and the ED here for these symptoms, last visit was 5 days ago where he was treated for anxiety-like symptoms. 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 Patient's family also noticed that he had a right-sided facial droop and was slurring his words.? Patient denies falling, but has felt dizzy and lightheaded both walking and at rest.? Patient denies chest pain/pressure, palpitations.? No shortness of breath.? Denies fever, chills, nausea, vomiting.? No abdominal pain. In the ED patient was afebrile and hypertensive at 180/85. Labs were? unremarkable.? UA negative for UTI. CXR showed no acute cardiopulmonary process. CT?of head showed no evidence of acute intracranial hemorrhage or edematous territorial infarction. EKG demonstrated normal sinus rhythm with no evidence of ST elevations or depressions. Pt was treated with acetaminophen and aspirin. Pt will be admitted to the hospital on telemetry for workup and further evaluation of possible CVA. hospital course: patient was admitted for facial droop, was started on asa, statin, carotids unremarkable, unable to obtain mri, will obtain as outpatient. no events on tele. for hld was continued on statin, for htn was continued on hctz. for anxiety was continued to trazadone. Time Spent with Patient Time attestation: Total time managing care of this patient today ____ minutes. Discharge coordination time: Greater than 30 minutes Quality: Safe Use of Opioids Does Pt have an Active Cancer Diagnosis on the Problem List?: No Quality: Stroke Does the patient have a stroke diagnosis?: No Physical Exam Vital Signs: Vital Signs: Last Vital Signs Temp 97.9 F 09/26/22 08:00 Pulse 56 09/26/22 08:00 Resp 18 09/26/22 08:00 BP 136/83 09/26/22 08:00 Pulse Ox 97 09/26/22 08:00 O2 Del Method 09/26/22 08:00 BMI result Body Mass Index 32.8 General: AO X 3, no acute distress Resp: CTA bilateral, no accessory muscles used CVS: S1,S2,RRR GI: soft, non tender, non distended Neuro: motor grossly intact, alert Psych: appropriate affect, appropriate insight Discharge Plan Discharge Anticipated Discharge Date/Time: 09/26/22 09:23 Patient Disposition: Home, Self-Care Discharge Diagnosis: facial droop Referrals: Sushil Marcus MD [Physician] - 1 Week Physician,Unknown J [Primary Care Provider] - 1 Week Discharge Medications: New aspirin 81 mg Tablet,Delayed Release (Dr/Ec) 81 mg PO DAILY Qty: 30 0RF Continued hydrochlorothiazide 25 mg tablet 25 mg PO DAILY Qty: 30 0RF budesonide-formoterol [Symbicort] 160-4.5 mcg/actuation Hfa Aerosol Inhaler 2 puff INHALATION BID atorvastatin 10 mg tablet 10 mg PO BEDTIME trazodone 50 mg tablet 50 mg PO BEDTIME 30 Days Qty: 30 3RF Discharge Orders: Discharge Order (Routine); Ordered 09/26/22 Ordered By: Long Ortega Diet: Advance to usual diet Activity on Discharge: As tolerated Stand Alone Forms: Patient Portal Discharge page Care Plan Goals: prevent further events Health Concerns: possible tia/cva Plan of Treatment: asa, statin, mri as outpatient, follow up neuro Assessment: see above
[2022-09-26] MEDS: Atorvastatin Calcium 40 MG TABLET PO (09:48)
[2022-09-26] MEDS: Aspirin Enteric Coated 81 MG TABLET.DR PO (09:48)
[2022-09-26] MEDS: hydroCHLOROthiazide 25 MG TABLET PO (09:48)
--- NOTE | 2022-09-26 10:19 | MHC.CM.PN ---
PT WILL DC HOME TODAY WITH NO SERVICES FAMILY TO TRANSPORT
== END 2022-09-26 12:05 | disposition home or self-care (01) | DRG 58 ==
LOC: HO.ED 20:25 → HO.EDOVER 20:50 → HO.IMC 09-25 06:59
PROVIDERS: Physician Assistant Medical; Admitting Provider Student in an Organized Health Care Education/Training Program; Emergency Provider Emergency Medicine; PCP Internal Medicine; Visit Provider Internal Medicine
DX: R29.810 Facial weakness (principal); E66.01 Morbid (severe) obesity due to excess calories; I10 Essential (primary) hypertension; F41.9 Anxiety disorder, unspecified; E78.5 Hyperlipidemia, unspecified; G47.33 Obstructive sleep apnea (adult) (pediatric); Z68.32 Body mass index [BMI] 32.0-32.9, adult; Z79.82 Long term (current) use of aspirin; Z79.899 Other long term (current) drug therapy
CPT/HCPCS: 0241U; 36415; 70450; 71046; 80048; 80053; 80061; 81001; 83036; 83735; 84484; 85025; 85610; 93005; 93880; 97161; 99285; J1650

== ENCOUNTER → 2022-10-08 13:44 | Outpatient (REF) | payer OTHER, SELFPAY | LOC: HO.SL 13:44 | PROVIDERS: PCP Internal Medicine; Visit Provider Internal Medicine Pulmonary Disease | DX: G47.33 Obstructive sleep apnea (adult) (pediatric) (principal) | CPT/HCPCS: 95806 ==

== ENCOUNTER → 2022-10-20 15:11 | Outpatient (BNVA) | payer OTHER, SELFPAY | PROVIDERS: PCP Internal Medicine; Visit Provider Internal Medicine Pulmonary Disease | DX: G47.33 Obstructive sleep apnea (adult) (pediatric) (principal); G47.00 Insomnia, unspecified; E66.01 Morbid (severe) obesity due to excess calories; Z68.33 Body mass index [BMI] 33.0-33.9, adult | CPT/HCPCS: 99212 ==

== ENCOUNTER → 2023-01-26 15:15 | Outpatient (BNVA) | payer OTHER, SELFPAY | PROVIDERS: PCP Internal Medicine; Visit Provider Internal Medicine Pulmonary Disease | DX: G47.33 Obstructive sleep apnea (adult) (pediatric) (principal); J45.909 Unspecified asthma, uncomplicated | CPT/HCPCS: 99212 ==

== ENCOUNTER 2023-03-02 12:26 | Emergency (ER) | payer OTHER, SELFPAY ==
[2023-03-02 12:34] VITALS: BP 139/84; PULSE 105; RESP 18; TEMP 36.8; O2SAT 98; BMI 34.6
--- NOTE | 2023-03-02 12:36 | ED_ITS ---
HPI - Dizziness General Chief Complaint: Dizziness Stated Complaint: dizzy/high sugar?/ weak Time Seen by Provider: 03/02/23 17:55 Source: patient Mode of arrival: ambulatory Limitations: no limitations History of Present Illness HPI Narrative: Patient history of vertigo for more than 6 months taking meclizine off and on previous workup was normal feels weak no fever no chills no nausea no vomiting has slight headache in the frontal area no sore throat no cough no earache has tinnitus on the left ear Related Data Home Medications Medication Instructions Recorded Confirmed atorvastatin 10 mg tablet 10 mg PO BEDTIME 09/21/22 09/24/22 Previous Rx's Medication Instructions Recorded hydrochlorothiazide 25 mg tablet 25 mg PO DAILY #30 tabs 09/19/22 aspirin 81 mg tablet,delayed 81 mg PO DAILY #30 tabs 09/26/22 release Symbicort 160 mcg-4.5 2 puff inhalation BID #10.2 ea 01/28/23 mcg/actuation HFA aerosol inhaler (budesonide-formoterol) trazodone 50 mg tablet 50 mg PO BEDTIME #30 tabs 01/28/23 amoxicillin 875 mg-potassium 1 tab PO BID #20 tabs 03/02/23 clavulanate 125 mg tablet lorazepam 1 mg tablet (Ativan) 1 mg PO BEDTIME PRN Severe 03/02/23 dizziness #7 tabs meclizine 25 mg tablet (Dramamine 25 mg PO TID PRN dizziness #30 tabs 03/02/23 (meclizine)) Allergies Allergy/AdvReac Type Severity Reaction Status Date / Time No Known Allergies Allergy Verified 03/02/23 12:34 Review of Systems Review of Systems: Yes all other systems are reviewed and are negative PMFSH Past Medical History Medical History Hypertension Social History Social History Household Members: None Housing: Apartment Do you presently have visiting nurse or other home services: No Alcohol intake: former Patient Tobacco Use Status: Never used Tobacco Smoked in Last 30 Days: No e-Cigarette/Vaping Use: Never Used Use of substances other than those prescribed or required for medical reasons: No Substance Use Type: Crack/Cocaine Advance Directives: No Advance Directives Information Provided: No service: No Current occupational status: unemployed Physical Exam Vital Signs: Vital Signs: Last Vital Signs Temp 98.5 F 03/02/23 18:40 Pulse 83 03/02/23 18:49 Resp 16 03/02/23 18:40 BP 126/73 03/02/23 18:49 Pulse Ox 99 03/02/23 18:40 O2 Del Method Room Air 03/02/23 18:40 BMI result Body Mass Index 34.6 Appearance: Alert. Oriented X3. No acute distress. Eyes: PERRLA, No Nystagmus ENT: Pharynx normal. Oral Mucosa moist Neck: Normal inspection. Neck supple. CVS: Normal heart rate and rhythm. Pulses normal. Respiratory: No respiratory distress. Equal air entry bilateral, no wheezing/rales/rhonchi Abdomen: Soft and nontender. Bowel sounds are present, no mass palpable, no CVA tenderness Skin: Skin warm and dry. Normal skin color. Normal skin turgor. Extremities: No lower extremity edema. No calf tenderness Neuro: Oriented X 3. No motor deficit. No sensory deficit.No cerebellar signs , cranial nerves II-XII intact Course Course Course Narrative: RME - 57 yo male with history of HTN, HLD who presents to the ER for evaluation of 2 days of dizziness and generalized weakness. Intermittently has difficulty with word finding but this is chronic. Hx similar presentation in Sep where he was admitted, MRI not performed. Plan: labs, EKG, orthostatics Medications Administered Discontinued Medications Generic Name Dose Route Start Last Admin Trade Name Tuckerq PRN Reason Stop Dose Admin Amoxicillin/Clavulanate Potassium 875 mg 03/02/23 18:55 03/02/23 19:07 Amoxicillin/Potassium Clav 875 Mg Tablet PO 03/02/23 18:56 875 mg ONCE ONE Administration Lorazepam 1 mg 03/02/23 18:29 03/02/23 19:07 Lorazepam 1 Mg Tablet PO 03/02/23 18:30 1 mg ONCE ONE Administration Meclizine HCl 50 mg 03/02/23 18:29 03/02/23 19:07 Meclizine Hcl 25 Mg Tablet PO 03/02/23 18:30 50 mg ONCE ONE Administration Medical Decision Making Lab Data [facility] Lab Attestation statement: I reviewed the patient's lab results. 03/02/23 14:28 03/02/23 14:28 Labs: Lab Results 03/02/23 03/02/23 03/02/23 Range/Units 14:28 14:28 14:28 WBC 18.3 H (4.8-10.8) X10*3/uL RBC 5.80 (4.60-5.80) X10*6/uL Hgb 16.1 (14.0-18.0) g/dl Hct 48.5 (42.0-52.0) % MCV 83.6 (80.0-98.0) fL MCH 27.8 (27.0-33.0) pg MCHC 33.2 (31.0-36.0) g/dl RDW 13.2 (11.0-16.0) % Plt Count 222 (160-400) X10*3/uL MPV 10.5 (9.4-12.4) fL Immature Gran % (Auto) 0.4 (0.0-0.4) % Neut % (Auto) 84.8 H (45-73) % Lymph % (Auto) 8.9 L (20-40) % [place] % (Auto) 5.3 (2-11) % Eos % (Auto) 0.3 (0-4) % Baso % (Auto) 0.3 (0-2) % Lymph # (Auto) 1.6 (1.2-4.9) X10*3/uL [place] # (Auto) 1.0 (0.1-1.2) X10*3/uL Eos # (Auto) 0.1 (0.0-0.4) X10*3/uL Baso # (Auto) 0.1 (0.0-0.2) X10*3/uL Abs Immat Gran (auto) 0.08 H (0.00-0.03) X10*3/uL Absolute Neuts (auto) 15.5 H (2.0-8.3) x10*3/uL Absolute Nucleated RBC 0.000 (0.0-0.012) X10*3/uL Nucleated RBC % (auto) 0.0 (0.0-0.2) /100WBC Sodium 141 (135-145) mmol/L Potassium 3.8 (3.3-5.1) mmol/L Chloride 102 (96-108) mmol/L Carbon Dioxide 33 H (22-29) mmol/L Anion Gap 10 L (12-20) BUN 8 L (9-16) mg/dL Creatinine 1.07 (0.5-1.4) mg/dL Estim Creat Clear Calc 99.4 Estimated GFR > 60 Random Glucose 102 (60-115) mg/dL Calcium 9.0 (8.4-10.2) mg/dL Magnesium 2.3 (1.6-2.6) mg/dL Total Bilirubin 0.8 (0.0-1.0) mg/dL Direct Bilirubin 0.2 (0.0-0.5) mg/dL AST 24 (5-37) U/L ALT 40 (0-40) U/L Alkaline Phosphatase 90 (39-117) U/L Troponin I High Sens 13.9 (<3.5-35.0) ng/L Total Protein 7.7 (6.5-8.0) g/dL Albumin 4.2 (3.5-5.0) g/dL Discharge Plan Discharge Clinical Impression: Benign paroxysmal positional vertigo, Sinusitis nasal Patient Disposition: Home, Self-Care Instructions: Rhinosinusitis (ED), Benign Paroxysmal Positional Vertigo (ED) Additional Instructions: Take antibiotic as prescribed Continue meclizine 1 tablet every 8 hours as needed Follow-up with ENT as advised Care and cautions as advised [place] el antibi?shad seg?n lo prescrito Contin?e con meclizina 1 tableta cada 8 horas seg?n sea necesario Seguimiento con otorrinolaring?logo seg?n lo recomendado Cuidados y precauciones seg?n lo recomendado Prescriptions: New meclizine [Dramamine (meclizine)] 25 mg tablet 25 mg PO TID PRN (Reason: dizziness) Qty: 30 0RF lorazepam [Ativan] 1 mg tablet 1 mg PO BEDTIME PRN (Reason: Severe dizziness) Qty: 7 0RF amoxicillin-pot clavulanate 875-125 mg tablet 1 tab PO BID Qty: 20 0RF No Action budesonide-formoterol [Symbicort] 160-4.5 mcg/actuation HFA aerosol inhaler 2 puff inhalation BID Qty: 10.2 6RF trazodone 50 mg tablet 50 mg PO BEDTIME Qty: 30 3RF hydrochlorothiazide 25 mg tablet 25 mg PO DAILY Qty: 30 0RF aspirin 81 mg Tablet,Delayed Release (Dr/Ec) 81 mg PO DAILY Qty: 30 0RF atorvastatin 10 mg tablet 10 mg PO BEDTIME Referrals: Carrington Garcia [Physician] - 1 week Interventions: ED Discharge Assessment Last Done: 03/02/23 20:09 Discharge Date/Time: 03/02/23 20:10 Print Language: Divehi
--- NOTE | 2023-03-02 12:39 | ECG_ITS ---
Test Reason : dizzy Blood Pressure : / mmHG Vent. Rate : 096 BPM Atrial Rate : 096 BPM P-R Int : 162 ms QRS Dur : 086 ms QT Int : 344 ms P-R-T Axes : 018 -10 126 degrees QTc Int : 434 ms Normal sinus rhythm Possible Left atrial enlargement T wave abnormality, consider lateral ischemia Abnormal ECG When compared with ECG of 24-SEP-2022 15:57, No significant change was found Referred By: Sally Murry Electronically Signed By:ROD BLUE MD
[2023-03-02 14:36] LABS: MANUAL DIFF FLAG NO
[2023-03-02 14:39] LABS: Basophils Absolute Auto 0.1 X10*3/uL (0.0-0.2); Basophils Percent Auto 0.3 % (0-2); Eosinophils Absolute Auto 0.1 X10*3/uL (0.0-0.4); Eosinophils Percent Auto 0.3 % (0-4); Hematocrit 48.5 % (42.0-52.0); Hemoglobin 16.1 g/dl (14.0-18.0); Imm Gran Abs Auto 0.08 X10*3/uL (0.00-0.03); Imm Gran Pct Auto 0.4 % (0.0-0.4); Lymphocytes Absolute Auto 1.6 X10*3/uL (1.2-4.9); Lymphocytes Percent Auto 8.9 % (20-40); Mean Corpuscular HGB Conc 33.2 g/dl (31.0-36.0); Mean Corpuscular Hemoglobin 27.8 pg (27.0-33.0); Mean Corpuscular Volume 83.6 fL (80.0-98.0); Mean Platelet Volume 10.5 fL (9.4-12.4); Monocytes Percent Auto 5.3 % (2-11); Neutrophils Absolute Auto 15.5 x10*3/uL (2.0-8.3); Neutrophils Percent Auto 84.8 % (45-73); Platelet Count 222 X10*3/uL (160-400); Red Cell Distribution Width 13.2 % (11.0-16.0); White Blood Count 18.3 X10*3/uL (4.8-10.8)
[2023-03-02 14:52] LABS: Alanine Aminotransferase 40 U/L (0-40); Albumin Level 4.2 g/dL (3.5-5.0); Alkaline Phosphatase 90 U/L (39-117); Anion Gap 10 (12-20); Aspartate Amino Transferase 24 U/L (5-37); Bilirubin Direct 0.2 mg/dL (0.0-0.5); Bilirubin Total 0.8 mg/dL (0.0-1.0); Blood Urea Nitrogen 8 mg/dL (9-16); Carbon Dioxide 33 mmol/L (22-29); Chloride 102 mmol/L (96-108); Creatinine Clr Calc Pharmacy 99.4; Estimated Glomerular Filt Rate > 60; Glucose Random 102 mg/dL (60-115); Magnesium 2.3 mg/dL (1.6-2.6); Potassium 3.8 mmol/L (3.3-5.1); Sodium 141 mmol/L (135-145); Total Protein 7.7 g/dL (6.5-8.0)
[2023-03-02 14:59] LABS: Troponin-I High Sensitivity 13.9 ng/L (<3.5-35.0)
[2023-03-02 18:40] VITALS: PULSE 75; RESP 16; TEMP 36.9; O2SAT 99
[2023-03-02 18:44] VITALS: BP 129/70; PULSE 75
[2023-03-02 18:47] VITALS: BP 117/76; PULSE 77
[2023-03-02 18:49] VITALS: BP 126/73; PULSE 83
[2023-03-02] MEDS: Meclizine HCl 25 MG TABLET 50 MG PO (19:07)
[2023-03-02] MEDS: Amoxicillin/Potassium Clav 875 MG TABLET PO (19:07)
[2023-03-02] MEDS: LORazepam 1 MG TABLET PO (19:07)
== END 2023-03-02 20:10 | disposition home or self-care (01) ==
PROVIDERS: Physician Assistant; Emergency Provider Internal Medicine; PCP Internal Medicine
DX: H81.10 Benign paroxysmal vertigo, unspecified ear (principal); J32.9 Chronic sinusitis, unspecified
CPT/HCPCS: 36415; 80048; 80076; 83735; 84484; 85025; 93005; 99283; 99284

== ENCOUNTER → 2023-03-02 12:39 | Outpatient (BNV) | payer OTHER, SELFPAY | PROVIDERS: PCP Internal Medicine; Visit Provider Internal Medicine Cardiovascular Disease | DX: I50.9 Heart failure, unspecified (principal) | CPT/HCPCS: 93010 ==

== ENCOUNTER 2023-05-26 15:28 | Outpatient (AMB) | payer OTHER, SELFPAY ==
[2023-05-26 15:29] VITALS: BP 138/97; PULSE 86; O2SAT 97; BMI 34.7
--- NOTE | 2023-05-26 15:29 | MHC.OFFVIS ---
Intake Vital Signs 05/26/23 15:29 Height 5 ft 11 in Weight 249 lb 1.957 oz BMI 34.7 BP 138/97 H Blood Pressure Location Lt brachial Position Sitting Pulse 86 Pulse Source Doppler Pulse Oximetry (%) 97 Oxygen Delivery Method Room Air Intake Visit Reasons: Asthma Sales Order Processor Required: Yes Sales Order Processor Name: Danielle Jose Baez Allergies No Known Allergies Allergy (Verified 05/26/23 15:33) HPI Asthma HPI Details 57-year-old gentleman, nonsmoker, followed for asthma and severe obstructive sleep apnea. Unfortunately he has not received his CPAP machine yet. He also states that his symptomatic control is getting worse on Symbicort, though he denies an acute exacerbation. [facility] Medical History Hypertension Social History Household Members: None Housing: Apartment Do you presently have visiting nurse or other home services: No Alcohol intake: former Patient Tobacco Use Status: Never used Tobacco e-Cigarette/Vaping Use: Never Used Substance Use Type: Crack/Cocaine service: No Current occupational status: unemployed Review of Systems Const Denies daytime sleepiness, Denies excessive sweating, Denies fatigue, Denies fever(s), Denies lethargy, Denies malaise, Denies night sweats, Denies snoring and Denies weight loss Eyes Denies blurry vision and Denies itchy eyes ENT Denies nasal congestion, Denies post nasal drip, Denies sinus pain, Denies sinus pressure and Denies other ( Thrush) Card Denies chest pain, Denies pedal edema, Denies dyspnea, Denies orthopnea and Denies paroxysmal nocturnal dyspnea Resp Denies cough, Denies hemoptysis, Denies excessive phlegm production, Denies dyspnea, Denies snoring and Denies wheezing GI Denies abdominal pain and Denies heartburn Musc Denies myalgias, Denies arthralgias and Denies joint swelling Skin/Breast Denies rash Neuro Denies memory loss and Denies seizure-like activity Psych Denies abnormal sleep pattern, Denies anxiety and Denies memory loss Endo Denies excessive sweating, Denies fatigue and Denies heat intolerance Ludwig/Lymph Denies easy bruising Aller/Immun Denies itchy eyes, Denies seasonal rhinorrhea and Denies wheezing Physical Exam Vital Signs: Last Vital Signs Pulse 86 05/26/23 15:29 BP 138/97 H 05/26/23 15:29 Pulse Ox 97 05/26/23 15:29 Oxygen Delivery Method Room Air 05/26/23 15:29 BMI result Body Mass Index 34.7 Const General: no acute distress and alert Nutritional Appearance: not obese Orientation/consciousness: Other orientation findings ( oriented) HEENT Head: Yes atraumatic Eyes General: appearance normal, both eyes and all related structures Sclerae: sclerae normal EOM: EOMs intact bilaterally Neck Neck: Yes supple Lymphatic: no lymphadenopathy noted Resp Effort & Inspection: normal respiratory effort and no use of accessory muscles Auscultation: clear to auscultation bilaterally Cardio Rate: regular rate Rhythm: regular rhythm Heart sounds: no gallops, no murmurs and no rubs Skin General skin exam: other ( warm) Extrem General: No clubbing, No cyanosis and No edema Assessment & Plan Assessment & Plan (1) Asthma: Code(s): J45.909 - Unspecified asthma, uncomplicated Plan: Worsening controlled on Symbicort, will change to BrezTri. Continue albuterol MDI. (2) CECILIA (obstructive sleep apnea): Code(s): G47.33 - Obstructive sleep apnea (adult) (pediatric) Plan: Patient still has not received his CPAP machine. Expect symptoms to improve with initiation of CPAP therapy. Medications: New Breztri Aerosphere 160-9-4.8 mcg/actuation (cedcnthdjd-nanbgddq-mjdcrkaton) 2 inhalations inhalation BID 1 ea 6RF 30 days NS Discontinued Symbicort 160-4.5 mcg/actuation (budesonide-formoterol) Discontinued Reason: Doctor's Order 2 puffs inhalation BID 10.2 ea 6RF NS Coding Level of Care Code Est Pt Level 4 (87403) Diagnoses Asthma J45.909 CECILIA (obstructive sleep apnea) G47.33
== END 2023-05-26 15:46 | disposition home or self-care (01) ==
PROVIDERS: PCP Internal Medicine; Visit Provider Internal Medicine Pulmonary Disease
DX: J45.909 Unspecified asthma, uncomplicated (principal); G47.33 Obstructive sleep apnea (adult) (pediatric)
CPT/HCPCS: 99214

== ENCOUNTER → 2023-05-26 15:28 | Outpatient (BNVA) | payer OTHER, SELFPAY | PROVIDERS: PCP Internal Medicine; Visit Provider Internal Medicine Pulmonary Disease | DX: J45.909 Unspecified asthma, uncomplicated (principal); G47.33 Obstructive sleep apnea (adult) (pediatric) | CPT/HCPCS: 99212 ==

== ENCOUNTER 2023-08-18 14:51 | Outpatient (AMB) | payer OTHER, SELFPAY ==
--- NOTE | 2023-08-18 15:16 | MHC.OFFVIS ---
Intake Vital Signs 08/18/23 15:17 Height 5 ft 11 in Weight 244 lb 11.41 oz BMI 34.1 BP 108/67 Blood Pressure Location Rt brachial Position Sitting Pulse 84 Pulse Source Doppler Pulse Oximetry (%) 96 Oxygen Delivery Method Room Air Intake Visit Reasons: Asthma Allergies No Known Allergies Allergy (Verified 08/18/23 15:22) HPI Asthma HPI Details 58-year-old gentleman, nonsmoker, followed for asthma and severe obstructive sleep apnea. Unfortunately he has not received his CPAP machine yet, neither has he received his BrezTri, thus his pulmonary and sleep apnea symptoms are not controlled this time. Though he denies an acute exacerbation. [facility]LY [facility] Medical History Hypertension Social History Household Members: None Housing: Apartment Do you presently have visiting nurse or other home services: No Alcohol intake: former Patient Tobacco Use Status: Never used Tobacco e-Cigarette/Vaping Use: Never Used Substance Use Type: Crack/Cocaine service: No Current occupational status: unemployed Review of Systems Const Reports daytime sleepiness, Denies excessive sweating, Denies fatigue, Denies fever(s), Reports lethargy, Denies malaise, Denies night sweats, Reports snoring and Denies weight loss Eyes Denies blurry vision and Denies itchy eyes ENT Denies nasal congestion, Denies post nasal drip, Denies sinus pain, Denies sinus pressure and Denies other ( Thrush) Card Denies chest pain, Denies pedal edema, Denies dyspnea, Denies orthopnea and Denies paroxysmal nocturnal dyspnea Resp Denies cough, Denies hemoptysis, Denies excessive phlegm production, Denies dyspnea, Reports snoring and Reports wheezing GI Denies abdominal pain and Denies heartburn Musc Denies myalgias, Denies arthralgias and Denies joint swelling Skin/Breast Denies rash Neuro Denies memory loss and Denies seizure-like activity Psych Denies abnormal sleep pattern, Denies anxiety and Denies memory loss Endo Denies excessive sweating, Denies fatigue and Denies heat intolerance Ludwig/Lymph Denies easy bruising Aller/Immun Denies itchy eyes, Denies seasonal rhinorrhea and Reports wheezing Physical Exam Vital Signs: Last Vital Signs Pulse 84 08/18/23 15:17 BP 108/67 08/18/23 15:17 Pulse Ox 96 08/18/23 15:17 Oxygen Delivery Method Room Air 08/18/23 15:17 BMI result Body Mass Index 34.1 Const General: no acute distress and alert Nutritional Appearance: not obese Orientation/consciousness: Other orientation findings ( oriented) HEENT Head: Yes atraumatic Eyes General: appearance normal, both eyes and all related structures Sclerae: sclerae normal EOM: EOMs intact bilaterally Neck Neck: Yes supple Lymphatic: no lymphadenopathy noted Resp Effort & Inspection: normal respiratory effort and no use of accessory muscles Auscultation: clear to auscultation bilaterally Cardio Rate: regular rate Rhythm: regular rhythm Heart sounds: no gallops, no murmurs and no rubs Skin General skin exam: other ( warm) Extrem General: No clubbing, No cyanosis and No edema Assessment & Plan Assessment & Plan (1) CECILIA (obstructive sleep apnea): Code(s): G47.33 - Obstructive sleep apnea (adult) (pediatric) Plan: Has not received his CPAP machine. New order placed. (2) Asthma: Code(s): J45.909 - Unspecified asthma, uncomplicated Plan: Suboptimally controlled still on Symbicort. Will request [facility] approval. Coding Level of Care Code Est Pt Level 4 (01885) Diagnoses CECILIA (obstructive sleep apnea) G47.33 Asthma J45.909
[2023-08-18 15:17] VITALS: BP 108/67; PULSE 84; O2SAT 96; BMI 34.1
== END 2023-08-18 15:36 | disposition home or self-care (01) ==
PROVIDERS: PCP Internal Medicine; Visit Provider Internal Medicine Pulmonary Disease
DX: G47.33 Obstructive sleep apnea (adult) (pediatric) (principal); J45.909 Unspecified asthma, uncomplicated
CPT/HCPCS: 99214

== ENCOUNTER → 2023-08-18 14:51 | Outpatient (BNVA) | payer OTHER, SELFPAY | PROVIDERS: PCP Internal Medicine; Visit Provider Internal Medicine Pulmonary Disease | DX: G47.33 Obstructive sleep apnea (adult) (pediatric) (principal); J45.909 Unspecified asthma, uncomplicated | CPT/HCPCS: 99212 ==

== ENCOUNTER 2023-10-06 17:52 | Emergency (ER) | payer OTHER, SELFPAY ==
--- NOTE | ~2023-10-06 | CT_ITS ---
EXAMINATION: CT HEAD WITHOUT CONTRAST CLINICAL INFORMATION: Headache, right facial droop subacute COMPARISON: 09/24/2022 TECHNIQUE: Contiguous axial imaging was performed from the skull base to vertex without intravenous administration of contrast. This CT examination was performed using dose optimization techniques as appropriate, variously including the following: *Automated exposure control *Adjustment of mA and/or kV according to patient size (this includes techniques or standardized protocols for targeted exams where dose is matched to indication/reason for exam; i.e. extremities or head) *Use of iterative reconstruction technique DLP: 679 mGy-cm FINDINGS: There is no evidence of acute intracranial hemorrhage or territorial infarction. No abnormal mass-effect or midline shift is seen. Armenta to white matter differentiation is well preserved. No extra-axial fluid collections are identified. The ventricles are normal in size. There is no abnormal attenuation within the brain parenchyma. The osseous structures and soft tissues are normal. Mucosal thickening of the bilateral ethmoid air cells and maxillary sinuses. The mastoid air cells are well-aerated. CT/CT head/brain wo IV con IMPRESSION: No acute intracranial pathology.
--- NOTE | ~2023-10-06 | XR_ITS ---
EXAMINATION: XR CHEST CLINICAL INFORMATION: Ongoing cough. COMPARISON: Chest radiograph dated 09/24/2022. TECHNIQUE: 2 views of the chest were obtained. FINDINGS: The trachea is in normal anatomic position. Heart size is normal. The lungs are clear. There is no pleural effusion or pneumothorax. No acute osseous abnormality. XR/XR chest 2V IMPRESSION: No acute cardiopulmonary disease. Stable appearance of the heart and lungs.
[2023-10-06 18:08] VITALS: BP 151/90; PULSE 78; RESP 18; TEMP 37; O2SAT 95; BMI 33.5
--- NOTE | 2023-10-06 18:08 | ED_ITS ---
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 He denies any recent fevers, chills, patient states he has taken his blood pressure medication for the day, he also states that he has not had an alcoholic drink for several months. Related Data Home Medications Medication Instructions Recorded Confirmed atorvastatin 10 mg tablet 10 mg PO BEDTIME 09/21/22 09/24/22 Previous Rx's Medication Instructions Recorded hydrochlorothiazide 25 mg tablet 25 mg PO DAILY #30 tabs 09/19/22 aspirin 81 mg tablet,delayed 81 mg PO DAILY #30 tabs 09/26/22 release trazodone 50 mg tablet 50 mg PO BEDTIME #30 tabs 01/28/23 amoxicillin 875 mg-potassium 1 tab PO BID #20 tabs 03/02/23 clavulanate 125 mg tablet lorazepam 1 mg tablet (Ativan) 1 mg PO BEDTIME PRN Severe 03/02/23 dizziness #7 tabs meclizine 25 mg tablet (Dramamine 25 mg PO TID PRN dizziness #30 tabs 03/02/23 (meclizine)) Trelegy Ellipta 200 mcg-62.5 1 inh inhalation DAILY 30 days #1 08/19/23 mcg-25 mcg powder for inhalation ea ([id number]) Allergies Allergy/AdvReac Type Severity Reaction Status Date / Time No Known Allergies Allergy Verified 08/18/23 15:22 Review of Systems Review of Systems: Pertinent positives and negatives as stated in [facility] Past Medical History Source: nursing notes reviewed Medical History Hypertension Social History Social History Household Members: None Housing: Apartment Do you presently have visiting nurse or other home services: No Alcohol intake: former Patient Tobacco Use Status: Never used Tobacco e-Cigarette/Vaping Use: Never Used Substance Use Type: Crack/Cocaine Advance Directives: No Advance Directives Information Provided: No service: No Current occupational status: unemployed Physical Exam ED Vital Signs: Vital Signs - 24 hr 10/06/23 18:08 10/06/23 19:46 10/06/23 21:59 Temperature 98.6 F 98.8 F 98.5 F Pulse Rate 78 63 Respiratory Rate 18 18 18 Blood Pressure 151/90 H 134/69 130/62 Pulse Oximetry 95 98 99 Oxygen Delivery Method Room Air Room Air Room Air BMI result Body Mass Index 33.5 VITAL SIGNS: Reviewed. GENERAL: Well developed, well nourished, in no acute distress. HEAD: Normocephalic/atraumatic EYES: PERRLA, EOMI, there is no conjunctival injection, there are no gaze palsies noted EARS: Ext canals without abnormality, TMs non-bulging and non-erythematous NOSE: Nares patent bilateral OROPHARYNX: no oral lesions noted, posterior pharynx clear and non-erythematous without noted tonsillar enlargement/erythema/exudates NECK: Supple, no adenopathy LUNGS: Normal breath sounds. No adventitious sounds or accessory muscle use. SpO2<98> CARDIOVASCULAR: Regular rate and rhythm without noted murmurs ABDOMEN: Soft, non-tender, non-distended with bowel sounds. MUSCULOSKELETAL: No tenderness, deformities, or effusions noted on gross inspection. EXTREMITIES: No cyanosis, clubbing or edema. SKIN: Inspection of the skin reveals no rashes, ulcerations, jaundice, pallor, or petechiae. NEUROLOGIC: Alert and oriented x 4. Strength and sensation to light touch were grossly intact x 4, there is no truncal ataxia, patient is noted to be tremulous but this is of an unclear etiology, patient able to balance on 1 leg calm, there is noted right mouth corner droop, and on pronator evaluation the left extremity is steady but lower at the start point then the compared right. NIH Stroke Scale Internal: Initial- Upon Arrival Time: 18:11 Level of Consciousness: Alert Level of Consciousness Questions: Answers both questions correctly Level of Consciousness Commands: Performs both tasks correctly Best Gaze: Normal Visual: No visual loss Facial Palsy: Normal Motor Arm (Right): No drift Motor Arm (Left): No drift Motor Leg (Right): No drift Motor Leg (Left): No drift Limb Ataxia: Absent Sensory: Normal Best Language: No aphasia Dysarthia: Normal Extinction and Inattention: No abnormality Score: 0 Course Course Course Narrative: This is a rapid medical exam: Additional HPI, ROS, PE not included below will be deferred to primary provider. Patient is a 58-year-old male with history of HTN presenting to the ED with complaint of 5/10 headache and lightheadedness upon waking this morning, eyes feel heavy, cough on and off, feels tremulous. NIHSS 0. Plan: viral swabs, CXR Medical Decision Making Medical Decision Making MDM Narrative: This is a 58-year-old male with history and clinical presentation of longstanding hypertension and at least a recent historical use alcohol and appears to have been seen here previously for facial droop/dizziness as well as dysarthria. 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 On review of the ED visit that demonstrated facial droop almost exactly 1 year ago the description in the provider's note is consistent with my clinical findings today. I reviewed investigations thus far today and chest x-ray does not demonstrate an infiltrate or venous congestion and viral testing is negative. CT of the head is negative and once again by all accounts throughout documentation my clinical findings are consistent with prior findings, patient does not seem to have new complaints or presentation. My interpretation is that patient may be experiencing chronic sequela prior alcohol and drug use that would best be evaluated and worked up in the outpatient setting. Visual acuity was noted to be within normal limits. Differential Diagnosis Differential Diagnoses: The differential diagnosis associated with the presentation includes Please see the discussion above Admission/Observation Consideration of admission/observation: Escalation of care including admission/observation considered Please see the discussion above Lab Data [facility] Lab Attestation statement: I reviewed the patient's lab results. Please see the discussion above Labs: Lab Results 10/06/23 Range/Units 18:44 Influenza Type A (PCR) NEGATIVE (Negative) Influenza Type B (PCR) NEGATIVE (Negative) RSV RNA Qual (PCR) NEGATIVE (Negative) SARS-CoV-2 RNA (RT-PCR) NEGATIVE (Negative) Radiology Impression Discussion of test interpretation with radiology: I have reviewed the radiologist's reading. Radiologist Impression: Please see the discussion above External Record Review External record reviewed: Inpatient record, Office record, Outpatient record, Prior outpatient labs and Prior outpatient radiology Chronic Conditions Patient?s care impacted by: Hypertension Critical Care Time Critical Care Time Critical Care Time: Yes Total Critical Care Time: 45 Attestation: I personally attest to this time spent taking care of the patient. Discharge Plan Discharge Clinical Impression: Facial droop, Dizziness, Tremulousness Patient Disposition: Home, Self-Care Instructions: Lightheadedness (ED), Tremors (ED) Additional Instructions: 1. Reanudar todos los medicamentos caseros seg?n lo recetado. 2. Recomiendo encarecidamente un estudio ambulatorio m?s profundo para rossy inquietudes v?lidas sobre temblores y aturdimiento. 3. Osito un seguimiento con devries m?dico de atenci?n primaria llamando al consultorio a primera hora de la ma?fatemeh y programando ericka romina para ericka reevaluaci?n. 4. Le recomiendo encarecidamente que consulte con un oftalm?logo para realizar m?s investigaciones sobre rossy problemas visuales. Regrese a la brandy de emergencias si los s?ntomas empeoran. 1. Resume all home medications as prescribed. 2. I highly recommend more in-depth outpatient workup for your valid concerns regarding tremulousness and lightheadedness. 3. Please follow-up with your primary care doctor by calling the office 1st thing in the morning and setting up an appointment for re-evaluation. 4. I strongly recommend that you follow-up with an eye doctor for further investigation regarding your visual concerns. Return to the ER for any worsening symptoms. Prescriptions: No Action trazodone 50 mg tablet 50 mg PO BEDTIME Qty: 30 3RF Trelegy Ellipta 200-62.5-25 mcg blister with device 1 inh inhalation DAILY 30 Days Qty: 1 6RF hydrochlorothiazide 25 mg tablet 25 mg PO DAILY Qty: 30 0RF aspirin 81 mg Tablet,Delayed Release (Dr/Ec) 81 mg PO DAILY Qty: 30 0RF meclizine [Dramamine (meclizine)] 25 mg tablet 25 mg PO TID PRN (Reason: dizziness) Qty: 30 0RF lorazepam [Ativan] 1 mg tablet 1 mg PO BEDTIME PRN (Reason: Severe dizziness) Qty: 7 0RF amoxicillin-pot clavulanate 875-125 mg tablet 1 tab PO BID Qty: 20 0RF atorvastatin 10 mg tablet 10 mg PO BEDTIME Print Language: Citizen Of [place]
[2023-10-06 19:30] LABS: Influenza A PCR NEGATIVE (Negative); Influenza B PCR NEGATIVE (Negative); Resp Syncy Virus RNA Qual PCR NEGATIVE (Negative); SARS COV2 PCR INHOUSE NEGATIVE (Negative)
[2023-10-06 19:46] VITALS: BP 134/69; PULSE 63; RESP 18; TEMP 37.1; O2SAT 98
--- NOTE | 2023-10-06 19:55 | MHC.EDTECH ---
Hourly rounds and vitals completed,patient is resting st this time,call stanley in reach
[2023-10-06 21:59] VITALS: BP 130/62; RESP 18; TEMP 36.9; O2SAT 99
[2023-10-06 23:41] VITALS: BP 144/82; PULSE 58; RESP 18; TEMP 36.6; O2SAT 98
== END 2023-10-06 23:45 | disposition home or self-care (01) ==
PROVIDERS: Registered Nurse Emergency; Emergency Provider Student in an Organized Health Care Education/Training Program
DX: R29.810 Facial weakness (principal); R42 Dizziness and giddiness; R25.1 Tremor, unspecified; R05.9 Cough, unspecified; R51.9 Headache, unspecified; Z11.52 Encounter for screening for COVID-19; Z20.822 Contact with and (suspected) exposure to COVID-19
CPT/HCPCS: 0241U; 70450; 71046; 99284

== ENCOUNTER 2023-10-30 15:27 | Emergency (ER) | payer OTHER, SELFPAY ==
--- NOTE | ~2023-10-30 | XR_ITS ---
Examination thoracic and lumbar spine. CLINICAL INDICATION: Back pain and low back pain. No trauma. COMPARISON: Lumbar spine 01/18/2012. FINDINGS: Lumbar spine: There is normal lumbar lordosis. The vertebral heights, alignment and disc heights are normal. No visible acute fracture, dislocation or subluxation. No aggressive lytic or sclerotic process seen. Dorsal spine: There is normal thoracic kyphosis. The vertebral heights and alignment and disc heights are normal. No visible acute fracture, dislocation or subluxation seen. No aggressive lytic or sclerotic process seen. XR/XR thoracic spine 2V IMPRESSION: 1. Unremarkable dorsal and lumbar spine exam. 2. No visible acute fracture, dislocation or subluxation seen in the thoracic or lumbar spine.
--- NOTE | ~2023-10-30 | XR_ITS ---
Examination thoracic and lumbar spine. CLINICAL INDICATION: Back pain and low back pain. No trauma. COMPARISON: Lumbar spine 01/18/2012. FINDINGS: Lumbar spine: There is normal lumbar lordosis. The vertebral heights, alignment and disc heights are normal. No visible acute fracture, dislocation or subluxation. No aggressive lytic or sclerotic process seen. Dorsal spine: There is normal thoracic kyphosis. The vertebral heights and alignment and disc heights are normal. No visible acute fracture, dislocation or subluxation seen. No aggressive lytic or sclerotic process seen. XR/XR lumbar spine 2-3V IMPRESSION: 1. Unremarkable dorsal and lumbar spine exam. 2. No visible acute fracture, dislocation or subluxation seen in the thoracic or lumbar spine.
[2023-10-30 15:44] VITALS: BP 142/75; PULSE 61; RESP 18; TEMP 35.9; O2SAT 98; BMI 34.5
--- NOTE | 2023-10-30 15:44 | ED.GENADULT ---
HPI - General Adult General Chief complaint: Back Pain/Injury Stated complaint: Back pain Time Seen by Provider: 10/30/23 17:11 History of Present Illness HPI narrative: patient complains of low back pain over past 6 months started gradually gradually worsening, pain is worse with movement He denies any chest pain he has no abdominal pain, pain does not radiate He denies any change to bowel or bladder there is no dysuria no frequency no incontinence He denies any history of IV drug use, denies any fever He denies any muscle weakness or loss of sensation no numbness or weakness or tingling Related Data Home Medications Medication Instructions Recorded Confirmed atorvastatin 10 mg tablet 10 mg PO BEDTIME 09/21/22 09/24/22 Previous Rx's Medication Instructions Recorded hydrochlorothiazide 25 mg tablet 25 mg PO DAILY #30 tabs 09/19/22 aspirin 81 mg tablet,delayed 81 mg PO DAILY #30 tabs 09/26/22 release trazodone 50 mg tablet 50 mg PO BEDTIME #30 tabs 01/28/23 amoxicillin 875 mg-potassium 1 tab PO BID #20 tabs 03/02/23 clavulanate 125 mg tablet lorazepam 1 mg tablet (Ativan) 1 mg PO BEDTIME PRN Severe 03/02/23 dizziness #7 tabs meclizine 25 mg tablet (Dramamine 25 mg PO TID PRN dizziness #30 tabs 03/02/23 (meclizine)) Trelegy Ellipta 200 mcg-62.5 1 inh inhalation DAILY 30 days #1 08/19/23 mcg-25 mcg powder for inhalation ea (byfftpwclnu-[id number]) acetaminophen 500 mg tablet 1,000 mg (2 x 500 mg) PO QID PRN 10/30/23 pain #30 tabs cyclobenzaprine 5 mg tablet 5 mg PO TID PRN muscle spasm #10 10/30/23 tabs lidocaine 5 % topical patch 1 patch topical DAILY back pain 10/30/23 #15 ea Allergies Allergy/AdvReac Type Severity Reaction Status Date / Time No Known Allergies Allergy Verified 10/30/23 15:44 [facility] Past Medical History Source: nursing notes reviewed Medical History Hypertension Social History Social History Household Members: None Housing: Apartment Do you presently have visiting nurse or other home services: No Alcohol intake: former Patient Tobacco Use Status: Never used Tobacco e-Cigarette/Vaping Use: Never Used Substance Use Type: Crack/Cocaine Advance Directives: No Advance Directives Information Provided: No service: No Current occupational status: unemployed Physical Exam ED Vital Signs: Vital Signs - 24 hr 10/30/23 15:44 10/30/23 17:11 Temperature 96.7 F L 97.7 F Pulse Rate 61 59 Respiratory Rate 18 16 Blood Pressure 142/75 H 128/80 Pulse Oximetry 98 97 Oxygen Delivery Method Room Air Room Air BMI result Body Mass Index 34.5 general appearance no distress, ambulates easily Head normocephalic atraumatic Neck is supple Respiratory no distress There is no tenderness to the chest wall no pleuritic discomfort Chest is clear to auscultation bilateral Abdomen soft nontender The back there is left lower lumbar paraspinal soft tissue tenderness no focal bony tenderness, skin of the back had no redness or rash and was normal in appearance Pain is easily reproduced with movement Extremities full range motion x4 Neuro motor is 5/5 x4, patient can walk on toes walk on heels squat Sensation is intact and symmetrical, gait and balance are normal Course Course Course Narrative: RME:?58 yo male w/ hx of HTN, athma, CCEILIA here for eval of atraumatic low back pain x6 months. taking aspirin w/o improvement. endorses hx of IVDU, last used 6 mo ago. denies fever, chills, dysuria, hematuria, bowel or bladder incontinence or retention, saddle anesthesia, numbness/tingling/weakness of the lower extremities. Pain is worse with movement. no midline spinous tenderness, warmth or masses. No step-off deformity. Tenderness over thoracic and lumbar paraspinal muscles b/l. imaging ordered. Full HPI, ROS and PE to be performed by the primary ED provider. On exam most of patient's discomfort with movement in his left lower back, there is no neurologic deficit there is no recent injury or fall, he denies any history of IV drug use and denies any fevers no changes to bowel or bladder X-rays of lumbar and thoracic spine were normal Plan would be follow with primary doctor for physical therapy and possible referral for MRI if needed Discharge Plan Discharge Clinical Impression: Back pain Patient Disposition: Home, Self-Care Additional Instructions: the x-rays of your back did not show any worrisome abnormality The best plan is to follow with primary doctor for referral to physical therapy, and if that does not help then often they will do an MRI to see if there is a treatable condition in your back Return to ER any time for leg weakness incontinence fever chest pain abdominal pain any worse condition or any concerns Prescriptions: New cyclobenzaprine 5 mg tablet 5 mg PO TID PRN (Reason: muscle spasm) Qty: 10 0RF acetaminophen 500 mg tablet 1,000 mg PO QID PRN (Reason: pain) Qty: 30 0RF lidocaine 5 % adhesive patch,medicated 1 patch topical DAILY Qty: 15 0RF Rx Instructions: leave on most painful area for up to 12 hrs No Action trazodone 50 mg tablet 50 mg PO BEDTIME Qty: 30 3RF Trelegy Ellipta 200-62.5-25 mcg blister with device 1 inh inhalation DAILY 30 Days Qty: 1 6RF hydrochlorothiazide 25 mg tablet 25 mg PO DAILY Qty: 30 0RF aspirin 81 mg Tablet,Delayed Release (Dr/Ec) 81 mg PO DAILY Qty: 30 0RF meclizine [Dramamine (meclizine)] 25 mg tablet 25 mg PO TID PRN (Reason: dizziness) Qty: 30 0RF lorazepam [Ativan] 1 mg tablet 1 mg PO BEDTIME PRN (Reason: Severe dizziness) Qty: 7 0RF amoxicillin-pot clavulanate 875-125 mg tablet 1 tab PO BID Qty: 20 0RF atorvastatin 10 mg tablet 10 mg PO BEDTIME
[2023-10-30 17:11] VITALS: BP 128/80; PULSE 59; RESP 16; TEMP 36.5; O2SAT 97
[2023-10-30 18:32] VITALS: BP 00/00; PULSE 0; RESP 0; TEMP -17.7; TEMP 0
== END 2023-10-30 18:35 | disposition home or self-care (01) ==
PROVIDERS: Emergency Provider Emergency Medicine
DX: M54.50 Low back pain, unspecified (principal); I10 Essential (primary) hypertension
CPT/HCPCS: 72070; 72100; 99283

== ENCOUNTER 2023-12-31 22:17 | Emergency (ER) | payer OTHER, SELFPAY ==
--- NOTE | ~2023-12-31 | CT_ITS ---
EXAMINATION: Unenhanced CT the head; IV contrast enhanced CT angiography of the head and neck; delayed IV contrast-enhanced CT the head CLINICAL INFORMATION: Persistent dizziness COMPARISON: CT head 10/06/2023 TECHNIQUE: Routine unenhanced CT the head with multiple coronal and sagittal reformatted images; IV contrast enhanced CT angiography of the head and neck with multiple 3-D reformatted angiographic thick section MIPS images processed on the technologist workstation under concurrent supervision; delayed IV contrast-enhanced CT the head. Vascular stenoses are made with reference to the NASCET criteria less otherwise specified. This CT examination was performed using dose optimization techniques as appropriate, variously including the following: *Automated exposure control *Adjustment of mA and/or kV according to patient size (this includes techniques or standardized protocols for targeted exams where dose is matched to indication/reason for exam; i.e. extremities or head) *Use of iterative reconstruction technique Intravenous Contrast: Omnipaque 70 mL DLP: 2605 mGy-cm FINDINGS: Unenhanced and IV contrast and CT of the head: Mild diffuse commensurate prominence of ventricles and sulci is noted and is within expected limits of normal anatomic variation. No intracranial hemorrhage, tumors or acute infarcts visualized. No focal parenchymal lesions of the brain noted. No abnormal enhancement the brain visualized. Normal intraluminal opacification of the visualized major intracranial dural sinuses. Normal appearance of the orbits and globes. No significant opacification of the visualized paranasal sinuses, mastoid air cells and middle ear cavities. CT angiography neck: No stenoses, occlusions or dissections identified within the cervical carotid and vertebral artery systems. CT angiography head: Right vertebral artery is dominant. No intracranial stenoses, occlusions or aneurysms visualized. The visualized lung apices are clear. The thyroid is normal in appearance. No cervical lymphadenopathy identified. Osteophytosis and subchondral sclerosis noted in association with the left mandibular condyle. Mild multilevel anterior endplate osteophytosis is noted within the visualized cervical and thoracic spine. CT/CT angio head neck IMPRESSION: Unenhanced and IV contrast-enhanced CT the head: *No intracranial abnormalities. CT angiography neck: *Normal. Patent cervical carotid and vertebral artery systems. No dissections. CT angiography head: *Normal CT angiography of the head. No intracranial large vessel occlusions. *Mild multilevel chronic spondylosis of the cervical spine.
[2023-12-31 22:25] VITALS: BP 184/101; PULSE 77; RESP 16; TEMP 36.6; O2SAT 97; BMI 34.3
--- NOTE | 2023-12-31 22:30 | ECG_ITS ---
Test Reason : DIZZINESS Blood Pressure : / mmHG Vent. Rate : 072 BPM Atrial Rate : 072 BPM P-R Int : 160 ms QRS Dur : 098 ms QT Int : 394 ms P-R-T Axes : 001 -13 131 degrees QTc Int : 431 ms Normal sinus rhythm Possible Left atrial enlargement Minimal voltage criteria for LVH, may be normal variant ( Haslet product ) Possible Lateral infarct , age undetermined Abnormal ECG When compared with ECG of 02-MAR-2023 13:04, T wave inversion less evident in Lateral leads Referred By: Generic ED Physician Electronically Signed By:Mauricio Mejia
[2023-12-31 22:46] LABS: Basophils Absolute Auto 0.1 X10*3/uL (0.0-0.2); Basophils Percent Auto 0.6 % (0-2); Eosinophils Absolute Auto 0.2 X10*3/uL (0.0-0.4); Eosinophils Percent Auto 2.6 % (0-4); Hematocrit 45.2 % (42.0-52.0); Hemoglobin 15.7 g/dl (14.0-18.0); Imm Gran Abs Auto 0.02 X10*3/uL (0.00-0.03); Imm Gran Pct Auto 0.2 % (0.0-0.4); Lymphocytes Absolute Auto 2.3 X10*3/uL (1.2-4.9); Lymphocytes Percent Auto 26.2 % (20-40); MANUAL DIFF FLAG NO; Mean Corpuscular HGB Conc 34.7 g/dl (31.0-36.0); Mean Corpuscular Hemoglobin 27.8 pg (27.0-33.0); Mean Platelet Volume 10.6 fL (9.4-12.4); Monocytes Absolute Auto 0.7 X10*3/uL (0.1-1.2); Neutrophils Absolute Auto 5.4 x10*3/uL (2.0-8.3); Neutrophils Percent Auto 62.4 % (45-73); Platelet Count 205 X10*3/uL (160-400); Red Blood Count 5.65 X10*6/uL (4.60-5.80); Red Cell Distribution Width 13.9 % (11.0-16.0); White Blood Count 8.7 X10*3/uL (4.8-10.8)
[2023-12-31 22:49] LABS: Glucose, Whole Blood 118 mg/dL (60-115)
[2023-12-31 23:00] LABS: Alanine Aminotransferase 39 U/L (0-40); Albumin Level 4.5 g/dL (3.5-5.0); Alkaline Phosphatase 96 U/L (39-117); Anion Gap 15 (12-20); Aspartate Amino Transferase 25 U/L (5-37); Bilirubin Total 0.3 mg/dL (0.0-1.0); Blood Urea Nitrogen 15 mg/dL (9-16); Calcium 9.1 mg/dL (8.4-10.2); Carbon Dioxide 27 mmol/L (22-29); Chloride 102 mmol/L (96-108); Creatinine Clr Calc Pharmacy 106.9; Estimated Glomerular Filt Rate > 60; Glucose Random 106 mg/dL (60-115); Potassium 3.3 mmol/L (3.3-5.1); Sodium 141 mmol/L (135-145); Total Protein 8.1 g/dL (6.5-8.0)
[2024-01-01 05:50] VITALS: BP 166/83; PULSE 66; RESP 14; TEMP 36.2; O2SAT 98
[2024-01-01] MEDS: Acetaminophen 325 MG TABLET 650 MG PO (05:54)
--- OUTSIDE RECORDS SUMMARY | 2024-01-01 06:23 | XMS_ITS | Continuity of Care Document ---
Author Organization [facility] ter Address [address] [place] [id number]- Care Team Providers Care Neighborhood Aide Name Role Phone Lawrence Ghotra MD Primary Care Physician Encounter [facility] ACCT R [id number] Date(s): 06/12/22 - 07/22/[address] [address]- Attending Physician: Rajesh Tellez MD Admitting Physician: Rajesh Tellez MD Referring Physician: Rajesh Tellez MD Allergies, Adverse Reactions, Alerts No Known Medication Allergies Patient Care team information Care Team Personnel Name: Lawrence Ghotra MD Position: S Primary Care Physician Member Role: PCP Address: Address: [address] [place] [id number] Care Team Related Persons Name: LISA ARIZA
--- OUTSIDE RECORDS SUMMARY | 2024-01-01 06:23 | XMS_ITS | Continuity of Care Document ---
Author Organization [facility] ter Address [address] [place] [id number]- Care Team Providers Care Petrologist Name Role Phone Not on Staff, PCP Primary Care Physician Unavail able Encounter [facility] Date(s): 08/21/22 - 09/30/[address] [address]- Attending Physician: Rajesh Tellez MD Admitting Physician: Rajesh Tellez MD Referring Physician: Rajesh Tellez MD Allergies, Adverse Reactions, Alerts No Known Medication Allergies Medications Fioricet oral capsule 1 capsule, By Mouth, Every 4 hours, PRN as needed, # 12 capsule, 0 Refills, Maintenance, 09/21/22 1:39:00 EST, Capsule, [id number], Partial fill upon patient request if the prescription is for a schedule II opioid drug., 1 capsule By Mouth Audelia... Start Date: 09/21/22 Status: Ordered Problem List Condition Confirmation Course Effective Dates Status Health St atus Informant Obese class I Confirmed Active Patient Care team information Care Team Personnel Name: Not on Staff, PCP Position: S Physician (General Medicine) Member Role: PCP Care Team Related Persons Name: LISA ARIZA Address: home [address] [place] [address]
--- NOTE | 2024-01-01 07:33 | MHC.EDTECH ---
pt placed on unit director
[2024-01-01 07:38] VITALS: BP 154/95; PULSE 56; RESP 16; TEMP 36.5; O2SAT 97
--- NOTE | 2024-01-01 07:45 | PC.NURSE ---
a&ox4. vss and up to date aside from being slightly hypertensive. nsr/sinus clarissa on the patient monitor. HR between 55-60bpm. pt presents to ED w/ 8/10 NYE located across eyebrows. nonradiating. pt also verbalizes feeling dizzy/having change in vision. pt reports seeing mosquitos and dark spots throughout. pt states sx worsen w/ movement and decrease while staying still. otherwise neuros intact. pt able to follow commands appropriately. PERRLA. pt passed nursing swallow eval w/o difficulty. pt states sx did not improve post medication administration in triage. pt resting w/ lights dimmed to promote comfort. no sob/wob noted. respirations even and unlabored. pt waiting to be seen by ED provider. call stanley placed within reach.
--- NOTE | 2024-01-01 09:03 | PC.NURSE ---
visual acuity testing performed - 20/30 across the board. provider aware.
--- NOTE | 2024-01-01 09:05 | MHC.EDTECH ---
Visual acuity test completed 20/30 all around. RN and MD aware
--- NOTE | 2024-01-01 09:40 | ED_ITS ---
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 Related Data Home Medications ?Medication ?Instructions ?Recorded ?Confirmed atorvastatin 10 mg tablet 10 mg PO BEDTIME 09/21/22 09/24/22 Previous Rx's ?Medication ?Instructions ?Recorded hydrochlorothiazide 25 mg tablet 25 mg PO DAILY #30 tabs 09/19/22 aspirin 81 mg tablet,delayed 81 mg PO DAILY #30 tabs 09/26/22 release trazodone 50 mg tablet 50 mg PO BEDTIME #30 tabs 01/28/23 amoxicillin 875 mg-potassium 1 tab PO BID #20 tabs 03/02/23 clavulanate 125 mg tablet lorazepam 1 mg tablet (Ativan) 1 mg PO BEDTIME PRN Severe 03/02/23 dizziness #7 tabs meclizine 25 mg tablet (Dramamine 25 mg PO TID PRN dizziness #30 tabs 03/02/23 (meclizine)) Trelegy Ellipta 200 mcg-62.5 1 inh inhalation DAILY 30 days #1 08/19/23 mcg-25 mcg powder for inhalation ea (ubwmdxgpvqz-djggguugo-[id number]) acetaminophen 500 mg tablet 1,000 mg (2 x 500 mg) PO QID PRN 10/30/23 pain #30 tabs cyclobenzaprine 5 mg tablet 5 mg PO TID PRN muscle spasm #10 10/30/23 tabs lidocaine 5 % topical patch 1 patch topical DAILY back pain 10/30/23 #15 ea Allergies Allergy/AdvReac Type Severity Reaction Status Date / Time No Known Allergies Allergy Verified 12/31/23 22:27 Review of Systems 2 Review of Systems: Pertinent positives and negatives as stated in HPI PMFSH Past Medical History Source: nursing notes reviewed Medical History Hypertension Social History Social History Household Members: None Housing: Apartment Do you presently have visiting nurse or other home services: No Alcohol intake: former Patient Tobacco Use Status: Never used Tobacco Smoked in Last 30 Days: No e-Cigarette/Vaping Use: Never Used Use of substances other than those prescribed or required for medical reasons: No Substance Use Type: Crack/Cocaine Advance Directives: No Advance Directives Information Provided: No Do you have a plan to hurt others: No Plan service: No Current occupational status: unemployed Physical Exam 2 Vital Signs: Vital Signs: Last Vital Signs Temp 98.4 F 01/01/24 10:49 Pulse 68 01/01/24 10:49 Resp 14 01/01/24 10:49 BP 175/89 H 01/01/24 10:49 Pulse Ox 97 01/01/24 10:49 O2 Del Method Room Air 01/01/24 10:49 BMI result Body Mass Index 34.3 VITAL SIGNS: Reviewed. GENERAL: Elevated BMI, Well developed, well nourished, in no acute distress. HEAD: Normocephalic/atraumatic EYES: PERRLA, EOMI EARS: Ext canals without abnormality, TMs non-bulging and non-erythematous NOSE: Nares patent bilateral OROPHARYNX: no oral lesions noted, posterior pharynx clear and non-erythematous without noted tonsillar enlargement/erythema/exudates NECK: Supple, no adenopathy LUNGS: Normal breath sounds. No adventitious sounds or accessory muscle use. SpO2<97> CARDIOVASCULAR: Regular rate and rhythm without noted murmurs, no JVD or lower extremity edema. ABDOMEN: Soft, non-tender, non-distended with bowel sounds. MUSCULOSKELETAL: No tenderness, deformities, or effusions noted on gross inspection. EXTREMITIES: No cyanosis, clubbing or edema. SKIN: Inspection of the skin reveals no rashes NEUROLOGIC: Alert and oriented x 4. Strength and sensation to light touch were grossly intact x 4, no facial asymmetry, no pronator drift, cranial nerves 2-12 are grossly intact. Medications Administered Discontinued Medications Generic Name Dose Route Start Last Admin Trade Name Freq PRN Reason Stop Dose Admin Acetaminophen 650 mg 01/01/24 05:51 01/01/24 05:54 Acetaminophen 325 Mg Tablet PO 01/01/24 05:52 650 mg ONCE ONE Administration Ibuprofen 400 mg 01/01/24 09:45 01/01/24 09:59 Ibuprofen 400 Mg Tablet PO 01/01/24 09:46 400 mg ONCE ONE Administration Iohexol 70 ml 01/01/24 10:35 01/01/24 10:36 Iohexol 350 Mg/Ml 75 Ml Infus..Btl IV 01/01/24 10:36 70 ml ONCE ONE Administration Meclizine HCl 12.5 mg 01/01/24 09:47 01/01/24 10:48 Meclizine Hcl 12.5 Mg Tablet PO 01/01/24 09:48 12.5 mg ONCE ONE Administration Medical Decision Making Medical Decision Making [facility] Narrative: 58-year-old male with history and clinical presentation, DDX: Hypertensive urgency, no focal findings to suggest intracranial abnormality, patient on review of documentation is been seen several times for the dizziness, unclear whether or not this may be associated with prior alcohol use and possible vitamin B12 deficiency, I do not find any evaluation of this nature previously and so have added a B12 as patient has not followed up with his primary care doctor since his last evaluation by me in September. Visual acuity-20/30. 0946: Informed by nursing that patient is crying due to feeling dizzy. I reviewed all investigations and hematologic indices are grossly within normal limits without any noted derangements. Chemistry indices are negative for REED/electrolyte or liver enzyme derangements and vitamin B12-467 with folate- 12.7. CT of the head noncontrast as well as with angio of head and neck vessels negative for any acute intracranial abnormalities noted. Patient also received 25 mg of meclizine. Patient was provided with morning dose of antihypertensives, ambulated once again and is otherwise discharged with strict instructions to follow-up with his primary care doctor and that he will need to call his primary care doctor's office for the appointment. Differential Diagnosis Differential Diagnoses: The differential diagnosis associated with the presentation includes Please see the discussion above Admission/Observation Consideration of admission/observation: Escalation of care including admission/observation considered Please see the discussion above Lab Data [facility] Lab Attestation statement: I reviewed the patient's lab results. Please see the discussion above 12/31/23 22:38 12/31/23 22:38 Labs: Lab Results 12/31/23 12/31/23 01/01/24 Range/Units 22:38 22:45 09:52 WBC 8.7 (4.8-10.8) X10*3/uL RBC 5.65 (4.60-5.80) X10*6/uL Hgb 15.7 (14.0-18.0) g/dl Hct 45.2 (42.0-52.0) % MCV 80.0 (80.0-98.0) fL MCH 27.8 (27.0-33.0) pg MCHC 34.7 (31.0-36.0) g/dl RDW 13.9 (11.0-16.0) % Plt Count 205 (160-400) X10*3/uL MPV 10.6 (9.4-12.4) fL Immature Gran % (Auto) 0.2 (0.0-0.4) % Neut % (Auto) 62.4 (45-73) % Lymph % (Auto) 26.2 (20-40) % [place] % (Auto) 8.0 (2-11) % Eos % (Auto) 2.6 (0-4) % Baso % (Auto) 0.6 (0-2) % Lymph # (Auto) 2.3 (1.2-4.9) X10*3/uL [place] # (Auto) 0.7 (0.1-1.2) X10*3/uL Eos # (Auto) 0.2 (0.0-0.4) X10*3/uL Baso # (Auto) 0.1 (0.0-0.2) X10*3/uL Abs Immat Gran (auto) 0.02 (0.00-0.03) X10*3/uL Absolute Neuts (auto) 5.4 (2.0-8.3) x10*3/uL Absolute Nucleated RBC 0.000 (0.0-0.012) X10*3/uL Nucleated RBC % (auto) 0.0 (0.0-0.2) /100WBC Sodium 141 (135-145) mmol/L Potassium 3.3 (3.3-5.1) mmol/L Chloride 102 (96-108) mmol/L Carbon Dioxide 27 (22-29) mmol/L Anion Gap 15 (12-20) BUN 15 (9-16) mg/dL Creatinine 0.98 (0.5-1.4) mg/dL Estim Creat Clear Calc 106.9 Estimated GFR > 60 POC Glucose 118 H (60-115) mg/dL Random Glucose 106 (60-115) mg/dL Calcium 9.1 (8.4-10.2) mg/dL Total Bilirubin 0.3 (0.0-1.0) mg/dL AST 25 (5-37) U/L ALT 39 (0-40) U/L Alkaline Phosphatase 96 (39-117) U/L Total Protein 8.1 H (6.5-8.0) g/dL Albumin 4.5 (3.5-5.0) g/dL Vitamin B12 467 (200-900) pg/mL Folate 12.7 (> or = 4.0) ng/mL Independent Interpretation I performed an independent interpretation of an: EKG Interpretation: Normal sinus rhythm, HR-72, no STEMI, IN/QRS/QTC is within normal limits. Radiology Impression Discussion of test interpretation with radiology: I have reviewed the radiologist's reading. Radiologist Impression: Please see the discussion above External Record Review External record reviewed: Outpatient record, Prior outpatient labs and Prior outpatient radiology Chronic Conditions Patient?s care impacted by: Hypertension Critical Care Time Critical Care Time Critical Care Time: Yes Total Critical Care Time: 45 Attestation: I personally attest to this time spent taking care of the patient. Discharge Plan Discharge Clinical Impression: Dizziness, Vertigo Patient Disposition: Home, Self-Care Instructions: Lightheadedness (ED), Vertigo (ED) Additional Instructions: Go see your primary care doctor. Please call the office on Tuesday. You need to be further evaluated and worked up in the outpatient setting. Prescriptions: No Action trazodone 50 mg tablet 50 mg PO BEDTIME Qty: 30 3RF Trelegy Ellipta 200-62.5-25 mcg blister with device 1 inh inhalation DAILY 30 Days Qty: 1 6RF hydrochlorothiazide 25 mg tablet 25 mg PO DAILY Qty: 30 0RF aspirin 81 mg Tablet,Delayed Release (Dr/Ec) 81 mg PO DAILY Qty: 30 0RF cyclobenzaprine 5 mg tablet 5 mg PO TID PRN (Reason: muscle spasm) Qty: 10 0RF acetaminophen 500 mg tablet 1,000 mg PO QID PRN (Reason: pain) Qty: 30 0RF lidocaine 5 % adhesive patch,medicated 1 patch topical DAILY Qty: 15 0RF Rx Instructions: leave on most painful area for up to 12 hrs meclizine [Dramamine (meclizine)] 25 mg tablet 25 mg PO TID PRN (Reason: dizziness) Qty: 30 0RF lorazepam [Ativan] 1 mg tablet 1 mg PO BEDTIME PRN (Reason: Severe dizziness) Qty: 7 0RF amoxicillin-pot clavulanate 875-125 mg tablet 1 tab PO BID Qty: 20 0RF atorvastatin 10 mg tablet 10 mg PO BEDTIME Print Language: Upper Sorbian
[2024-01-01] MEDS: Ibuprofen 400 MG TABLET PO (09:59)
--- NOTE | 2024-01-01 10:00 | PC.NURSE ---
pt tearful d/t increase in sx. ambulation trial performed. pt verbalizing difficulty ambulating/feeling dizzy/off balance. strong steady gait noted. no use of assistive devices needed. MD notified/aware. 20gIV placed in left AC for CTA to be completed. medication administered per provider order. effectiveness pending. pharmacy also called d/t missing medication - will administer when able. respirations remain even and unlabored. plan of care ongoing. call stanley placed within reach.
--- NOTE | 2024-01-01 10:06 | PC.NURSE ---
pt to CT at this time.
[2024-01-01] MEDS: iohexoL 350 MG/ML 75 ML INFUS..BTL 70 ML IV (10:36)
[2024-01-01] MEDS: Meclizine HCl 12.5 MG TABLET PO (10:48)
[2024-01-01 10:49] VITALS: BP 175/89; PULSE 68; RESP 14; TEMP 36.9; O2SAT 97
--- NOTE | 2024-01-01 10:49 | PC.NURSE ---
pt verbalizing NYE decreased post medication administration. medication just now delivered from pharmacy/administered. CTA results pending. plan of care ongoing.
[2024-01-01 11:13] LABS: Folate 12.7 ng/mL (> or = 4.0); Vitamin B12 467 pg/mL (200-900)
[2024-01-01 11:42] VITALS: BP 175/89
[2024-01-01] MEDS: amLODIPine Besylate 5 MG TABLET PO (11:42)
[2024-01-01] MEDS: hydroCHLOROthiazide 25 MG TABLET PO (11:42)
--- NOTE | 2024-01-01 11:43 | PC.NURSE ---
pt noted to be hypertensive. provider notified/aware. home BP medication administered per provider order. effectiveness pending.
[2024-01-01 12:09] VITALS: BP 175/89; PULSE 68; RESP 14; TEMP 36.9; O2SAT 97
== END 2024-01-01 12:10 | disposition home or self-care (01) ==
PROVIDERS: Emergency Medicine; Emergency Provider Student in an Organized Health Care Education/Training Program
DX: R42 Dizziness and giddiness (principal); I10 Essential (primary) hypertension; Z79.899 Other long term (current) drug therapy
CPT/HCPCS: 36415; 70496; 70498; 80053; 82607; 82746; 82947; 85025; 93005; 99284; 99285; Q9967

== ENCOUNTER → 2023-12-31 22:30 | Outpatient (BNV) | payer OTHER, SELFPAY | PROVIDERS: Emergency Provider Student in an Organized Health Care Education/Training Program; Visit Provider Internal Medicine Cardiovascular Disease | DX: R94.31 Abnormal electrocardiogram [ECG] [EKG] (principal) | CPT/HCPCS: 93010 ==

== ENCOUNTER 2024-01-27 11:35 | Outpatient (REF) | payer MEDICAID, SELFPAY ==
[2024-01-27 13:14] LABS: MANUAL DIFF FLAG NO
[2024-01-27 13:20] LABS: Basophils Percent Auto 0.6 % (0-2); Eosinophils Absolute Auto 0.2 X10*3/uL (0.0-0.4); Eosinophils Percent Auto 2.9 % (0-4); Hematocrit 44.9 % (42.0-52.0); Hemoglobin 15.1 g/dl (14.0-18.0); Imm Gran Abs Auto 0.01 X10*3/uL (0.00-0.03); Imm Gran Pct Auto 0.2 % (0.0-0.4); Lymphocytes Percent Auto 32.1 % (20-40); Mean Corpuscular HGB Conc 33.6 g/dl (31.0-36.0); Mean Corpuscular Hemoglobin 27.2 pg (27.0-33.0); Mean Corpuscular Volume 80.9 fL (80.0-98.0); Mean Platelet Volume 10.8 fL (9.4-12.4); Monocytes Absolute Auto 0.5 X10*3/uL (0.1-1.2); Monocytes Percent Auto 7.9 % (2-11); Neutrophils Absolute Auto 3.5 x10*3/uL (2.0-8.3); Neutrophils Percent Auto 56.3 % (45-73); Platelet Count 225 X10*3/uL (160-400); Red Blood Count 5.55 X10*6/uL (4.60-5.80); Red Cell Distribution Width 14.3 % (11.0-16.0); White Blood Count 6.2 X10*3/uL (4.8-10.8)
[2024-01-27 13:48] LABS: Estimated Average Glucose 114 mg/dL; Hemoglobin A1c % 5.6 % (<6.0)
[2024-01-27 13:50] LABS: Creatinine Urine 388.06 mg/dL; Microalbum/Creatinine Ratio Ur 32.7 ug/mg cr (<30)
[2024-01-27 14:02] LABS: Alanine Aminotransferase 42 U/L (0-40); Albumin Level 4.3 g/dL (3.5-5.0); Alkaline Phosphatase 86 U/L (39-117); Anion Gap 13 (12-20); Aspartate Amino Transferase 28 U/L (5-37); Blood Urea Nitrogen 9 mg/dL (9-16); Calcium 9.1 mg/dL (8.4-10.2); Carbon Dioxide 28 mmol/L (22-29); Chloride 106 mmol/L (96-108); Cholesterol 259 mg/dL (<200); Estimated Glomerular Filt Rate > 60; Glucose Random 103 mg/dL (60-115); HDL Cholesterol 42 mg/dL (>40); LDL Cholesterol Calculated 192 mg/dL (<100); Magnesium 2.3 mg/dL (1.6-2.6); Potassium 3.7 mmol/L (3.3-5.1); Sodium 143 mmol/L (135-145); Total Protein 7.6 g/dL (6.5-8.0); Triglycerides 125 mg/dL (<150)
[2024-01-27 14:22] LABS: TSH reflex Free T4 1.33 uIU/mL (0.32-4.0); Vitamin D 25-OH Total 33.4 ng/mL (>30)
[2024-01-27 14:23] LABS: Folate 12.3 ng/mL (> or = 4.0); Vitamin B12 442 pg/mL (200-900)
[2024-01-29 21:59] LABS: RPR Rapid Plasma Reagin REACTIVE (NON-REACTIVE)
[2024-01-30 08:57] LABS: HBS Num1 0.42 mIU/mL (0-7.99); HBc Num1 0.09 S/CO (0.00-0.79); HBsAGNum1 0.29 S/CO (0.00-0.99); HIV AB/AG Nonreactive (Nonreactive); HIV Num 1 0.04 S/CO (0.00-0.99); Hepatitis B Core Antibody Nonreactive (Nonreactive); Hepatitis B Surface Antigen Negative (Negative); ~Hepatitis B Surface Antibody NONREACTIVE (Nonreactive)
[2024-01-30 15:29] LABS: HCV Log PCR <1.18 NOT DETECTED Log IU/mL (NOT DETECTED); HepC Viral Load <15 NOT DETECTED IU/mL (NOT DETECTED)
== END 2024-01-27 11:36 | disposition home or self-care (01) ==
LOC: HO.HHCL 11:35
PROVIDERS: Visit Provider Registered Nurse
DX: R42 Dizziness and giddiness (principal)
CPT/HCPCS: 36415; 80053; 80061; 82043; 82306; 82570; 82607; 82746; 83036; 83735; 84443; 85025; 86592; 86593; 86704; 86706; 87340; 87389; 87522

== ENCOUNTER 2024-02-08 11:58 | Outpatient (REF) | payer OTHER, SELFPAY ==
[2024-02-08 14:08] LABS: Syphilis Screen Nonreactive (Nonreactive)
[2024-02-10 08:44] LABS: RPR Rapid Plasma Reagin NON-REACTIVE (NON-REACTIVE)
== END 2024-02-08 11:59 | disposition home or self-care (01) ==
LOC: HO.HHCL 11:58
PROVIDERS: Visit Provider Registered Nurse
DX: A53.0 Latent syphilis, unspecified as early or late (principal)
CPT/HCPCS: 36415; 86592; 86780

== ENCOUNTER 2024-03-02 14:15 | Outpatient (REF) | payer OTHER, SELFPAY ==
[2024-03-02 15:54] LABS: MANUAL DIFF FLAG NO
[2024-03-02 16:01] LABS: Basophils Absolute Auto 0.1 X10*3/uL (0.0-0.2); Basophils Percent Auto 0.7 % (0-2); Eosinophils Absolute Auto 0.2 X10*3/uL (0.0-0.4); Eosinophils Percent Auto 2.2 % (0-4); Hemoglobin 15.9 g/dl (14.0-18.0); Imm Gran Abs Auto 0.03 X10*3/uL (0.00-0.03); Imm Gran Pct Auto 0.3 % (0.0-0.4); Lymphocytes Absolute Auto 2.6 X10*3/uL (1.2-4.9); Lymphocytes Percent Auto 30.1 % (20-40); Mean Corpuscular HGB Conc 33.8 g/dl (31.0-36.0); Mean Corpuscular Hemoglobin 27.7 pg (27.0-33.0); Mean Corpuscular Volume 81.7 fL (80.0-98.0); Mean Platelet Volume 10.9 fL (9.4-12.4); Monocytes Absolute Auto 0.6 X10*3/uL (0.1-1.2); Monocytes Percent Auto 7.3 % (2-11); Neutrophils Absolute Auto 5.1 x10*3/uL (2.0-8.3); Neutrophils Percent Auto 59.4 % (45-73); Platelet Count 233 X10*3/uL (160-400); Red Blood Count 5.75 X10*6/uL (4.60-5.80); Red Cell Distribution Width 13.3 % (11.0-16.0); White Blood Count 8.6 X10*3/uL (4.8-10.8)
[2024-03-02 16:26] LABS: Alanine Aminotransferase 54 U/L (0-40); Albumin Level 4.7 g/dL (3.5-5.0); Alkaline Phosphatase 97 U/L (39-117); Anion Gap 13 (12-20); Aspartate Amino Transferase 26 U/L (5-37); Bilirubin Total 0.7 mg/dL (0.0-1.0); Blood Urea Nitrogen 10 mg/dL (9-16); Calcium 9.8 mg/dL (8.4-10.2); Carbon Dioxide 31 mmol/L (22-29); Chloride 101 mmol/L (96-108); Estimated Glomerular Filt Rate > 60; Glucose Random 97 mg/dL (60-115); Potassium 3.3 mmol/L (3.3-5.1); Sodium 142 mmol/L (135-145); Total Protein 8.3 g/dL (6.5-8.0)
[2024-03-02 16:32] LABS: TSH reflex Free T4 1.18 uIU/mL (0.32-4.0)
[2024-03-04 10:39] LABS: RPR Rapid Plasma Reagin NON-REACTIVE (NON-REACTIVE)
== END 2024-03-02 14:16 | disposition home or self-care (01) ==
LOC: HO.HHCL 14:15
PROVIDERS: Visit Provider Nurse Practitioner Family
DX: R25.1 Tremor, unspecified (principal); R42 Dizziness and giddiness
CPT/HCPCS: 36415; 80053; 84443; 85025; 86592

== ENCOUNTER 2024-03-17 21:02 | Emergency (ER) | payer MEDICAID, SELFPAY ==
--- NOTE | 2024-03-17 | ECG_ITS ---
Test Reason : DIZZINESS Blood Pressure : / mmHG Vent. Rate : 057 BPM Atrial Rate : 057 BPM P-R Int : 162 ms QRS Dur : 088 ms QT Int : 422 ms P-R-T Axes : -02 -13 145 degrees QTc Int : [address] & T wave abnormality, consider lateral ischemia Abnormal ECG When compared with ECG of 31-DEC-2023 22:33, No significant change was found Referred By: Generic ED Physician Electronically Signed By:ROD BLUE MD
--- NOTE | ~2024-03-17 | CT_ITS ---
EXAMINATION: CT HEAD WITHOUT CONTRAST CLINICAL INFORMATION: Headache. COMPARISON: 10/06/2023 TECHNIQUE: Contiguous axial imaging was performed from the skull base to vertex without intravenous administration of contrast. This CT examination was performed using dose optimization techniques as appropriate, variously including the following: *Automated exposure control *Adjustment of mA and/or kV according to patient size (this includes techniques or standardized protocols for targeted exams where dose is matched to indication/reason for exam; i.e. extremities or head) *Use of iterative reconstruction technique DLP: 721 mGy-cm FINDINGS: The lateral, third and fourth ventricles are normally outlined. The cortical sulci and basal cisterns are normally outlined as well. There is no acute territorial defect, hemorrhage or midline shift. The extra-axial spaces are unremarkable. Calvarium/scalp: Intact. Maxillofacial sinuses and mastoids: Clear as visualized. CT/CT head/brain wo IV con IMPRESSION: No acute intracranial pathology.
[2024-03-17 21:06] VITALS: BP 153/84; PULSE 60; RESP 18; TEMP 36.7; O2SAT 96; BMI 30.7
[2024-03-17 21:43] LABS: MANUAL DIFF FLAG NO
[2024-03-17 21:45] LABS: Basophils Absolute Auto 0.1 X10*3/uL (0.0-0.2); Basophils Percent Auto 0.5 % (0-2); Eosinophils Absolute Auto 0.3 X10*3/uL (0.0-0.4); Eosinophils Percent Auto 2.7 % (0-4); Hematocrit 44.7 % (42.0-52.0); Hemoglobin 15.2 g/dl (14.0-18.0); Imm Gran Abs Auto 0.02 X10*3/uL (0.00-0.03); Imm Gran Pct Auto 0.2 % (0.0-0.4); Lymphocytes Absolute Auto 2.9 X10*3/uL (1.2-4.9); Lymphocytes Percent Auto 31.5 % (20-40); Mean Corpuscular Hemoglobin 27.4 pg (27.0-33.0); Mean Corpuscular Volume 80.5 fL (80.0-98.0); Mean Platelet Volume 10.6 fL (9.4-12.4); Monocytes Absolute Auto 0.9 X10*3/uL (0.1-1.2); Monocytes Percent Auto 9.9 % (2-11); Neutrophils Percent Auto 55.2 % (45-73); Platelet Count 216 X10*3/uL (160-400); Red Blood Count 5.55 X10*6/uL (4.60-5.80); Red Cell Distribution Width 13.5 % (11.0-16.0); White Blood Count 9.1 X10*3/uL (4.8-10.8)
[2024-03-17 22:07] LABS: Alanine Aminotransferase 52 U/L (0-40); Albumin Level 4.4 g/dL (3.5-5.0); Alkaline Phosphatase 93 U/L (39-117); Anion Gap 13 (12-20); Aspartate Amino Transferase 26 U/L (5-37); Bilirubin Total 0.4 mg/dL (0.0-1.0); Blood Urea Nitrogen 14 mg/dL (9-16); Calcium 9.3 mg/dL (8.4-10.2); Carbon Dioxide 28 mmol/L (22-29); Chloride 103 mmol/L (96-108); Estimated Glomerular Filt Rate > 60; Glucose Random 98 mg/dL (60-115); Magnesium 2.2 mg/dL (1.6-2.6); Potassium 3.3 mmol/L (3.3-5.1); Sodium 141 mmol/L (135-145); Total Protein 7.6 g/dL (6.5-8.0)
[2024-03-17 22:15] LABS: Troponin-I High Sensitivity 13.4 ng/L (<3.5-35.0)
[2024-03-17 22:35] LABS: Influenza A PCR NEGATIVE (Negative); Influenza B PCR NEGATIVE (Negative); Resp Syncy Virus RNA Qual PCR NEGATIVE (Negative); SARS COV2 PCR INHOUSE NEGATIVE (Negative)
--- NOTE | 2024-03-18 00:08 | ED_ITS ---
HPI - Dizziness General Chief Complaint: Dizziness Stated Complaint: headaches Time Seen by Provider: 03/17/24 23:17 Source: patient, RN notes reviewed and old records reviewed Mode of arrival: ambulatory History of Present Illness ED Provider: Justine Yepez PA-C HPI Narrative: 58-year-old male with a past medical history of HLD, HTN, presenting to the ED complaining of acute on chronic worsening headache, right-sided facial droop, speech difficulty, and dizziness/off balance over the past 2 days. Reports symptoms have been present over the past 9 months however worsening. Also reports blurry vision and SOB. Denies vision loss, chest pain, abdominal pain, nausea/vomiting, fever, recent illness. Denies taking anticoagulation. Headache not maximal at onset. Related Data Home Medications ?Medication ?Instructions ?Recorded ?Confirmed atorvastatin 10 mg tablet 10 mg PO BEDTIME 09/21/22 09/24/22 Previous Rx's ?Medication ?Instructions ?Recorded hydrochlorothiazide 25 mg tablet 25 mg PO DAILY #30 tabs 09/19/22 aspirin 81 mg tablet,delayed 81 mg PO DAILY #30 tabs 09/26/22 release trazodone 50 mg tablet 50 mg PO BEDTIME #30 tabs 01/28/23 amoxicillin 875 mg-potassium 1 tab PO BID #20 tabs 03/02/23 clavulanate 125 mg tablet lorazepam 1 mg tablet (Ativan) 1 mg PO BEDTIME PRN Severe 03/02/23 dizziness #7 tabs meclizine 25 mg tablet (Dramamine 25 mg PO TID PRN dizziness #30 tabs 03/02/23 (meclizine)) Trelegy Ellipta 200 mcg-62.5 1 inh inhalation DAILY 30 days #1 08/19/23 mcg-25 mcg powder for inhalation ea (sgjqeghaywg-huarusozx-egkltins) acetaminophen 500 mg tablet 1,000 mg (2 x 500 mg) PO QID PRN 10/30/23 pain #30 tabs cyclobenzaprine 5 mg tablet 5 mg PO TID PRN muscle spasm #10 10/30/23 tabs lidocaine 5 % topical patch 1 patch topical DAILY back pain 10/30/23 #15 ea Allergies Allergy/AdvReac Type Severity Reaction Status Date / Time No Known Allergies Allergy Verified 03/17/24 21:14 Review of Systems 2 Review of Systems: Constitutional: No Fever, No Chills ENT/Mouth: No Ear Pain, No Nasal Congestion, No sore throat, No Rhinorrhea, No Swallowing Difficulty Cardiovascular: No Chest Pain, + SOB Respiratory: No Cough, No Sputum Gastrointestinal: No Nausea, No Vomiting, No Abdominal pain Genitourinary: No Dysuria, No Urinary Frequency, No Hematuria, No Flank Pain Musculoskeletal: No joint pain, No Myalgias, No Joint Swelling Skin: No Skin Lesions, No rash Neuro: No Weakness, No Numbness, No Paresthesias, + facial droop, + headache, + dizziness Yes all other systems are reviewed and are negative Constitutional: Constitutional: Reports as per HPI Neurologic: Denies Abnormal speech present [facility] Past Medical History Attestation statement: The following information was validated with the patient. Source: old records reviewed Medical History Hypertension Social History Social History Household Members: None Housing: Apartment Do you presently have visiting nurse or other home services: No Alcohol intake: former Patient Tobacco Use Status: Never used Tobacco e-Cigarette/Vaping Use: Never Used Substance Use Type: Crack/Cocaine Advance Directives: No Advance Directives Information Provided: No service: No Current occupational status: unemployed Physical Exam 2 Vital Signs: Vital Signs: Last Vital Signs Temp 98.9 F 03/18/24 00:24 Pulse 60 03/18/24 00:41 Resp 16 03/18/24 00:24 BP 135/85 03/18/24 00:41 Pulse Ox 98 03/18/24 00:24 O2 Del Method Room Air 03/18/24 00:24 BMI result Body Mass Index 30.7 Const: General: cooperative, healthy appearing and no acute distress O rientation/consciousness: patient oriented x3 Limitations: no limitations HEENT: Head: Yes normal to inspection and Yes atraumatic Ears: hearing grossly normal bilaterally General nose exam: Normal external nose present Eyes: General: appearance normal, both eyes and all related structures P upils: Equal, round and reactive pupils present EOM: EOMs intact bilaterally Neck: Neck: Yes normal visual inspection and Yes no meningeal signs Resp: Effort & Inspection: normal respiratory effort and no respiratory distress Auscultation: clear to auscultation bilaterally Cardio: Rate: regular rate Heart sounds: S1 normal heart sound present and S2 normal heart sound present GI: Inspection: Yes normal to inspection Palpation (GI): Soft to palpation, nontender, no guarding and not rigid : General: Yes no CVA tenderness Back/Spine/Pelvis: Back: no CVA tenderness Skin: Rashes: no rashes Wounds: no wounds Neuro: Other: + right-sided facial droop General: patient oriented x3, tone normal, moves all extremities, no meningeal signs and no focal motor deficits Cranial nerves: Yes Equal, round and reactive pupils present, Yes Bilaterally intact EOM present and Yes Midline tongue present Cognition (Neuro): normal cognition Speech: No Abnormal speech present Gait exam (Neuro): Normal gait present Motor exam (neuro): 5/5 motor strength present throughout, Pronator motor function not present and no tremor noted Coordination: vlkxpn-uf-aexk test normal Romberg Test: N egative Extrem: General: Yes normal to inspection Course Course Course Narrative: -no leukocytosis. Troponin 13.4 > will obtain 3 hour repeat -COVID/flu/RSV negative CT head/brain wo IV con IMPRESSION: No acute intracranial pathology. > case discussed with hospitalist, Dr. Paige, with patient's symptoms being present for 9 months, patient does not meet inpatient criteria. Will recommend outpatient MRI and neurology follow-up -troponin without significant rise, SC unlikely. Results discussed with patient including worrisome signs and symptoms and strict return precautions, and when to return to the emergency department. They verbalized understanding and feel safe for discharge at this time. Medications Administered Discontinued Medications Generic Name Dose Route Start Last Admin Trade Name Ludwin PRN Reason Stop Dose Admin Acetaminophen 975 mg 03/18/24 00:13 03/18/24 00:22 Acetaminophen 325 Mg Tablet PO 03/18/24 00:14 975 mg ONCE ONE Administration Meclizine HCl 25 mg 03/18/24 00:13 03/18/24 00:22 Meclizine Hcl 25 Mg Tablet PO 03/18/24 00:14 25 mg ONCE ONE Administration Medical Decision Making Medical Decision Making MDM Narrative: 58-year-old male with a past medical history of HLD, HTN, presenting to the ED complaining of acute on chronic worsening headache, right-sided facial droop, speech difficulty, and dizziness/off balance over the past 2 days. On exam vital signs stable, NAD, nontoxic appearing, right-sided facial droop appreciated, speech WNL, no ataxia. Concern for subacute CVA vs ? Lyme or viral illness. Lower suspicion for Hernandez's palsy or ACS. Rule out orthostasis. Plan: EKG, labs, UA, orthostatics, head CT. Patient with admission to our facility in September for similar symptoms, brain MRI not performed. Has had other visits to ED for similar symptoms. Please refer to course for remaining clinical decision making, interpretation of labs/imaging results, and discussions with consultants and/or family members. Differential Diagnosis Differential Diagnoses: The differential diagnosis associated with the presentation includes As above Admission/Observation Consideration of admission/observation: Escalation of care including admission/observation considered Lab Data MDM Lab Attestation statement: I reviewed the patient's lab results. 03/17/24 21:37 03/17/24 21:37 Labs: Lab Results 03/17/24 03/18/24 Range/Units 21:37 01:32 WBC 9.1 (4.8-10.8) X10*3/uL RBC 5.55 (4.60-5.80) X10*6/uL Hgb 15.2 (14.0-18.0) g/dl Hct 44.7 (42.0-52.0) % MCV 80.5 (80.0-98.0) fL MCH 27.4 (27.0-33.0) pg MCHC 34.0 (31.0-36.0) g/dl RDW 13.5 (11.0-16.0) % Plt Count 216 (160-400) X10*3/uL MPV 10.6 (9.4-12.4) fL Immature Gran % (Auto) 0.2 (0.0-0.4) % Neut % (Auto) 55.2 (45-73) % Lymph % (Auto) 31.5 (20-40) % [place] % (Auto) 9.9 (2-11) % Eos % (Auto) 2.7 (0-4) % Baso % (Auto) 0.5 (0-2) % Lymph # (Auto) 2.9 (1.2-4.9) X10*3/uL [place] # (Auto) 0.9 (0.1-1.2) X10*3/uL Eos # (Auto) 0.3 (0.0-0.4) X10*3/uL Baso # (Auto) 0.1 (0.0-0.2) X10*3/uL Abs Immat Gran (auto) 0.02 (0.00-0.03) X10*3/uL Absolute Neuts (auto) 5.0 (2.0-8.3) x10*3/uL Absolute Nucleated RBC 0.000 (0.0-0.012) X10*3/uL Nucleated RBC % (auto) 0.0 (0.0-0.2) /100WBC Sodium 141 (135-145) mmol/L Potassium 3.3 (3.3-5.1) mmol/L Chloride 103 (96-108) mmol/L Carbon Dioxide 28 (22-29) mmol/L Anion Gap 13 (12-20) BUN 14 (9-16) mg/dL Creatinine 1.14 (0.5-1.4) mg/dL Estim Creat Clear Calc 87.0 Estimated GFR > 60 Random Glucose 98 (60-115) mg/dL Calcium 9.3 (8.4-10.2) mg/dL Magnesium 2.2 (1.6-2.6) mg/dL Total Bilirubin 0.4 (0.0-1.0) mg/dL AST 26 (5-37) U/L ALT 52 H (0-40) U/L Alkaline Phosphatase 93 (39-117) U/L Troponin I High Sens 13.4 17.4 (<3.5-35.0) ng/L Total Protein 7.6 (6.5-8.0) g/dL Albumin 4.4 (3.5-5.0) g/dL Influenza Type A (PCR) NEGATIVE (Negative) Influenza Type B (PCR) NEGATIVE (Negative) RSV RNA Qual (PCR) NEGATIVE (Negative) SARS-CoV-2 RNA (RT-PCR) NEGATIVE (Negative) Independent Interpretation I performed an independent interpretation of an: EKG and CT Scan Radiology Impression Discussion of test interpretation with radiology: I have reviewed the radiologist's reading. Independent Historian Clinical information obtained from an independent historian. History obtained from or confirmed by: Spouse External Record Review External record reviewed: Inpatient record, Office record, Outpatient record, Prior outpatient labs, Prior outpatient radiology, Primary care record and Outside ED record Tests considered The following testing was considered but not selected: As above Chronic Conditions Patient?s care impacted by: Hypertension and Other Discharge Plan Discharge Clinical Impression: Dizziness Patient Disposition: Home, Self-Care Instructions: Dizziness (ED) Additional Instructions: You need to follow-up with Neurology and obtain an outpatient MRI If her symptoms persist or worsen/you have weakness, persistent or worsening headache, nausea/vomiting or vision loss return to the ED immediately Prescriptions: No Action trazodone 50 mg tablet 50 mg PO BEDTIME Qty: 30 3RF Trelegy Ellipta 200-62.5-25 mcg blister with device 1 inh inhalation DAILY 30 Days Qty: 1 6RF hydrochlorothiazide 25 mg tablet 25 mg PO DAILY Qty: 30 0RF aspirin 81 mg Tablet,Delayed Release (Dr/Ec) 81 mg PO DAILY Qty: 30 0RF cyclobenzaprine 5 mg tablet 5 mg PO TID PRN (Reason: muscle spasm) Qty: 10 0RF acetaminophen 500 mg tablet 1,000 mg PO QID PRN (Reason: pain) Qty: 30 0RF lidocaine 5 % adhesive patch,medicated 1 patch topical DAILY Qty: 15 0RF Rx Instructions: leave on most painful area for up to 12 hrs meclizine [Dramamine (meclizine)] 25 mg tablet 25 mg PO TID PRN (Reason: dizziness) Qty: 30 0RF lorazepam [Ativan] 1 mg tablet 1 mg PO BEDTIME PRN (Reason: Severe dizziness) Qty: 7 0RF amoxicillin-pot clavulanate 875-125 mg tablet 1 tab PO BID Qty: 20 0RF atorvastatin 10 mg tablet 10 mg PO BEDTIME Ref[place]: [facility] [place]Provider Group] Name,MD Vinicio [Primary Care Provider] - 3 days Print Language: Anguillan
[2024-03-18] MEDS: Meclizine HCl 25 MG TABLET PO (00:22)
[2024-03-18] MEDS: Acetaminophen 325 MG TABLET 975 MG PO (00:22)
[2024-03-18 00:24] VITALS: BP 155/82; PULSE 56; RESP 16; TEMP 37.2; O2SAT 98
[2024-03-18 00:40] VITALS: BP 143/88; PULSE 53
[2024-03-18 00:41] VITALS: BP 135/85; BP 150/84; PULSE 54; PULSE 60
[2024-03-18 01:57] LABS: Troponin-I High Sensitivity 17.4 ng/L (<3.5-35.0)
[2024-03-18 02:35] VITALS: BP 135/85; PULSE 60; RESP 18; TEMP 37.1; O2SAT 100
[2024-03-19 20:59] LABS: Lyme Abs Screen <0.90 index
== END 2024-03-18 02:36 | disposition home or self-care (01) ==
PROVIDERS: Physician Assistant; Emergency Provider Emergency Medicine Emergency Medical Services; PCP Internal Medicine Geriatric Medicine
DX: R42 Dizziness and giddiness (principal); R06.02 Shortness of breath; R00.1 Bradycardia, unspecified; R29.810 Facial weakness; R47.89 Other speech disturbances; I10 Essential (primary) hypertension; E78.5 Hyperlipidemia, unspecified; J45.909 Unspecified asthma, uncomplicated; Z03.818 Encounter for observation for suspected exposure to other biological agents ruled out; Z79.02 Long term (current) use of antithrombotics/antiplatelets; Z79.82 Long term (current) use of aspirin; Z79.899 Other long term (current) drug therapy
CPT/HCPCS: 0241U; 36415; 70450; 80053; 83735; 84484; 85025; 86617; 86618; 93005; 99284

== ENCOUNTER → 2024-03-17 21:25 | Outpatient (BNV) | payer MEDICAID, SELFPAY | PROVIDERS: Emergency Provider Emergency Medicine Emergency Medical Services; PCP Internal Medicine Geriatric Medicine; Visit Provider Internal Medicine Cardiovascular Disease | DX: R94.31 Abnormal electrocardiogram [ECG] [EKG] (principal) | CPT/HCPCS: 93010 ==

== ENCOUNTER 2024-04-23 10:54 | Outpatient (REF) | payer MEDICAID, SELFPAY ==
[2024-04-23 14:23] LABS: Alanine Aminotransferase 44 U/L (0-40); Albumin Level 4.3 g/dL (3.5-5.0); Alkaline Phosphatase 95 U/L (39-117); Anion Gap 14 (12-20); Aspartate Amino Transferase 24 U/L (5-37); Bilirubin Direct 0.3 mg/dL (0.0-0.5); Bilirubin Total 0.7 mg/dL (0.0-1.0); Blood Urea Nitrogen 10 mg/dL (9-16); Calcium 9.3 mg/dL (8.4-10.2); Carbon Dioxide 29 mmol/L (22-29); Chloride 103 mmol/L (96-108); Cholesterol 132 mg/dL (<200); Estimated Glomerular Filt Rate > 60; Glucose Random 105 mg/dL (60-115); HDL Cholesterol 30 mg/dL (>40); LDL Cholesterol Calculated 78 mg/dL (<100); Potassium 3.6 mmol/L (3.3-5.1); Sodium 142 mmol/L (135-145); Total Protein 7.6 g/dL (6.5-8.0); Triglycerides 123 mg/dL (<150)
== END 2024-04-23 10:55 | disposition home or self-care (01) ==
LOC: HO.HHCL 10:54
PROVIDERS: Visit Provider Internal Medicine Geriatric Medicine
DX: I10 Essential (primary) hypertension (principal); E78.2 Mixed hyperlipidemia
CPT/HCPCS: 36415; 80048; 80061; 80076

== ENCOUNTER 2024-07-19 12:41 | Outpatient (REF) | payer MEDICAID, SELFPAY | END 2024-07-19 12:42 | disposition home or self-care (01) | LOC: HO.LAB 12:41 | PROVIDERS: PCP Internal Medicine Geriatric Medicine; Visit Provider Registered Nurse | DX: G40.909 Epilepsy, unspecified, not intractable, without status epilepticus (principal) | CPT/HCPCS: 36415; 80175 ==

== ENCOUNTER 2024-08-07 09:31 | Outpatient (REF) | payer MEDICAID, SELFPAY ==
[2024-08-07 11:37] LABS: Anion Gap 11 (12-20); Blood Urea Nitrogen 10 mg/dL (9-16); Calcium 9.1 mg/dL (8.4-10.2); Carbon Dioxide 31 mmol/L (22-29); Chloride 104 mmol/L (96-108); Estimated Glomerular Filt Rate > 60; Glucose Random 104 mg/dL (60-115); Potassium 3.1 mmol/L (3.3-5.1); Sodium 143 mmol/L (135-145)
== END 2024-08-07 09:32 | disposition home or self-care (01) ==
LOC: HO.HHCL 09:31
PROVIDERS: Visit Provider Internal Medicine Geriatric Medicine
DX: I10 Essential (primary) hypertension (principal)
CPT/HCPCS: 36415; 80048

== ENCOUNTER 2024-09-13 15:15 | Emergency (ER) | payer MEDICAID, SELFPAY ==
[2024-09-13 15:43] VITALS: BP 113/72; PULSE 56; RESP 20; TEMP 36.6; O2SAT 98; BMI 30.7
[2024-09-13] MEDS: Amoxicillin 500 MG CAPSULE PO (15:54)
--- NOTE | 2024-09-13 16:27 | ED_ITS ---
HPI - Ear Problem General Chief complaint: Ear Problems Stated complaint: bilateral ear pain Time Seen by Provider: 09/13/24 15:45 Source: patient Limitations: language barrier History of Present Illness ED Provider: Lilia Quinn PA-C HPI Narrative: 59-year-old male presents with bilateral ear pain x5 days. Patient describes his discomfort as pressure, right greater than left. Denies fever. Related Data Home Medications ?Medication ?Instructions ?Recorded ?Confirmed atorvastatin 10 mg tablet 10 mg PO BEDTIME 09/21/22 09/24/22 Previous Rx's ?Medication ?Instructions ?Recorded hydrochlorothiazide 25 mg tablet 25 mg PO DAILY #30 tabs 09/19/22 aspirin 81 mg tablet,delayed 81 mg PO DAILY #30 tabs 09/26/22 release trazodone 50 mg tablet 50 mg PO BEDTIME #30 tabs 01/28/23 amoxicillin 875 mg-potassium 1 tab PO BID #20 tabs 03/02/23 clavulanate 125 mg tablet lorazepam 1 mg tablet (Ativan) 1 mg PO BEDTIME PRN Severe 03/02/23 dizziness #7 tabs meclizine 25 mg tablet (Dramamine 25 mg PO TID PRN dizziness #30 tabs 03/02/23 (meclizine)) Trelegy Ellipta 200 mcg-62.5 1 inh inhalation DAILY 30 days #1 08/19/23 mcg-25 mcg powder for inhalation ea (uxrlrxtntdb-efexsrrzo-szydgqpg) acetaminophen 500 mg tablet 1,000 mg (2 x 500 mg) PO QID PRN 10/30/23 pain #30 tabs cyclobenzaprine 5 mg tablet 5 mg PO TID PRN muscle spasm #10 10/30/23 tabs lidocaine 5 % topical patch 1 patch topical DAILY back pain 10/30/23 #15 ea amoxicillin 500 mg capsule 500 mg PO BID #19 caps 09/13/24 Allergies Allergy/AdvReac Type Severity Reaction Status Date / Time No Known Allergies Allergy Verified 09/13/24 15:44 Review of Systems Review of Systems: Yes all other systems are reviewed and are negative Constitutional: Constitutional: Denies fatigue and Denies fever(s) ENT: Reports otalgia Cardiovascular: Cardiovascular: Denies chest pain and Denies dyspnea Respiratory: Respiratory: Denies cough and Denies dyspnea Gastrointestinal: Gastrointestinal: Denies nausea and Denies vomiting Endocrine: Endocrine: Denies fatigue [facility] Past Medical History Attestation statement: The following information was validated with the patient. Medical History Hypertension Social History Social History Household Members: None Housing: Apartment Do you presently have visiting nurse or other home services: No Alcohol intake: former Patient Tobacco Use Status: Never used Tobacco e-Cigarette/Vaping Use: Never Used Substance Use Type: Crack/Cocaine Advance Directives: No Advance Directives Information Provided: No Do you have a plan to hurt others: No Plan service: No Current occupational status: unemployed Physical Exam Vital Signs: Vital Signs: Last Vital Signs Temp 98 F 09/13/24 15:43 Pulse 56 09/13/24 15:43 Resp 20 09/13/24 15:43 BP 113/72 09/13/24 15:43 Pulse Ox 98 09/13/24 15:43 O2 Del Method Room Air 09/13/24 15:43 BMI result Body Mass Index 30.7 Const: Other: Alert Orientation/consciousness: patient oriented x3 HEENT: Other: Left TM is mildly opaque, no overlying erythema or exudate, no tragal tenderness, no erythema or exudate of the external ear canal. The right TM is completely opaque with overlying erythema, can not appreciate the bony landmarks, mild tragal tenderness, no erythema or exudate within the external ear canal Resp: Effort & Inspection: normal respiratory effort Cardio: Other: Normal peripheral perfusion Skin: Other: Warm dry no rash Neuro: General: patient oriented x3, gait normal, no focal motor deficits and CN's II-XI intact bilaterally Psych: Other: Cooperative Medications Administered Discontinued Medications Generic Name Dose Route Start Last Admin Trade Name Freq PRN Reason Stop Dose Admin Amoxicillin 500 mg 09/13/24 15:46 09/13/24 15:54 Amoxicillin 500 Mg Capsule PO 09/13/24 15:47 500 mg ONCE ONE Administration Medical Decision Making Medical Decision Making [facility] Narrative: 59-year-old male presents with bilateral ear pain x5 days. Patient describes his discomfort as pressure, right greater than left. Denies fever. With differential diagnoses: Serous otitis, otitis media, otitis externa, mastoiditis Plan: The patient has evidence of bilateral serous otitis, with otitis media on the right. We will treat with the amoxicillin. He can follow up with his primary care provider. No indication for labs or imaging. Discharge Plan Discharge Clinical Impression: Acute otitis media, right Patient Disposition: Home, Self-Care Instructions: Ear Infection (ED) Additional Instructions: You have an infection of the right middle ear. See home care instructions. Take the amoxicillin as directed, complete all of the antibiotic. You have fluid in both ears, you should also be using fjhv-uvk-woppdbh Zyrtec, daily, for the next few weeks, this will alleviate your congestion. Follow up with your primary care provider as needed. Prescriptions: New amoxicillin 500 mg capsule 500 mg PO BID Qty: 19 0RF No Action trazodone 50 mg tablet 50 mg PO BEDTIME Qty: 30 3RF Trelegy Ellipta 200-62.5-25 mcg blister with device 1 inh inhalation DAILY 30 Days Qty: 1 6RF hydrochlorothiazide 25 mg tablet 25 mg PO DAILY Qty: 30 0RF aspirin 81 mg Tablet,Delayed Release (Dr/Ec) 81 mg PO DAILY Qty: 30 0RF cyclobenzaprine 5 mg tablet 5 mg PO TID PRN (Reason: muscle spasm) Qty: 10 0RF acetaminophen 500 mg tablet 1,000 mg PO QID PRN (Reason: pain) Qty: 30 0RF lidocaine 5 % adhesive patch,medicated 1 patch topical DAILY Qty: 15 0RF Rx Instructions: leave on most painful area for up to 12 hrs meclizine [Dramamine (meclizine)] 25 mg tablet 25 mg PO TID PRN (Reason: dizziness) Qty: 30 0RF lorazepam [Ativan] 1 mg tablet 1 mg PO BEDTIME PRN (Reason: Severe dizziness) Qty: 7 0RF amoxicillin-pot clavulanate 875-125 mg tablet 1 tab PO BID Qty: 20 0RF atorvastatin 10 mg tablet 10 mg PO BEDTIME Print Language: Bermudian
[2024-09-13 17:05] VITALS: BP 113/72; PULSE 56; RESP 20; TEMP 36.6; O2SAT 98
== END 2024-09-13 17:06 | disposition home or self-care (01) ==
PROVIDERS: Emergency Provider Emergency Medicine; PCP Internal Medicine Geriatric Medicine
DX: H92.03 Otalgia, bilateral (principal); H66.91 Otitis media, unspecified, right ear; Z79.899 Other long term (current) drug therapy
CPT/HCPCS: 99282; 99283

== ENCOUNTER 2025-02-11 15:00 | Outpatient (RCR) | payer MEDICAID, SELFPAY ==
[2025-01-07 14:00] VITALS: BP 101/59; PULSE 71
== END 2025-03-13 14:37 | disposition home or self-care (01) ==
LOC: HO.PT 15:00
PROVIDERS: PCP Internal Medicine Geriatric Medicine; Visit Provider Registered Nurse
DX: G20.C Parkinsonism, unspecified (principal)
CPT/HCPCS: 97110; 97112; 97162; 97530

== ENCOUNTER 2025-03-25 14:58 | Outpatient (AMB) | payer MEDICAID, SELFPAY ==
--- NOTE | 2025-03-25 15:23 | MHC.OFFVIS ---
Vital Signs 03/25/25 15:23 Height 5 ft 11 in Intake Visit Reasons: 3 month PD Planner Scheduler Required: Yes Planner Scheduler Name: #[id number] Allergies No Known Allergies Allergy (Verified 03/25/25 15:23) Medication List - Last Reconciled 03/25/25 by Kimberli Jaime CNP acetaminophen 1,000 mg (2 x 500 mg) PO QID PRN amoxicillin 500 mg PO BID amoxicillin-pot clavulanate 875-125 mg 1 tab PO BID aspirin 81 mg PO DAILY atorvastatin 10 mg PO BEDTIME carbidopa-levodopa 25-100 mg (Sinemet) 0.5 tabs PO TID cyclobenzaprine 5 mg PO TID PRN hydrochlorothiazide 25 mg PO DAILY lamotrigine 100 mg PO BID lidocaine 5% 1 patch topical DAILY lorazepam (Ativan) 1 mg PO BEDTIME PRN meclizine (Dramamine (meclizine)) 25 mg PO TID PRN trazodone 50 mg PO BEDTIME Trelegy Ellipta 200-62.5-25 mcg (muccsiuhyrt-qxerxubgq-ilyrvxtu) 1 inh inhalation DAILY 30 days NS HPI Comments Details: 59-year-old RH man with childhood h/o seizure disorder, h/o alcohol and cocaine abuse, 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 EEG revealed left temporal sharps. He fell from bed and hit head on ground about one month ago and again about 2 weeks ago. He was momentarily confused after. No tongue bite or incontinence. He was having some buzzing to right ear that comes and goes, lasting up to 3 days that started after second fall out of bed. No increased headaches or dizziness. He still has some occasional dizziness and unsteadiness. He does not have a bed partner, and is unsure if he kicks or acts out dreams. He completed PT. He was walking with cane and no further falls. Tremor was okay with medication. [facility] Medical History (Updated 03/25/25 @ 15:40 by Kimberli Jaime CNP) Seizure disorder H/O cocaine abuse Insomnia Depression with anxiety Hypertension Social History Household Members: None Housing: Apartment Do you presently have visiting nurse or other home services: No Alcohol intake: former Patient Tobacco Use Status: Never used Tobacco e-Cigarette/Vaping Use: Never Used Substance Use Type: Crack/Cocaine service: No Current occupational status: unemployed Review of Systems Const Denies chills, Denies daytime sleepiness, Reports difficulty sleeping, Denies fatigue, Denies fever(s), Denies frequent falls, Denies headache(s), Denies increased appetite, Denies poor appetite, Denies snoring, Denies weakness, Denies weight gain and Denies weight loss Eyes Denies loss of vision ENT Denies vertigo, Reports dizziness and Denies headache(s) Card Denies chest pain at rest, Denies chest pain with activity, Denies syncope, Denies leg edema and Denies palpitations Resp Denies snoring GI Denies constipation, Denies heartburn, Denies diarrhea and Denies nausea Denies urinary frequency, Denies urinary incontinence and Denies urinary urgency Musc Reports abnormal gait (balance difficulty), Denies numbness and Denies tingling Skin/Breast Denies dry skin and Denies rash Neuro Reports abnormal gait (balance difficulty), Denies vertigo, Reports dizziness, Denies syncope, Denies frequent falls, Denies headache(s), Reports lack of coordination, Denies loss of vision, Reports memory loss, Denies numbness, Denies restless legs, Denies seizure-like activity, Denies tingling, Denies paresthesias, Reports tremor(s) and Denies weakness Psych Reports anxiety, Denies depression, Denies auditory hallucinations, Reports memory loss, Denies visual hallucinations and Denies suicidal ideation Endo Denies fatigue and Denies palpitations Physical Exam Const Other: General Appearance:? normal, in no acute distress. Skin:? no rashes, no significant birthmarks. Heart:? S1, S2 normal, no murmurs. Lungs:? clear anteriorly and posteriorly. Extremities:? no edema. Psych:? alert, oriented, cognitive function intact, cooperative with exam. Neuro Other: Mental Status:?Normal attention, orientation, memory and affect.? Cranial Nerves:?Pupils are equal, round and reactive to light. External occular muscles are intact. Visual mcrae are full. Face is symmetrical. Facial sensations are normal. Tongue is midline. Palate elevates symmetrically. Shoulder shrugging is normal. Hearing to bedside conversation is normal. Sensory Exam:?....? Coordination:?No ataxia,?no titubation.? Gait Exam: With cane. Forward leaning posture, decreased arm swing on left. Extrapyramidal System:?Decreased facial expression and blinking. Mild cogwheeling rigidity in L hand. Pronator Drift:?Not present.? Involuntary Movements:?Fine tremors of the outstretched hands seen, L > R. Speech:?Normal.? Results Reviewed Results Reviewed: EEG at off in Aug 2024: WNL EEG at off in February 2024: L temp sharps CT [place] [facility]: Mild cerebellar atrophy, mild pontine atrophy CT[place] brain and [place] [facility] [place] Lamotrigine level in Jul 2024: ok (9.0) Assessment & Plan Assessment & Plan (1) Seizure disorder: Code(s): G40.909 - Epilepsy, unspecified, not intractable, without status epilepticus Category: Medical Plan: Continue lamotrigine 100mg 1 tablet twice a day. (2) Parkinsonism: Code(s): G20.C - Parkinsonism, unspecified Category: Medical Qualifiers: Parkinsonism type: unspecified Qualified Code(s): G20.C - Parkinsonism, unspecified Plan: Continue carbidopa-levodopa 25-100mg 1/2 tablet three times a day. (3) Concussion: Code(s): S06.0XAA - Concussion with loss of consciousness status unknown, initial encounter Category: Medical Qualifiers: Encounter type: initial encounter Loss of consciousness presence/duration: without LOC Qualified Code(s): S06.0X0A - Concussion without loss of consciousness, initial encounter Plan: Reviewed testing ordered. Plan Meds tried: Lamotrigine Orders: Orders MR head/brain wo con Today G20.C - Parkinsonism, unspecified, G40.909 - Epilepsy, unspecified, not intractable, without status epilepticus, S06.0X0A - Concussion without loss of consciousness, initial encounter Coding Level of Care Code Est Pt Level 4 (94706) Diagnoses Seizure disorder G40.909 Parkinsonism, unspecified Parkinsonism type G20.C Parkinsonism type: unspecified Concussion without loss of consciousness, initial encounter S06.0X0A Encounter type: initial encounter Loss of consciousness presence/duration: without LOC
== END 2025-03-25 15:44 | disposition home or self-care (01) ==
LOC: HO.HSM 14:58
PROVIDERS: PCP Internal Medicine Geriatric Medicine; Referring Provider Internal Medicine; Visit Provider Registered Nurse
DX: G40.909 Epilepsy, unspecified, not intractable, without status epilepticus (principal); G20.C Parkinsonism, unspecified; S06.0X0A Concussion without loss of consciousness, initial encounter
CPT/HCPCS: 99214

== ENCOUNTER → 2025-03-25 14:58 | Outpatient (BNVA) | payer MEDICAID, SELFPAY | PROVIDERS: PCP Internal Medicine Geriatric Medicine; Referring Provider Internal Medicine; Visit Provider Registered Nurse | DX: S06.0X0A Concussion without loss of consciousness, initial encounter (principal); G20.C Parkinsonism, unspecified; G40.909 Epilepsy, unspecified, not intractable, without status epilepticus; W06.XXXA Fall from bed, initial encounter; Y93.9 Activity, unspecified; Y92.9 Unspecified place or not applicable; Y99.9 Unspecified external cause status | CPT/HCPCS: 99212 ==

== ENCOUNTER → 2025-04-05 17:37 | Outpatient (BNV) | payer MEDICAID, SELFPAY | PROVIDERS: PCP Internal Medicine Geriatric Medicine; Visit Provider Radiology Diagnostic Radiology | DX: S06.0X0A Concussion without loss of consciousness, initial encounter (principal); G31.9 Degenerative disease of nervous system, unspecified | CPT/HCPCS: 70551 ==

== ENCOUNTER 2025-04-05 17:40 | Outpatient (REF) | payer MEDICAID, SELFPAY ==
--- NOTE | ~2025-04-05 | MR_ITS ---
EXAMINATION: MR BRAIN WITHOUT CONTRAST CLINICAL INFORMATION: Concussion without loss of consciousness. COMPARISON: Correlated to CT dated March 18, 2024. TECHNIQUE: MRI of the brain was obtained using routine sequences without contrast. FINDINGS: Patient's motion artifact. No restricted diffusion. No acute intracranial hemorrhage, mass effect, midline shift, hydrocephalus or herniation. Armenta-white matter differentiation is normal. Bilateral, a few, scattered, nonspecific, less than 3 mm deep white matter hyperintense T2 FLAIR signal involving centrum semiovale and marsh radiata. Flow-void signal within the main cerebral vessels is normal. There is a dominant left-sided transverse sigmoid venous sinus. Prominence of the extra-axial CSF spaces, cerebral sulci and ventricles. Sellar/suprasellar region demonstrated no signal abnormality or gross masses. Craniocervical junction demonstrates normal position of the cerebellar tonsils. No signal abnormality or gross asymmetric volume loss in the hippocampi. MR/MR head/brain wo con IMPRESSION: No acute brain abnormality. Global cerebral atrophy. Electronically signed by: Aditya Campos MD 04/08/2025 12:21 PM EDT
--- OUTSIDE RECORDS SUMMARY | 2025-04-05 17:55 | XMS_ITS | Encounter Summary ---
Author Organization [employer] Address [address] [facility] 7t [place] [address] Care Team Providers Care Resawyer Name Role Phone Name, Vinicio BOUCHER Primary Care Provider [phone] Radha Shea PharmD Unavailable Encounter Details Date Type Department Care Team ([facility] st Contact Info) Description 08/14/2024 Orders Only [facility] [address] [place], [place] [phone] ProviderKristi MD Social History Tobacco Use Types Packs/Day Years Used Date Smoking Tobacco: Never Smokeless Tobacco: Never Alcohol Use Standard Drinks/Week Comments Never 0 (1 standard drink = 0.6 oz pur e alcohol) Depression Answer Date Recorded Patient Health Questionnaire-9 Score 14 03/13/2024 Patient Health Questionnaire-9 Score 14 03/13/2024 Last PHQ-9: Questionnaire Data Not on file 0 03/13/2024 Housing Stability Answer Date Recorded What is your housing situation today? I have alessandra willett 03/05/[address] you li ve. Do you have problems with any of the following? None of the above 03/05/2024 Food Insecurity Answer Date Recorded Within the past 12 months, y ou worried that your food would run out before you got money to buy more: Often true 03/05/2024 Within the past 12 months,th e food you bought just didn't last and you didn't have enough money to get more: Often true Transportation Answer Date Recorded In the past 12 months, has l ack of transportation kept you from medical appts, meetings, work or from getting things needed for daily living? No 03/05/2024 Utilities Answer Date Recorded In the past 12 months, has t he electric, gas, oil or water company threatened to shut off services in your home? No 03/05/2024 Depression Answer Date Recorded Patient Health Questionnaire-2 Score 4 03/13/2024 Internet Access Answer Date Recorded Internet Access Q1 Yes 04/06/2024 Internet Access Q2 Not on file 04/06/2024 Sex and Gender Information Value Date Recorded Sex Assigned at Male 06/07/2022 10:39 AM EDT Legal Sex Male 10:39 AM EDT Gender Identity Male 06/07/2022 10:39 AM EDT Sexual Orientation Straight 06/07/2022 10 :39 AM EDT documented as of this encounter Plan of Treatment Upcoming Encounters Date Type Department Care Team (Late st Contact Info) Description 06/10/2025 10:00 AM EST Office Visit [facility] [address] [place] [phone] Name, MD Vinicio [address] [place] [address] documented as of this encounter Procedures Procedure Name Priority Date/Time Associated Diagnosis Comments COLONOSCOPY Routine 09/26/2023 1:52 PM EST documented in this encounter Results * Colonoscopy (09/26/2023 1:52 PM EST) Anatomical Region Laterality Modality Endoscopy us Historical Provider ENDOSCOPY PROCEDURE ORDER RADHA Final Result documented in this encounter Visit Diagnoses Not on filedocumented in this encounter Additional Health Concerns Assessment Noted Time PHQ-9 Depression Total Score: 14 024 9:56 AM EDT documented as of this encounter Care Teams Resawyer Relationship Specialty Start Date End Date Name, MD Vinicio [address] [place] [address] PCP - General Internal Medicine 03/13/24 Radha Shea PharmD [address] [place] [phone] Pharmacist Internal Medicine 04/12/24 12/17/24 documented as of this encounter
--- OUTSIDE RECORDS SUMMARY | 2025-04-05 17:55 | XMS_ITS | Clinical Summary ---
Author Organization [employer] Address [address] [facility] 7t [place] [address] Care Team Providers Care Wrap Turner Name Role Phone Name, Vinicio BOUCHER Primary Care Provider [phone] Allergies No known active allergies Medications * This document contains information received from the source organization and may not represent a complete record from that organization. Blood Pressure kitIndications:[place] alexandra hypertension Use to check blood pressure once daily and when symptomatic 1 kit 01/26/20 24 Active melatonin 5 MG tablet Take 1 tablet by mouth at bedtime. 05/14/20 24 Active lamoTRIgine (LaMICtal) 100 MG tablet Take 100 mg by mouth 2 times daily. 05/18/20 24 Active QUEtiapine (SEROquel) 100 MG tablet Take 100 mg by mouth at bedtime. 07/09/20 24 Active sertraline (Zoloft) 100 MG tablet Take 150 mg by mouth Once per day. Active propranolol LA (Inderal LA) 60 MG 24 hr capsuleIndications :Hypertension, unspecified type Take 1 capsule (60 mg) by mouth Once per day. Do not crush, chew, or split. 90 capsule 3 07/16/20 24 025 Active losartan-hydroCHLO ROthiazide (Hyzaar) 100-12.5 MG tabletIndications: Hypertension, unspecified type Take 1 tablet by mouth Once per day. 90 tablet 3 07/16/20 24 Active atorvastatin (Lipitor) 40 MG tabletIndications: Mixed hyperlipidemia TAKE 1 TABLET BY MOUTH AT BEDTIME 90 tablet 1 02/14/20 25 Active Active Problems Problem Noted Date Diagnosed Date Chronic static encephalopathy 12/07/2024 History of seizures as a child 12/07/2024 Anxiety 03/20/2024 Asthma 03/20/2024 Back pain 03/20/2024 Insomnia 03/20/2024 History of pneumonia 03/20/2024 Severe episode of recurrent major depressive disorder, without psychotic features 03/13/2024 Obstructive sleep apnea 01/26/2024 Assessment & Plan (01/26/2024 12:27 PM EDT): Followed by [facility] - Dr. Tellez Reports that he received CPAP approx Aug 2023, but has not been able to use. 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 Vertigo due to brain injury 01/26/2024 Assessment & Plan (03/19/2024 6:09 PM EDT): Acute on chronic issue, outside CT reviewed, no clear change to symptoms, encouraged hydration, slow position change, follow up with neuro Labs as ordered below for source of change Assessment & Plan (01/26/2024 12:28 PM EDT): -Chronic issue for patient, who reports multiple previous ED evals w/o known culprit/origin -Check lab work, referral to vestibular rehab -Follow up precautions Tremor 01/26/2024 Assessment & Plan (01/26/2024 12:31 PM EDT): Intermittent tremor at rest in BUE and BLE x approx 3 years, gradually worsening per pt Referral to Neurology sent on 01/26/24 Primary hypertension 09/28/2022 Assessment & Plan (01/26/2024 12:30 PM EDT): - Elevated in office, previously well controlled on med regimen, but in need of refill - Cont hydrochlorothiazide 25mg daily - BP kit sent to the pharmacy - Record home BP readings and bring to nurse visit in 2 weeks. If still elevated, consider addition of ACEi/ARB as long as no contraindications on lab work Mixed hyperlipidemia 09/28/2022 Assessment & Plan (01/26/2024 12:28 PM EDT): Re-start atorvastatin 10mg nightly Check FLP Obesity (BMI 30-39.9) 01/08/2022 History of cocaine use 01/08/2022 History of drug abuse 01/08/2022 Resolved Problems Problem Noted Date Diagnosed Date Resolved Date REED (acute kidney injury) 03/20/2024 Atypical chest pain 03/20/2024 12/08/19 25 Benign paroxysmal positional vertigo 03/20/2024 12/07/2024 Dysarthria 03/20/2024 12/07/2024 Dyspnea on exertion 03/20/2024 12/08/19 25 Facial droop 03/20/2024 12/07/2024 Generalized weakness 03/20/2024 024 Morbid obesity 03/20/2024 03/20/2024 Sinusitis nasal 03/20/2024 03/20/2024 Vertigo 03/20/2024 03/20/2024 CECILIA (obstructive sleep apnea) 03/20/2024 03/20/2024 Hypertension 03/20/2024 12/07/2024 Tremulousness 03/20/2024 03/20/2024 Healthcare maintenance 01/26/202403/20 Assessment & Plan (01/26/2024 12:24 PM EDT): - Dental in [place] - Reports colonoscopy in 2023 through [facility], was advised for repeat in 5 years (request records to confirm) Encounters Date Type Department Care Team Description 04/02/2025 Telephone [facility] [address] [place] [phone] Vinicio Mehta MD Housing Form (I called the patient regarding a reasonable accommodation request, from [employer]. He needs to state what accommodation he is requesting. I reached his voicemail, and left a message asking him to return my call at ext [phone].) 03/20/2025 11:15 AM EDT Office Visit [facility] [address] [place] [address] [phone] Vinicio Mehta MD Primary hypertension (Primary Dx); Decreased hearing, unspecified laterality 03/20/2025 Travel 02/20/2025 Patient Outreach [facility] [address] [place] [phone] Vinicio Mehta MD Care Coordination (CHW outreach for SDOH housing search-LVM ) 02/20/2025 Telephone [facility] [address] [place], [place] [phone] Name, MD Vinicio 02/12/2025 Refill [facility] [address] [place] [address] Name, MD Vinicio Mixed hyperlipidemia from Last 3 Months Immunizations Immunization Administration Dates Next Due Hep B, adult 08/14/2024,03/13/2024,02/08/2024 Influenza Injectable Quadriv alant Preservative Free IIV4 MDCK 04/21/2023 Influenza, seasonal, injecta ble, preservative free 05/10/2024 Pfizer Covid-19 Vaccine 12+ 05/10/2024 Pfizer Covid-19 Vaccine 12+ Bivalent 09/29/2022 Pneumococcal Conjugate PCV 20 08/07/2024 Td (adult), 5 Lf tetanus tox oid, preservative free, adsorbed 07/24/2012 Tdap 04/21/2023 Zoster, Recombinant 06/08/2024,04/12/2024 Family History Medical History Relation Name Comments Diabetes Brother pace maker Brother Cancer Father Cancer Mother Diabetes Mother Hypertension Mother Diabetes Sister 1 Hypertension Sister 1 Stroke Sister 1 Colon polyps Sister 2 Relation Name Status Comments Brother Father Mother Sister 1 Sister 2 Alive Social History Tobacco Use Types Packs/Day Years Used Date Smoking Tobacco: Never Smokeless Tobacco: Never Tobacco Cessation:Counseling Given: Not Answered Alcohol Use Standard Drinks/Week Comments Never 0 (1 standard drink = 0.6 oz pur e alcohol) Depression Answer Date Recorded Patient Health Questionnaire-9 Score 16 03/20/2025 Patient Health Questionnaire-9 Score 16 03/20/2025 Last PHQ-9: Questionnaire Data Not on file 0 03/20/2025 Housing Stability Answer Date Recorded What is your housing situation today? I have alessandra tamie 03/20/[address] you li ve. Do you have problems with any of the following? None of the above 03/20/2025 Food Insecurity Answer Date Recorded Within the past 12 months, y ou worried that your food would run out before you got money to buy more: Never True 03/20/2025 Within the past 12 months,th e food you bought just didn't last and you didn't have enough money to get more: Never True Transportation Answer Date Recorded In the past 12 months, has l ack of transportation kept you from medical appts, meetings, work or from getting things needed for daily living? No 03/20/2025 Utilities Answer Date Recorded In the past 12 months, has t he electric, gas, oil or water company threatened to shut off services in your home? No 03/20/2025 Depression Answer Date Recorded Patient Health Questionnaire-2 Score 4 03/20/2025 Internet Access Answer Date Recorded Internet Access Q1 Yes 03/20/2025 Internet Access Q2 Not on file 03/20/2025 Sex and Gender Information Value Date Recorded Sex Assigned at Male 06/07/2022 10:39 AM EDT Legal Sex Male 10:39 AM EDT Gender Identity Male 06/07/2022 10:39 AM EDT Sexual Orientation Straight 06/07/2022 10 :39 AM EDT Last Filed Vital Signs Vital Sign Reading Time Taken Comments Blood Pressure 128/70 03/20/2025 11:55 AM EDT Pulse 75 03/20/2025 11:29 AM EDT Temperature 36.9 C (98.4 F) 03/20/2025 11:29 AM EDT Respiratory Rate 14 03/20/2025 11:29 AM EDT Oxygen Saturation 96% 03/20/2025 11:29 AM EDT Inhaled Oxygen Concentration - - Weight 102 kg (225 lb 9.6 oz) 03/20/2025 11:29 A M EDT Height 182.9 cm (6') 03/20/2025 11:29 AM EDT Body Mass Index 30.6 03/20/2025 11:29 AM EDT Plan of Treatment Upcoming Encounters Date Type Department Care Team (Late st Contact Info) Description 06/10/2025 10:00 AM EST Office Visit [facility] [address] [place] [address] Name, MD Vinicio [address] [place] [address] Health Maintenance Due Date Last Done Comments CT Colonography 1967 FIT DNA/Cologuard 1967 FIT 1967 FOBT 1967 Sigmoidoscopy 1967 Influenza Vaccine (#1) 2025 05/10/2024, 2022 Depression Monitoring 09/20/2025 03/20/2025, 025 Disability Screening 12/07/2025 12/07/2024 Alcohol/Substance Use Screening 03/20/2026 03/20/2025 SDOH Screening 03/20/2026 03/20/2025 Tobacco Screening 03/20/2026 03/20/2025 Colonoscopy 09/26/2028 09/26/2023 Colorectal Cancer Screening 09/26/2028 Lipid Panel 04/23/2029 04/23/2024, 01/27/2024 DTaP/Tdap/Td Vaccines (2 - Td or Tdap) 04/21/2033 04/21/2023, 07/24/2012 RSV Patients and Patients Aged 60 years or older (1 - 1-dose 75+ series) 2042 HIV Screening Completed 01/27/2024 Hepatitis C Screening Completed 01/27/2024 COVID-19 Vaccine Completed 05/10/2024, , 07/06/2021, Additional history exists Zoster Vaccines Completed 06/08/2024, 04/12/2024 Pneumococcal Vaccine: 50+ Years Completed 08/07/2024 Hepatitis B Vaccines Completed 08/14/2024, 03/13/2024, 02/08/2024 HIB Vaccines Aged Out No longer eligi ble based on patient's age to complete this topic HPV Vaccines Aged Out No longer eligi ble based on patient's age to complete this topic Hepatitis A Vaccines Aged Out No long er eligible based on patient's age to complete this topic IPV Vaccines Aged Out No longer eligi ble based on patient's age to complete this topic Meningococcal B Vaccine Aged Out No l onger eligible based on patient's age to complete this topic Meningococcal Vaccine Aged Out No vidhya tito eligible based on patient's age to complete this topic RSV under 20 months Aged Out No longe r eligible based on patient's age to complete this topic Rotavirus Vaccines Aged Out No longer eligible based on patient's age to complete this topic Procedures Procedure Name Priority Date/Time Associated Diagnosis Comments LIPID PANEL, STANDARD Routine 04/23/2024 10:55 AM EDT HEPATITIS C VIRAL RNA, QUANTITATIVE, REAL-TIME PCR Routine 01/27/2024 11:37 AM EDT Dizziness HIV 1/2 ANTIGEN/ANTIBODY, FOURTH GENERATION W/RFL Routine 01/27/2024 11:37 AM EDT Dizziness COLONOSCOPY Routine 09/26/2023 1:52 PM EST from Last 3 Months or Most Recently Relevant to Health Maintenance Results * (ABNORMAL) Lipid Panel, Standard (04/23/2024 10:55 AM EDT) Triglycerides 123 <150 mg/dL [facility] Comment:Desirable Triglyceri de: less than 150 mg/dLBorderline High Triglyceride 150-199 mg/dLHigh Triglyceride: 200-499 mg/dLVery High Triglyceride: greater than or equal to 5OO mg/dL Cholesterol 132 <200 mg/dL [facility] Comment:Desirable Cholestero l: less than 200 mg/dLBorderline High Cholesterol: 200-239 mg/dLHigh Cholesterol: greater than 239 mg/dL LDL Cholesterol Calculated 78 <100 mg/dL [facility] Comment:Desirable LDL: less than 100 mg/dLNear Optimal/Above Optimal LDL: 110- 129 mg/dLBorderline High LDL: 130-159 mg/dLHigh LDL: 160-189 mg/dLVery High LDL: greater than or equal to 190 mg/dL HDL Cholesterol 30(L) >40 mg/dL [facility] Comment:Desirable HDL: great er than 40 mg/dL Note: This HDL assay may give artificially low results in patients with liver disease. 04/23/2024 10:5 5 AM EDT 04/23/2024 1:45 PM EDT us Vinicio Mehta MD LAB BLOOD ORDERABLES Final Resul t [facility] [address] [place] [phone] * Hepatitis C Viral RNA, Quantitative, Real-Time PCR (01/27/2024 11:37 AM EDT) Pathologist [facility] Hepatitis C Viral Load <15 NOT DETECTED NOT DETECTED IU/mL [facility] HCV Log PCR <1.18 NOT DETECTED NOT DETECTED Log IU/mL [facility] Comment:For additional infor [place], please refer tohttp://education.Breezie/faq/XXC16e8(This link is being provided for informational/educational purposes only.)THIS TEST WAS PERFORMED AT:[facility] [place] [phone] WESTON MD Blood 01/27/2024 11:3 7 AM EDT 01/27/2024 12:58 PM EDT us Nguyen ENGLISH LAB BLOOD ORDERABLES Final Res ult [facility] [address] [place] [phone] [phone] * HIV-1/2 Antigen and Antibodies, Fourth Generation, with Reflexes (01/27/2024 11:37 AM EDT) Pathologist [facility] HIV AB/AG Nonreactive Nonreactive [facility] Comment:HIV-1 p24 Ag and/or HIV-1/HIV-2 Ab not detected.A test result that is nonreactive does not exclude thepossibility of exposure to or infection with HIV-1 and/orHIV-2. Nonreactive results in this assay for individualswith prior exposure to HIV-1 and/or HIV-2 may be due toantigen and antibody levels that are below the limit ofdetection of this assay.The [employer] HIV Ag/Ab Combo assay result andsupplemental assay results should be interpreted inconjunction with the patient's clinical presentation,history and other laboratory results. If the results areinconsistent with clinical evidence, additional testing issuggested to confirm the result. Blood Venous blood specimen / Unknown 01/27/2024 11:37 AM EDT 01/27/2024 12:58 PM EDT us Nguyen Phalen CHIEF INVESTMENT OFFICER LAB BLOOD ORDERABLES Final Res ult [facility] [address] [place] [phone] [phone] * Colonoscopy (09/26/2023 1:52 PM EST) Anatomical Region Laterality Modality Endoscopy Historical Provider MD ENDOSCOPY PROCEDURE ORDER RADHA Final Result from Last 3 Months or Most Recently Relevant to Health Maintenance Insurance [facility] C3 Care Teams Wrap Turner Relationship Specialty Start Date End Date Name, MD Vinicio [address] [place] [phone] PCP - General Internal Medicine 03/13/24
--- OUTSIDE RECORDS SUMMARY | 2025-04-05 17:55 | XMS_ITS | Encounter Summary ---
Author Organization [employer] Address [address] [facility] 7t [place] [address] Care Team Providers Care Manager Of Drilling Name Role Phone Name, Vinicio BOUCHER Primary Care Provider [phone] Radha Shea PharmD Unavailable [phone] Reason for Visit * Reason Onset Date Comments Appointment Request 06/05/2024 Encounter Details Date Type Department Care Team ([facility] st Contact Info) Description 06/05/2024 Telephone [facility] [address] [place], [place] [phone] Name, MD Vinicio [address] [place] [address] Appointment Request Social History Tobacco Use Types Packs/Day Years Used Date Smoking Tobacco: Never Alcohol Use Standard Drinks/Week Comments [...] AM EDT documented as of this encounter Miscellaneous Notes * Telephone Encounter - Bee Munroe - 06/05/2024 1:15 PM EDT Tc from pt stating he hit cancel on appointment reminder text. Pt returned call to r/s but song writer unable to book appointment due to televisit on same slot. Dispute Resolution Analyst advise will send a message. Contact pt at [phone] (vietnamese) documented in this encounter Plan of Treatment Upcoming Encounters Date Type Department Care Team (Late st Contact Info) Description 06/10/2025 10:00 AM EST Office Visit [facility] [address] [place] [address] Name, MD Vinicio [address] [place] [address] documented as of this encounter Visit Diagnoses Not on filedocumented in this encounter Additional Health Concerns Assessment Noted Time PHQ-9 Depression Total Score: 14 024 9:56 AM EDT documented as of this encounter Care Teams Manager Of Drilling Relationship Specialty Start Date End Date NameVinicio MD [address] [place] [phone] PCP - General Internal Medicine 03/13/24 Radha Shea, AshleighD [address] [place] [phone] Pharmacist Internal Medicine 04/12/24 12/17/24 documented as of this encounter
--- OUTSIDE RECORDS SUMMARY | 2025-04-05 17:55 | XMS_ITS | Encounter Summary ---
Author Organization [employer] Address [address] [facility] 7t [place] [address] Care Team Providers Care Data Analytics Architect Name Role Phone Name, Vinicio BOUCHER Primary Care Provider [phone] Reason for Visit * Reason Onset Date Comments Housing Form 04/02/2025 I called the pat ient regarding a reasonable accommodation request, from [employer]. He needs to state what accommodation he is requesting. I reached his voicemail, and left a message asking him to return my call at ext [phone]. Encounter Details Date Type Department Care Team (Late st Contact Info) Description 04/02/2025 Telephone [facility] [address] [place] [address] Name, MD Vinicio [address] [place], [place] [phone] Housing Form (I called the patient regarding a reasonable accommodation request, from [employer]. He needs to state what accommodation he is requesting. I reached his voicemail, and left a message asking him to return my call at ext [phone].) Social History Tobacco Use Types Packs/Day Years [...] housing situation today? I have alessandra willett 03/20/[address] you li [...] encounter Miscellaneous Notes * Telephone Encounter - Chastity Carroll MA - 04/02/2025 2:01 PM EDT I called the patient regarding a reasonable accommodation request, from [employer]. He needs to state what accommodation he is requesting. I reached his voicemail, and left a message askinghim to return my call at ext [phone]. documented in this encounter Plan of Treatment Upcoming Encounters Date Type Department Care Team (Late st Contact Info) Description 06/10/2025 10:00 AM EST Office Visit [facility] [address] [place] [phone] Name, MD Vinicio [address] [place] [address] documented as of this encounter Visit Diagnoses Not on filedocumented in this encounter Additional Health Concerns Assessment Noted Time PHQ-9 Depression Total Score: 16 025 11:31 AM EDT documented as of this encounter Care Teams Data Analytics Architect Relationship Specialty Start Date End Date Name, MD Vinicio [address] [place] [address] PCP - General Internal Medicine 03/13/24 documented as of this encounter
== END 2025-04-05 17:41 | disposition home or self-care (01) ==
LOC: HO.MRI 17:40
PROVIDERS: PCP Internal Medicine Geriatric Medicine; Visit Provider Registered Nurse
DX: S06.0X0A Concussion without loss of consciousness, initial encounter (principal); G20.C Parkinsonism, unspecified; G40.909 Epilepsy, unspecified, not intractable, without status epilepticus
CPT/HCPCS: 70551

== ENCOUNTER 2025-06-24 15:35 | Outpatient (AMB) | payer MEDICAID, SELFPAY ==
--- NOTE | 2025-06-24 15:39 | A.OFFVIS_ITS ---
Intake Visit Reasons: 3m PD, sz Insurance Commissioner Required: Yes Insurance Commissioner Name: #[id number] Allergies No Known Allergies Allergy (Verified 06/24/25 15:47) Medication List - Last Reconciled 06/24/25 by Kimberli Jaime CNP acetaminophen 1,000 mg (2 x 500 mg) PO QID PRN amoxicillin 500 mg PO BID amoxicillin-pot clavulanate 875-125 mg 1 tab PO BID aspirin 81 mg PO DAILY atorvastatin 10 mg PO BEDTIME carbidopa-levodopa 25-100 mg (Sinemet) 0.5 tabs PO TID cyclobenzaprine 5 mg PO TID PRN hydrochlorothiazide 25 mg PO DAILY lamotrigine 100 mg PO BID lidocaine 5% 1 patch topical DAILY lorazepam (Ativan) 1 mg PO BEDTIME PRN meclizine (Dramamine (meclizine)) 25 mg PO TID PRN sertraline 200 mg PO QAM trazodone 50 mg PO BEDTIME Trelegy Ellipta 200-62.5-25 mcg (jltyxowlzug-sftlcjkvz-soyomssd) 1 inh inhalation DAILY 30 days NS HPI Comments Details: 59-year-old RH man with childhood h/o seizure disorder, h/o alcohol and cocaine abuse, 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 EEG revealed left temporal sharps. He had some frontal headaches that came and went a few times a week. He tried Tylenol as needed which did not help. Buzzing to right ear that comes and goes was about the same. He was also complaining of some ongoing neck pain and left sided weakness. Occasional dizziness and unsteadiness was still there. Walking with cane, no falls. Tremor was okay with medication. Sleep was up and down. Mood was not so good, working with therapist and psychiatrist. [facility] Medical History (Updated 06/24/25 @ 16:34 by Kimberli Jaime CNP) Seizure disorder H/O cocaine abuse Insomnia Depression with anxiety Hypertension Social History Household Members: None Housing: Apartment Do you presently have visiting nurse or other home services: No Alcohol intake: former Patient Tobacco Use Status: Never used Tobacco e-Cigarette/Vaping Use: Never Used Substance Use Type: Crack/Cocaine service: No Current occupational status: unemployed Review of Systems Const Denies chills, Denies daytime sleepiness, Reports difficulty sleeping, Denies fatigue, Denies fever(s), Denies frequent falls, Denies headache(s), Denies increased appetite, Denies poor appetite, Denies snoring, Denies weakness, Denies weight gain and Denies weight loss Eyes Denies loss of vision ENT Denies vertigo, Reports dizziness and Denies headache(s) Card Denies chest pain at rest, Denies chest pain with activity, Denies syncope, Denies leg edema and Denies palpitations Resp Denies snoring GI Denies constipation, Denies heartburn, Denies diarrhea and Denies nausea Denies urinary frequency, Denies urinary incontinence and Denies urinary urgency Musc Reports abnormal gait (balance difficulty), Denies numbness and Denies tingling Skin/Breast Denies dry skin and Denies rash Neuro Reports abnormal gait (balance difficulty), Denies vertigo, Reports dizziness, Denies syncope, Denies frequent falls, Denies headache(s), Reports lack of coordination, Denies loss of vision, Reports memory loss, Denies numbness, Denies restless legs, Denies seizure-like activity, Denies tingling, Denies paresthesias, Reports tremor(s) and Denies weakness Psych Reports anxiety, Denies depression, Denies auditory hallucinations, Reports memory loss, Denies visual hallucinations and Denies suicidal ideation Endo Denies fatigue and Denies palpitations Physical Exam Const Other: General Appearance:? normal, in no acute distress. Skin:? no rashes, no significant birthmarks. Heart:? S1, S2 normal, no murmurs. Lungs:? clear anteriorly and posteriorly. Extremities:? no edema. Psych:? alert, oriented, cognitive function intact, cooperative with exam. Neuro Other: Mental Status:?Normal attention, orientation, memory and affect.? Cranial Nerves:?Pupils are equal, round and reactive to light. External occular muscles are intact. Visual mcrae are full. Face is symmetrical. Facial sensations are normal. Tongue is midline. Palate elevates symmetrically. Shoulder shrugging is normal. Hearing to bedside conversation is normal. Sensory Exam:?....? Coordination:?No ataxia,?no titubation.? Gait Exam: With cane. Forward leaning posture, decreased arm swing on left. Extrapyramidal System:?Decreased facial expression and blinking. Mild cogwheeling rigidity in L hand. Pronator Drift:?Not present.? Involuntary Movements:?Fine tremors of the outstretched hands seen, L > R. Speech:?Normal.? Results Reviewed Results Reviewed: [address] [address] Magnetic Resonance Report Signed Patient: Montez Portillo MR#: [id number] : 1965 Acct:[id number] Age/Sex: 59 / M ADM Date: 04/05/25 Loc: HO.MRI Attending Dr: Kimberli Jaime CNP Ordering Physician: Kimberli Jaime CNP Date of Service: 04/05/25 Procedure(s): MR head/brain wo con Accession Number(s): [id number] cc: Name,Vinicio BOUCHER; Kimberli Jaime CNP~ EXAMINATION: MR BRAIN WITHOUT CONTRAST CLINICAL INFORMATION: Concussion without loss of consciousness. COMPARISON: Correlated to CT dated March 18, 2024. TECHNIQUE: MRI of the brain was obtained using routine sequences without contrast. FINDINGS: Patient's motion artifact. No restricted diffusion. No acute intracranial hemorrhage, mass effect, midline shift, hydrocephalus or herniation. Armenta-white matter differentiation is normal. Bilateral, a few, scattered, nonspecific, less than 3 mm deep white matter hyperintense T2 FLAIR signal involving centrum semiovale and marsh radiata. Flow-void signal within the main cerebral vessels is normal. There is a dominant left-sided transverse sigmoid venous sinus. Prominence of the extra-axial CSF spaces, cerebral sulci and ventricles. Sellar/suprasellar region demonstrated no signal abnormality or gross masses. Craniocervical junction demonstrates normal position of the cerebellar tonsils. No signal abnormality or gross asymmetric volume loss in the hippocampi. MR/MR head/brain wo con IMPRESSION: No acute brain abnormality. Global cerebral atrophy. Electronically signed by: Aditya Campos MD 04/08/2025 12:21 PM EDT Dictated By: Aditya Stahl MD Signed By: <Electronically signed by Aditya Vazquez MD in OV> 04/08/25 1221 EEG at off in Aug 2024: WNL EEG at off in February 2024: L temp sharps CT brain WO at [facility] in December 2023: Mild cerebellar atrophy, mild pontine atrophy CTA brain and neck at [facility] in December 2023: [place] Lamotrigine level in Jul 2024: ok (9.0) Assessment & Plan Assessment & Plan (1) Seizure disorder: Code(s): G40.909 - Epilepsy, unspecified, not intractable, without status epilepticus Category: Medical Plan: Continue lamotrigine 100mg 1 tablet twice a day. (2) Parkinsonism: Code(s): G20.C - Parkinsonism, unspecified Category: Medical Qualifiers: Parkinsonism type: unspecified Qualified Code(s): G20.C - Parkinsonism, unspecified Plan: MRI results reviewed. Continue carbidopa-levodopa 25-100mg 1/2 tablet three times a day. Stay physically active, continue to use cane. Follow up in 3 months or sooner as needed. (3) Neck pain: Code(s): M54.2 - Cervicalgia Category: Medical Plan: C Spine XR ordered. (4) Migraine: Code(s): G43.909 - Migraine, unspecified, not intractable, without status migrainosus Category: Medical Qualifiers: Migraine type: unspecified Status migrainosus presence: without status migrainosus Intractability: not intractable Qualified Code(s): G43.909 - Migraine, unspecified, not intractable, without status migrainosus Plan: Start sumatriptan 50mg 1 tablet as needed for migraine, use/side effects reviewed. He advised not to take this medication more than 2-3x/week. Plan Meds tried: Lamotrigine Orders: Orders XR cervical spine 4V Today M54.2 - Cervicalgia Medications: New sumatriptan succinate take 1 tab at onset of headache; if no relief may repeat 1 tab after at least 2 hrs; PO 10 tabs 5RF 30 days Changed From carbidopa-levodopa 25-100 mg (Sinemet) 0.5 tabs PO TID To carbidopa-levodopa 25-100 mg (Sinemet) 0.5 tabs PO TID 135 tabs 1RF 90 days From lamotrigine 100 mg PO BID To lamotrigine 100 mg PO BID 180 tabs 1RF 90 days Coding Level of Care Code Est Pt Level 4 (53844) Diagnoses Seizure disorder G40.909 Parkinsonism, unspecified Parkinsonism type G20.C Parkinsonism type: unspecified Neck pain M54.2 Migraine without status migrainosus, not intractable, unspecified migraine type G43.909 Migraine type: unspecified Status migrainosus presence: without status migrainosus Intractability: not intractable
== END 2025-06-24 16:04 | disposition home or self-care (01) ==
LOC: HO.HSM 15:35
PROVIDERS: PCP Internal Medicine Geriatric Medicine; Visit Provider Registered Nurse
DX: G40.909 Epilepsy, unspecified, not intractable, without status epilepticus (principal); G20.C Parkinsonism, unspecified; M54.2 Cervicalgia; G43.909 Migraine, unspecified, not intractable, without status migrainosus
CPT/HCPCS: 99214

== ENCOUNTER → 2025-06-24 15:35 | Outpatient (BNVA) | payer MEDICAID, SELFPAY | PROVIDERS: PCP Internal Medicine Geriatric Medicine; Visit Provider Registered Nurse | DX: G40.909 Epilepsy, unspecified, not intractable, without status epilepticus (principal); G20.C Parkinsonism, unspecified; M54.2 Cervicalgia; G43.909 Migraine, unspecified, not intractable, without status migrainosus | CPT/HCPCS: 99212 ==

== ENCOUNTER 2025-07-09 15:18 | Outpatient (REF) | payer MEDICAID, SELFPAY ==
--- NOTE | 2025-07-09 16:12 | MHC.AU.MED ---
Medical Clearance for Hearing Instrumentation Date: 07/09/25 Patient Name: Montez Portillo Date of : 1965 Primary Care Provider: Vinicio Mehta MD We have seen your patient on 07/09/25 and have determined that they are a candidate for amplification (See accompanying report). Specifically, they would benefit from: Hearing aid use in both ears There is a statute that addresses Medical Evaluation Requirements prior to fitting a patient with a hearing aid. According to [place] statute 265 CMR:6.03(1), (a) General. Except as provided in 265 CMR 6.03(1)(b), a trailer steerer shall not sell a hearing aid unless the prospective user has presented to the trailer steerer a written statement signed by a licensed physician that states that the patient's hearing loss has been medically evaluated and the patient may be considered a candidate for a hearing aid. The medical evaluation must have taken place within the preceding six months. Please note: Due to the [place] Statute referenced above, we cannot accept a signature other than that of a licensed physician. CHILDREN'S MINISTER and PA signatures cannot be accepted. I am in agreement with the above recommendation. There is no medical contraindication for hearing instrumentation. Physician Signature Date Physician Name (Printed)
--- OUTSIDE RECORDS SUMMARY | 2025-07-09 16:59 | XMS_ITS | Encounter Summary ---
Author Organization [employer] Address [address] [place] [address] Care Team Providers Care Efficiency Expert Name Role Phone Name, Vinicio BOUCHER Primary Care Provider [phone] Radha Shea PharmD Unavailable [phone] Encounter Details Date Type Department Care Team ([facility] st Contact Info) Description 08/14/2024 Orders Only [facility] [place] [facility] [address] [place], [place] [phone] ProviderKristi MD Social History Tobacco Use Types [...] Care Team (Late st Contact Info) Description 07/17/2025 4:00 PM EST Office Visit [facility] MEDICINE [address] [place] [address] Name, MD Vinicio [address] [place] [address] documented as of this encounter Procedures Procedure [...] documented as of this encounter Care Teams Efficiency Expert Relationship Specialty Start Date End Date Name, MD Vinicio [address] [place] [address] PCP - General Internal Medicine 03/13/24 Radha Shea PharmD [address] [place] [address] Pharmacist Internal Medicine 04/12/24 12/17/24 documented as of this encounter
--- OUTSIDE RECORDS SUMMARY | 2025-07-09 16:59 | XMS_ITS | Clinical Summary ---
Author Organization [employer] Address [address] [place] [address] Care Team Providers Care Home Care Administrator Name Role Phone Name, Vinicio BOUCHER Primary Care Provider [phone] Allergies No known active allergies Medications * This document contains information received from the source organization and may not represent a complete record from that organization. Blood Pressure kitIndications:[place] morris hypertension Use to check blood pressure once [...] crush, chew, or split. 90 capsule 3 07/01/2025 12:51 PM EST 07/16/20 24 // 026 Active losartan-hydroCHLO ROthiazide (Hyzaar) 100-12.5 MG tabletIndications: Hypertension, unspecified type Take 1 tablet by mouth Once per day. 90 tablet 3 07/01/2025 12:51 PM EST 07/16/20 24 Active atorvastatin (Lipitor) 40 MG [...] recurrent major depressive disorder, without psychotic features ([facility]) 03/13/2024 Obstructive sleep apnea 01/26/2024 Assessment & Plan (01/26/2024 12:27 PM EDT): Followed by [facility] Pulm - Dr. Tellez Reports that he received CPAP approx Aug 2023, but has not been able to use. 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 call animal surgeon (Oxigene) for assistance Vertigo due to brain injury [...] cocaine use 01/08/2022 History of drug abuse ([facility]/HCC) 01/08/2022 Resolved Problems Problem Noted Date Diagnosed Date Resolved Date REED (acute kidney injury) 03/20/2024 Atypical chest pain 03/20/2024 12/08/19 25 Benign paroxysmal positional vertigo 03/20/2024 12/07/2024 Dysarthria 03/20/2024 12/07/2024 Dyspnea on exertion 03/20/2024 12/08/19 25 Facial droop 03/20/2024 12/07/2024 Generalized weakness 03/20/2024 024 Morbid obesity ([facility]/HCC) 03/20/2024 Sinusitis nasal 03/20/2024 03/20/2024 Vertigo 03/20/2024 03/20/2024 CECILIA (obstructive sleep apnea) 03/20/2024 03/20/2024 Hypertension 03/20/2024 12/07/2024 Tremulousness 03/20/2024 03/20/2024 Healthcare maintenance 01/26/202403/20 Assessment & Plan (01/26/2024 12:24 PM EDT): - Dental in [place] - Reports colonoscopy in 2023 through [facility], was advised for repeat in 5 years (request records to confirm) Encounters Date Type Department Care Team Description 06/07/2025 Telephone [facility] MED[facility]INE [address] [place] [address] NameVinicio MD Chart Prep 04/16/2025 Telephone [facility] MED[facility] [address] [place] [address] NameVinicio MD Housing Form (I received a voicemail from Amelia, the patient's daughter, asking for a return call at [phone]. Messages were left on 04/15/25 and 04/02/25, regarding a reasonable accommodation request from [employer]. I return her call, and reached the patient's voicemail. I left a message asking him to return my call at ext [phone].) 04/15/2025 Telephone [facility] MED[facility] [address] [place] [address] Name, MD Vinicio Housing Form (I called the patient at [phone] regarding a reasonable accommodation request, from [employer]. He needs to state what accommodation he is requesting. I reached his voicemail, and left a message asking him to return my call at ext [phone]. The number [phone] is not in service.) from Last 3 Months Immunizations Immunization Administration [...] Description 07/17/2025 4:00 PM EST Office Visit [facility] MED[facility] [address] [place] [address] Name, MD Vinicio [address] [place] [address] Health Maintenance Due Date Last Done Comments CT Colonography 1965 FIT DNA/Cologuard 1965 FIT 1965 FOBT 1965 Sigmoidoscopy 1965 RSV Patients and Patients Aged 60 years or older (1 - Risk 50-74 years 1-dose series) 2017 COVID-19 Vaccine ( season) 2025 05/10/2024, 09/29/2022, 07/06/2021, Additional history exists Influenza Vaccine (#1) 2025 05/10/2024, 2022 Depression Monitoring 09/20/2025 03/20/2025, 025 Disability Screening 12/07/2025 12/07/2024 Alcohol/Substance Use Screening 03/20/2026 03/20/2025 SDOH Screening 03/20/2026 03/20/2025 Tobacco Screening 03/20/2026 03/20/2025 Colonoscopy 09/26/2028 09/26/2023, 09/26/2023 Colorectal Cancer Screening 09/26/2028 Lipid Panel 04/23/2029 04/23/2024, 01/27/2024 DTaP/Tdap/Td Vaccines (2 - Td or Tdap) 04/21/2033 04/21/2023, 07/24/2012 HIV Screening Completed 01/27/2024 Hepatitis C Screening Completed 01/27/2024 Zoster Vaccines Completed 06/08/2024, 04/12/2024 Pneumococcal Vaccine: [...] 10:55 AM EDT) Triglycerides 123 <150 mg/dL [facility] Comment:Desirable Triglyceri de: less than 150 mg/dLBorderline High Triglyceride 150-199 mg/dLHigh Triglyceride: 200-499 mg/dLVery High Triglyceride: greater than or equal to 5OO mg/dL Cholesterol 132 <200 mg/dL [facility] Comment:Desirable Cholestero l: less than 200 mg/dLBorderline High Cholesterol: 200-239 mg/dLHigh Cholesterol: greater than 239 mg/dL LDL Cholesterol Calculated 78 <100 mg/dL [facility] Comment:Desirable LDL: less than 100 mg/dLNear Optimal/Above Optimal LDL: 110- 129 mg/dLBorderline High LDL: 130-159 mg/dLHigh LDL: 160-189 mg/dLVery High LDL: greater than or equal to 190 mg/dL HDL Cholesterol 30(L) >40 mg/dL [facility] Comment:Desirable HDL: great er than 40 mg/dL Note: This HDL assay may give artificially low results in patients with liver disease. 04/23/2024 10:5 5 AM EDT 04/23/2024 1:45 PM EDT us Vinicio Name LAB BLOOD ORDERABLES Final Resul t [facility] [address] [place] [address] [phone] * Hepatitis C Viral RNA, Quantitative, Real-Time PCR (01/27/2024 11:37 AM EDT) Pathologist [facility] Hepatitis C Viral Load <15 NOT DETECTED NOT DETECTED IU/mL [facility] HCV Log PCR <1.18 NOT DETECTED NOT DETECTED Log IU/mL [facility] Comment:For additional infor carley, please refer [email or web address].Kuotus/faq/YOB18i8(This link is being provided for informational/educational purposes only.)THIS TEST WAS PERFORMED AT:[facility] [place] [phone] WESTON MD Blood 01/27/2024 11:3 7 AM EDT 01/27/2024 12:58 PM EDT Nguyen Palacios [facility] LAB BLOOD ORDERABLES Final Res ult [facility] [address] [place] [address] [phone] * HIV-1/2 Antigen and Antibodies, Fourth Generation, with Reflexes (01/27/2024 11:37 AM EDT) [facility] HIV AB/AG Nonreactive Nonreactive [facility] Comment:HIV-1 p24 Ag and/or HIV-1/HIV-2 Ab not detected.A test result that is nonreactive does not exclude thepossibility of exposure to or infection with HIV-1 and/orHIV-2. Nonreactive results in this assay for individualswith prior exposure to HIV-1 and/or HIV-2 may be due toantigen and antibody levels that are below the limit ofdetection of this assay.The Souqalmal HIV Ag/Ab Combo assay result andsupplemental assay results should be interpreted inconjunction with the patient's clinical presentation,history and other laboratory results. If the results areinconsistent with clinical evidence, additional testing issuggested to confirm the result. Blood Venous blood specimen / Unknown 01/27/2024 11:37 AM EDT 01/27/2024 12:58 PM EDT Nguyen Palacios [employer] LAB BLOOD ORDERABLES Final Res ult [facility] [address] [place] [address] [phone] * Colonoscopy (09/26/2023 1:52 PM EST) Anatomical Region Laterality Modality Endoscopy Historical Provider ENDOSCOPY PROCEDURE ORDER RADHA Final Result from Last 3 Months or Most Recently Relevant to Health Maintenance [facility] Care Teams Home Care Administrator Relationship Specialty Start Date End Date Name, MD Vinicio [address] [place] [phone] PCP - General Internal Medicine 03/13/24
--- OUTSIDE RECORDS SUMMARY | 2025-07-09 16:59 | XMS_ITS | Encounter Summary ---
Author Organization [employer] Address [address] [place] [address] Care Team Providers Care Systems Engineering Manager Name Role Phone Name, Vinicio BOUCHER Primary Care Provider [phone] Radha Shea PharmD Unavailable [phone] Reason for Visit * Reason Onset Date Comments Appointment Request 06/05/2024 Encounter Details Date Type Department Care Team ([facility] st Contact Info) Description 06/05/2024 Telephone [facility] MEDICINE [address] [place], [place] [phone] Name, MD Vinicio [address] [place] [address] Appointment Request Social History Tobacco Use Types [...] text. Pt returned call to r/s but telegraphic typewriter mechanic unable to book appointment due to televisit on same slot. Hospitalist Nocturnist Physician advise will send a message. Contact pt at [phone] (icelandic) documented in this encounter Plan of Treatment Upcoming Encounters Date Type Department Care Team (Late st Contact Info) Description 07/17/2025 4:00 PM EST Office Visit [facility] MEDICINE [address] [place] [address] Name, MD Vinicio [address] [place] [address] documented as of this encounter Visit Diagnoses Not on filedocumented in this encounter Additional Health Concerns Assessment Noted Time PHQ-9 Depression Total Score: 14 024 9:56 AM EDT documented as of this encounter Care Teams Systems Engineering Manager Relationship Specialty Start Date End Date NameVinicio MD [address] [place] [id number] PCP - General Internal Medicine 03/13/24 Radha Shea, AshleighD [address] [place] [phone] Pharmacist Internal Medicine 04/12/24 12/17/24 documented as of this encounter
--- NOTE | 2025-07-10 07:18 | MHC.AU.MED ---
Medical Clearance for Hearing Instrumentation Date: 07/09/25 Patient Name: Montez Portillo Date of : 1965 Primary Care Provider: Vinicio Mehta MD We have seen your patient on 07/09/25 and have determined that they are a candidate for amplification (See accompanying report). Specifically, they would benefit from: Hearing aid use in both ears There is a statute that addresses Medical Evaluation Requirements prior to fitting a patient with a hearing aid. According to [place] statute 265 CMR:6.03(1), (a) General. Except as provided in 265 CMR 6.03(1)(b), a teacher hearing impaired shall not sell a hearing aid unless the prospective user has presented to the teacher hearing impaired a written statement signed by a licensed physician that states that the patient's hearing loss has been medically evaluated and the patient may be considered a candidate for a hearing aid. The medical evaluation must have taken place within the preceding six months. Please note: Due to the [place] Statute referenced above, we cannot accept a signature other than that of a licensed physician. TEMPERATURE REGULATOR and PA signatures cannot be accepted. I am in agreement with the above recommendation. There is no medical contraindication for hearing instrumentation. Physician Signature Date Physician Name (Printed)
--- NOTE | 2025-07-10 07:40 | MHC.AU.HA1 ---
Hearing Aid Evaluation Date of Visit: 07/09/25 Sales Support Associate Used: [employer]- By Phone Historical Information: Description of Hearing: Mild sloping to severe rising to mild sensorineural hearing loss, bilaterally Summary: Noted difficulty understanding speakers and listening to television at elevated volume. Hoping amplification will help ease some communication difficulties and minimize perception of tinnitus. Discussed options. Opted for rechargeable RITE, starting with domes but may add EMs, if needed. Will order HAs pending medical clearance. Hearing Aid Prescription: Based on the individual?s shared listening needs, communication environments, dexterity, desire for connectivity, and personal preferences, the following prescription for amplification has been made: Right ear: Make, Model, Color: Phonak Audeo I70-R Color: Graphite Darrick Battery Size: Rechargeable Cash Accounting Clerk/Slim Tube: 2M Type of Earmold/Dome/CShell/SlimTip: Small vented dome Left ear: Left ear prescription to be same as Right Hearing Aid above: Make, Model, Color: Phonak Audeo I70-R Color: Graphite Darrick Battery Size: Rechargeable Cash Accounting Clerk/Slim Tube: 2M Type of Earmold/Dome/CShell/SlimTip: Small vented dome Accessories/Assistive Technology: Systems Architecture Analyst Plan of Care: Patient wishes to purchase hearing aids as prescribed Action Taken/Action Needed: Medical Clearance to be requested from PCP/ENT. Hearing Instrument Fitting to be scheduled when materials arrive Primary Diagnosis: H90.3 Bilateral Sensorineural Hearing Loss Secondary Diagnosis: H93.13 Tinnitus, Bilateral Signature: Provider: Lynnette Aguayo, [facility]
== END 2025-07-09 15:19 | disposition home or self-care (01) ==
LOC: HO.SH 15:18
PROVIDERS: Visit Provider Internal Medicine Geriatric Medicine
DX: H90.3 Sensorineural hearing loss, bilateral (principal); H93.13 Tinnitus, bilateral
CPT/HCPCS: 92557; 92591

== ENCOUNTER 2025-07-23 20:46 | Emergency (ER) | payer MEDICAID, SELFPAY ==
--- NOTE | 2025-07-23 20:50 | ED.GENADULT ---
HPI - General Adult General Chief complaint: Extremity Problem Stated complaint: toe pain Time Seen by Provider: 07/23/25 20:57 Source: patient Mode of arrival: ambulatory Limitations: no limitations History of Present Illness ED Provider: Dr. Abbie Christopher HPI narrative: Patient comes to the emergency room complaining of a fungus on his great toe on the right toe for over a year. Patient states that he wants to address the problem before he is due to go to penitentiary in [place]. Patient denies any pain. Related Data Home Medications ?Medication ?Instructions ?Recorded ?Confirmed atorvastatin 10 mg tablet 10 mg PO BEDTIME 09/21/22 09/24/22 sertraline 100 mg tablet 200 mg PO QAM 06/18/25 06/24/25 Previous Rx's ?Medication ?Instructions ?Recorded hydrochlorothiazide 25 mg tablet 25 mg PO DAILY #30 tabs 09/19/22 aspirin 81 mg tablet,delayed 81 mg PO DAILY #30 tabs 09/26/22 release trazodone 50 mg tablet 50 mg PO BEDTIME #30 tabs 01/28/23 amoxicillin 875 mg-potassium 1 tab PO BID #20 tabs 03/02/23 clavulanate 125 mg tablet lorazepam 1 mg tablet (Ativan) 1 mg PO BEDTIME PRN Severe 03/02/23 dizziness #7 tabs meclizine 25 mg tablet (Dramamine 25 mg PO TID PRN dizziness #30 tabs 03/02/23 (meclizine)) Trelegy Ellipta 200 mcg-62.5 1 inh inhalation DAILY 30 days #1 08/19/23 mcg-25 mcg powder for inhalation ea (fxalaapickg-akkljjpiu-jzsexzye) acetaminophen 500 mg tablet 1,000 mg (2 x 500 mg) PO QID PRN 10/30/23 pain #30 tabs cyclobenzaprine 5 mg tablet 5 mg PO TID PRN muscle spasm #10 10/30/23 tabs lidocaine 5 % topical patch 1 patch topical DAILY back pain 10/30/23 #15 ea amoxicillin 500 mg capsule 500 mg PO BID #19 caps 09/13/24 carbidopa 25 mg-levodopa 100 mg 0.5 tab PO TID 90 days #135 tabs 06/24/25 tablet (Sinemet) lamotrigine 100 mg tablet 100 mg PO BID 90 days #180 tabs 06/24/25 sumatriptan succinate 50 mg tablet See Rx Instructions PO .COMPLEX 30 06/24/25 days #10 tabs Allergies Allergy/AdvReac Type Severity Reaction Status Date / Time No Known Allergies Allergy Verified 07/23/25 20:52 Review of Systems Review of Systems: Constitutional : No Weight loss, No Fever, No Chills, No Night Sweats, No Fatigue, No Malaise ENT/Mouth : No Hearing loss, No Ear Pain, No Nasal Congestion, No Sinus Pain, No Hoarseness, No sore throat, No Rhinorrhea, No Swallowing Difficulty Eyes: No Eye Pain, No Swelling, No Redness, No Foreign Body, No Discharge, No Vision Changes Cardiovascular : No Chest Pain, No SOB, No Dyspnea on Exertion, No Orthopnea, No Edema, No Palpitations Respiratory : No Cough, No Sputum, No Wheezing, No Smoke Exposure, No Dyspnea Gastrointestinal : No Nausea, No Vomiting, No Diarrhea, No Constipation, No abdominal Pain, No Hematochezia, No Melena Genitourinary : no irregular bleeding, No Dysuria, No Urinary Frequency, No Hematuria, No Urinary Incontinence, No Urgency, No Flank Pain, No Urinary Flow Changes, No Hesitancy Musculoskeletal : No joint pain, No Myalgias, No Joint Swelling Skin : Complaining of fungus in the great toe of the right foot, No Skin Lesions, No rash Neuro : No Weakness, No Numbness, No Paresthesias, No Loss of Consciousness, No Dizziness, No Headache Psych : No Anxiety/Panic, No Depression, No SI/HI/AH/VH, No Social Issues, Heme/Lymph: No Bruising, No Bleeding,No Lymphadenopathy Endocrine : No Polyuria, No Polydipsia, No Temperature Intolerance [facility] Past Medical History Medical History Seizure disorder H/O cocaine abuse Insomnia Depression with anxiety Hypertension Social History Social History Household Members: None Housing: Apartment Do you presently have visiting nurse or other home services: No Alcohol intake: former Patient Tobacco Use Status: Never used Tobacco e-Cigarette/Vaping Use: Never Used Substance Use Type: Crack/Cocaine service: No Current occupational status: unemployed Physical Exam ED Exam Exam: Appearance: Alert. Oriented X3. No acute distress. Eyes: Pupils equal, round and reactive to light. ENT: Pharynx normal. Neck: Normal inspection. Neck supple. No lymph nodes noted. No crepitus CVS: Normal heart rate and rhythm. Pulses normal. Normal S1 and S2 Respiratory: No respiratory distress. Breath sounds normal. No Wheezing. No rales Abdomen: Soft and nontender. No rigidity. No distention. Skin: Skin warm and dry. Normal skin color. Normal skin turgor. On the great toe of the right foot, patient has onychomycosis. Extremities: No lower extremity edema. No Lacerations. No Rash Neuro: Oriented X 3. No motor deficit. No sensory deficit. Moving all extremities. No slurred speech. CN 2 through 12 grossly intact Psych: calm, cooperative, normal affect Vital Signs: Vital Signs - 24 hr 07/23/25 20:51 Temperature 98 F Pulse Rate 88 Respiratory Rate 20 Blood Pressure 120/90 H Pulse Oximetry 95 Oxygen Delivery Method Room Air BMI result Body Mass Index 31.9 Course Course Course Narrative: Abbie Christopher MD 07/23/252049 c/o toe fungus started 1 yr ago states he is going to be arrested next month and wants to address his toe fungus before going to penitentiary R foot, Medical Decision Making Medical Decision Making [facility] Narrative: I discussed with the patient, that he will need blood work before his primary care physician starts oral antifungal and he will need close follow-up for LFTs checked. Also, patient will be given the phone number for Podiatry. Patient will not wait for labs, patient states he will follow-up with his primary care physician. Patient agrees with the above-mentioned plan Please note, the diagnosis of onychomycosis is not available for discharge instructions Lab Data 07/23/25 20:58 07/23/25 20:58 Labs: Lab Results 07/23/25 Range/Units 20:58 WBC 8.4 (4.8-10.8) X10*3/uL RBC 5.37 (4.60-5.80) X10*6/uL Hgb 15.2 (14.0-18.0) g/dl Hct 44.5 (42.0-52.0) % MCV 82.9 (80.0-98.0) fL MCH 28.3 (27.0-33.0) pg MCHC 34.2 (31.0-36.0) g/dl RDW 13.0 (11.0-16.0) % Plt Count 255 (160-400) X10*3/uL MPV 9.3 L (9.4-12.4) fL Immature Gran % (Auto) 0.5 H (0.0-0.4) % Neut % (Auto) 50.4 (45-73) % Lymph % (Auto) 36.2 (20-40) % [place] % (Auto) 8.4 (2-11) % Eos % (Auto) 3.8 (0-4) % Baso % (Auto) 0.7 (0-2) % Lymph # (Auto) 3.0 (1.2-4.9) X10*3/uL [place] # (Auto) 0.7 (0.1-1.2) X10*3/uL Eos # (Auto) 0.3 (0.0-0.4) X10*3/uL Baso # (Auto) 0.1 (0.0-0.2) X10*3/uL Abs Immat Gran (auto) 0.04 H (0.00-0.03) X10*3/uL Absolute Neuts (auto) 4.2 (2.0-8.3) x10*3/uL Absolute Nucleated RBC 0.000 (0.0-0.012) X10*3/uL Nucleated RBC % (auto) 0.0 (0.0-0.2) /100WBC Sodium 144 (135-145) mmol/L Potassium 3.5 (3.3-5.1) mmol/L Chloride 104 (96-108) mmol/L Carbon Dioxide 26 (22-29) mmol/L Anion Gap 18 (12-20) BUN 11 (9-16) mg/dL Creatinine 1.18 (0.5-1.4) mg/dL Estim Creat Clear Calc 86.0 Estimated GFR > 60 Random Glucose 106 (60-115) mg/dL Calcium 9.2 (8.4-10.2) mg/dL Total Bilirubin 0.2 (0.0-1.0) mg/dL Direct Bilirubin < 0.2 (0.0-0.5) mg/dL AST 32 (5-37) U/L ALT 26 (0-40) U/L Alkaline Phosphatase 93 (39-117) U/L Total Protein 7.9 (6.5-8.0) g/dL Albumin 4.9 (3.5-5.0) g/dL Discharge Plan Discharge Clinical Impression: Onychomycosis Patient Disposition: Home, Self-Care Instructions: Skin Yeast Infection (ED) Additional Instructions: Your diagnosis is onychomycosis. Fungal nail. Please follow-up with the primary care physician. We started labs because your primary care physician we will need to see them before starting any oral medication. Also, you will be given the phone number to follow-up with podiatry Prescriptions: No Action trazodone 50 mg tablet 50 mg PO BEDTIME Qty: 30 3RF Trelegy Ellipta 200-62.5-25 mcg blister with device 1 inh inhalation DAILY 30 Days Qty: 1 6RF hydrochlorothiazide 25 mg tablet 25 mg PO DAILY Qty: 30 0RF aspirin 81 mg Tablet,Delayed Release (Dr/Ec) 81 mg PO DAILY Qty: 30 0RF cyclobenzaprine 5 mg tablet 5 mg PO TID PRN (Reason: muscle spasm) Qty: 10 0RF acetaminophen 500 mg tablet 1,000 mg PO QID PRN (Reason: pain) Qty: 30 0RF lidocaine 5 % adhesive patch,medicated 1 patch topical DAILY Qty: 15 0RF Rx Instructions: leave on most painful area for up to 12 hrs amoxicillin 500 mg capsule 500 mg PO BID Qty: 19 0RF meclizine [Dramamine (meclizine)] 25 mg tablet 25 mg PO TID PRN (Reason: dizziness) Qty: 30 0RF lorazepam [Ativan] 1 mg tablet 1 mg PO BEDTIME PRN (Reason: Severe dizziness) Qty: 7 0RF amoxicillin-pot clavulanate 875-125 mg tablet 1 tab PO BID Qty: 20 0RF atorvastatin 10 mg tablet 10 mg PO BEDTIME sertraline 100 mg tablet 200 mg PO QAM carbidopa-levodopa [Sinemet] 25-100 mg tablet 0.5 tab PO TID 90 Days Qty: 135 1RF lamotrigine 100 mg tablet 100 mg PO BID 90 Days Qty: 180 1RF sumatriptan succinate 50 mg tablet See Rx Instructions PO .COMPLEX 30 Days Qty: 10 5RF Rx Instructions: take 1 tab at onset of headache; if no relief may repeat 1 tab after at least 2 hrs; PO Referrals: Johnny Acevedo DPM [[facility], Podiatry] Interventions: ED Discharge Assessment Last Done: 07/23/25 21:08 Discharge Date/Time: 07/23/25 21:08 Print Language: Slovenian
[2025-07-23 20:51] VITALS: BP 120/90; PULSE 88; RESP 20; TEMP 36.6; O2SAT 95; BMI 31.9
--- OUTSIDE RECORDS SUMMARY | 2025-07-23 21:01 | XMS_ITS | Clinical Summary ---
Author Organization [employer] Address [address] [facility] [address] [place] [address] Care Team Providers Care Remedial Masseur Name Role Phone Name, Vinicio BOUCHER Primary Care Provider [phone] Allergies No known active allergies Medications * [...] 3 07/01/2025 12:51 PM EST 07/16/20 24 //2 026 Active losartan-hydroCHLO ROthiazide (Hyzaar) 100-12.5 MG tabletIndications: Hypertension, unspecified type Take 1 tablet by mouth Once per day. 90 tablet 3 07/01/2025 12:51 PM EST 07/16/20 24 Active atorvastatin (Lipitor) 40 MG tabletIndications: Mixed hyperlipidemia TAKE 1 TABLET BY MOUTH AT BEDTIME 90 tablet 1 02/14/20 25 Active azelastine (Optivar) 0.05 % ophthalmic solution Administer 1 drop into both eyes 2 times daily. 6 mL 2 07/18/2025 1:41 PM EST 07/17/20 25 026 Active Active Problems Problem Noted Date Diagnosed Date Chronic static encephalopathy 12/07/2024 History of seizures as a child 12/07/2024 Anxiety 03/20/2024 Asthma 03/20/2024 Back pain 03/20/2024 Insomnia 03/20/2024 History of pneumonia 03/20/2024 Severe episode of recurrent major depressive disorder, without psychotic features ([facility]) 03/13/2024 Obstructive sleep apnea 01/26/2024 Assessment & Plan (01/26/2024 12:27 PM EDT): Followed by [facility] - Dr. Tellez Reports that he received CPAP approx Aug 2023, but has not been able to use. 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[employer]) for assistance Vertigo due to brain injury [...] cocaine use 01/08/2022 History of drug abuse ([facility]) 01/08/2022 Resolved Problems Problem Noted Date Diagnosed Date Resolved Date REED (acute kidney injury) 03/20/2024 Atypical chest pain 03/20/2024 12/08/19 25 Benign paroxysmal positional vertigo 03/20/2024 12/07/2024 Dysarthria 03/20/2024 12/07/2024 Dyspnea on exertion 03/20/2024 12/08/19 25 Facial droop 03/20/2024 12/07/2024 Generalized weakness 03/20/2024 024 Morbid obesity ([facility]) 03/20/2024 Sinusitis nasal 03/20/2024 03/20/2024 Vertigo 03/20/2024 03/20/2024 CECILIA (obstructive sleep apnea) 03/20/2024 03/20/2024 Hypertension 03/20/2024 12/07/2024 Tremulousness 03/20/2024 03/20/2024 Healthcare maintenance 01/26/202403/20 Assessment & Plan (01/26/2024 12:24 PM EDT): - Dental in [place] - Reports colonoscopy in 2023 through [facility], was advised for repeat in 5 years (request records to confirm) Encounters Date Type Department Care Team Description 07/17/2025 4:00 PM EST Office Visit [facility] [address] [place] [address] Name, MD Vinicio Lack of energy (Primary Dx); Allergic conjunctivitis of both eyes; Decreased hearing, unspecified laterality; Encounter for immunization 07/17/2025 Travel 07/16/2025 Telephone [facility] [address] [place] [address] Vinicio Mehta MD Chart Prep 07/10/2025 Telephone [facility] [address] [place], [place] [phone] Vinicio Mehta MD 06/07/2025 Telephone [facility] [address] [place] [address] NameVinicio MD Chart Prep from Last 3 Months Immunizations Immunization Administration Dates Next Due Hep B, adult 08/14/2024,03/13/2024,02/08/2024 Influenza Injectable Quadriv alant Preservative Free IIV4 MDCK 04/21/2023 Influenza, seasonal, injecta ble, preservative free 07/17/2025,05/10/2024 Pfizer Covid-19 Vaccine 12+ 07/17/2025, Pfizer Covid-19 Vaccine 12+ Bivalent 09/29/2022 Pneumococcal [...] Packs/Day Years Used Date Smoking Tobacco: Never Passive Smoke Exposure: Never Smokeless Tobacco: Never Tobacco Cessation:Counseling Given: Not Answered Alcohol Use Standard Drinks/Week Comments Never 0 (1 standard drink = 0.6 oz pur e alcohol) Depression Answer Date Recorded Patient Health Questionnaire-9 Score 14 07/17/2025 Patient Health Questionnaire-9 Score 14 07/17/2025 Last PHQ-9: Questionnaire Data Not on file 1 09/17/2024 Housing Stability Answer Date Recorded What is [...] Answer Date Recorded Patient Health Questionnaire-2 Score 6 07/17/2025 Internet Access Answer Date Recorded Internet Access [...] Sign Reading Time Taken Comments Blood Pressure 110/74 07/17/2025 4:07 PM EST Pulse 80 07/17/2025 4:07 PM EST Temperature 36.9 C (98.5 F) 07/17/2025 4:07 PM EST Respiratory Rate 20 07/17/2025 4:07 PM EST Oxygen Saturation 96% 03/20/2025 11:29 AM EDT Inhaled Oxygen Concentration - - Weight 107 kg (235 lb 2 oz) 07/17/2025 4:[address] Height 182.9 cm (6') 07/17/2025 4:07 PM EST Body Mass Index 31.89 07/17/2025 4:07 PM EST Plan of Treatment Upcoming Encounters Date Type Department Care Team (Late st Contact Info) Description 10/07/2025 4:00 PM EST Office Visit [facility] [address] [place] [address] Name, MD Vinicio [address] [place] [address] Health Maintenance Due Date Last Done Comments CT Colonography 1967 FIT DNA/Cologuard 1967 FIT 1967 FOBT 1967 Sigmoidoscopy 1967 RSV Patients and Patients Aged 60 years or older (1 - Risk 50-74 years 1-dose series) 2017 Disability Screening 12/07/2025 12/07/2024 Depression Monitoring 01/15/2026 07/17/2025, 025 Alcohol/Substance Use Screening 03/20/2026 03/20/2025 SDOH Screening 03/20/2026 03/20/2025 Tobacco Screening 07/17/2026 07/17/2025 Colonoscopy 09/26/2028 09/26/2023, 09/26/2023 Colorectal Cancer Screening 09/26/2028 Lipid Panel 04/23/2029 04/23/2024, 01/27/2024 DTaP/Tdap/Td Vaccines (2 - Td or Tdap) 04/21/2033 04/21/2023, 07/24/2012 HIV Screening Completed 01/27/2024 Hepatitis C Screening Completed 01/27/2024 Zoster Vaccines Completed 06/08/2024, 04/12/2024 Pneumococcal Vaccine: 50+ Years Completed 08/07/2024 Hepatitis B Vaccines Completed 08/14/2024, 03/13/2024, 02/08/2024 COVID-19 Vaccine Completed 07/17/2025, 10/2023, 09/29/2022, Additional history exists Influenza Vaccine Completed 07/17/2025, , 04/21/2023 HIB Vaccines Aged Out No longer eligi [...] 10:55 AM EDT) Triglycerides 123 <150 mg/dL [facility] Comment:Desirable Triglyceri de: less than 150 mg/dLBorderline High Triglyceride 150-199 mg/dLHigh Triglyceride: 200-499 mg/dLVery High Triglyceride: greater than or equal to 5OO mg/dL Cholesterol 132 <200 mg/dL [facility] Comment:Desirable Cholestero l: less than 200 mg/dLBorderline High Cholesterol: 200-239 mg/dLHigh Cholesterol: greater than 239 mg/dL LDL Cholesterol Calculated 78 <100 mg/dL [facility] Comment:Desirable LDL: less than 100 mg/dLNear Optimal/Above Optimal LDL: 110- 129 mg/dLBorderline High LDL: 130-159 mg/dLHigh LDL: 160-189 mg/dLVery High LDL: greater than or equal to 190 mg/dL HDL Cholesterol 30(L) >40 mg/dL [facility] Comment:Desirable HDL: great er than 40 mg/dL Note: This HDL assay may give artificially low results in patients with liver disease. 04/23/2024 10:5 5 AM EDT 04/23/2024 1:45 PM EDT us Vinicio Mehta MD LAB BLOOD ORDERABLES Final Resul t [facility] [address] [place], [place] [phone] * Hepatitis C Viral RNA, Quantitative, Real-Time PCR (01/27/2024 11:37 AM EDT) Hepatitis C Viral Load <15 NOT DETECTED NOT DETECTED IU/mL [facility] HCV Log PCR <1.18 NOT DETECTED NOT DETECTED Log IU/mL [facility] Comment:For additional infor carley, please refer tohttp://education.[employer]/faq/XPT82i4(This link is being provided for informational/educational purposes only.)THIS TEST WAS PERFORMED AT:[employer] [place] [id number] WESTON MD Blood 01/27/2024 11:3 7 AM EDT 01/27/2024 12:58 PM EDT us Nguyen Palacios [facility] LAB BLOOD ORDERABLES Final Res ult [facility] [address] [place] [address] [phone] * HIV-1/2 Antigen and Antibodies, Fourth Generation, with Reflexes (01/27/2024 11:37 AM EDT) Pathologist [facility] HIV AB/AG Nonreactive Nonreactive [facility] Comment:HIV-1 p24 Ag and/or HIV-1/HIV-2 Ab not detected.A test result that is nonreactive does not exclude thepossibility of exposure to or infection with HIV-1 and/orHIV-2. Nonreactive results in this assay for individualswith prior exposure to HIV-1 and/or HIV-2 may be due toantigen and antibody levels that are below the limit ofdetection of this assay.The [employer] HIV Ag/Ab Combo assay result andsupplemental assay results should be interpreted inconjunction with the patient's clinical presentation,history and other laboratory results. If the results areinconsistent with clinical evidence, additional testing issuggested to confirm the result. Blood Venous blood specimen / Unknown 01/27/2024 11:37 AM EDT 01/27/2024 12:58 PM EDT Nguyen Palacios [facility] LAB BLOOD ORDERABLES Final Res ult [facility] [address] [place] [address] [phone] * Colonoscopy (09/26/2023 1:52 PM EST) Anatomical Region Laterality Modality Endoscopy Historical Provider MD ENDOSCOPY PROCEDURE ORDER RDAHA Final Result from Last 3 Months or Most Recently Relevant to Health Maintenance Insurance [facility] C3 Care Teams Remedial Masseur Relationship Specialty Start Date End Date Name, MD Vinicio [address] [place] [phone] PCP - General Internal Medicine 03/13/24
--- OUTSIDE RECORDS SUMMARY | 2025-07-23 21:01 | XMS_ITS | Encounter Summary ---
Author Organization [employer] Address [address] [facility] [address] [place] [address] Care Team Providers Care Plant Control Aide Name Role Phone Name, Vinicio BOUCHER Primary Care Provider [phone] Radha Shea PharmD Unavailable [phone] Encounter Details Date Type Department Care Team ([facility] st Contact Info) Description 08/14/2024 Orders Only [facility] [address] [place], [place] [phone] ProviderKritsi MD Social History Tobacco Use Types Packs/Day [...] Description 10/07/2025 4:00 PM EST Office Visit [facility] [address] [place] [phone] Name, MD Vinicio [address] [place] [phone] documented as of this encounter Procedures Procedure [...] documented as of this encounter Care Teams Plant Control Aide Relationship Specialty Start Date End Date Name, MD Vinicio [address] [place] [phone] PCP - General Internal Medicine 03/13/24 Radha Shea PharmD [address] [place] [phone] Pharmacist Internal Medicine 04/12/24 12/17/24 documented as of this encounter
--- OUTSIDE RECORDS SUMMARY | 2025-07-23 21:01 | XMS_ITS | Encounter Summary ---
Author Organization [employer] Address [address] [facility] [address] [place] [address] Care Team Providers Care Math Interventionist Name Role Phone Name, Vinicio BOUCHER Primary Care Provider [phone] Radha Shea PharmD Unavailable [phone] Reason for Visit * Reason Onset Date Comments Appointment Request 06/05/2024 Encounter Details Date Type Department Care Team ([facility] st Contact Info) Description 06/05/2024 Telephone [facility] [address] [place], [place] [phone] Name, MD Vinicio [address] [place] [address] Appointment Request Social History Tobacco Use Types [...] text. Pt returned call to r/s but service writer unable to book appointment due to televisit on same slot. [employer] Manager advise will send a message. Contact pt at [phone] (czech) documented in this encounter Plan of Treatment Upcoming Encounters Date Type Department Care Team (Late st Contact Info) Description 10/07/2025 4:00 PM EST Office Visit [facility] [address] [place] [phone] Name, MD Vinicio [address] [place] [address] documented as of this encounter Visit Diagnoses Not on filedocumented in this encounter Additional Health Concerns Assessment Noted Time PHQ-9 Depression Total Score: 14 024 9:56 AM EDT documented as of this encounter Care Teams Math Interventionist Relationship Specialty Start Date End Date NameVinicio MD [address] [place] [phone] PCP - General Internal Medicine 03/13/24 Radha Shea, AshleighD [address] [place] [phone] Pharmacist Internal Medicine 04/12/24 12/17/24 documented as of this encounter
[2025-07-23 21:04] LABS: MANUAL DIFF FLAG NO
[2025-07-23 21:06] LABS: Hematocrit 44.5 % (42.0-52.0); Hemoglobin 15.2 g/dl (14.0-18.0); Imm Gran Abs Auto 0.04 X10*3/uL (0.00-0.03); Imm Gran Pct Auto 0.5 % (0.0-0.4); Lymphocytes Absolute Auto 3.0 X10*3/uL (1.2-4.9); Mean Corpuscular HGB Conc 34.2 g/dl (31.0-36.0); Mean Corpuscular Hemoglobin 28.3 pg (27.0-33.0); Mean Corpuscular Volume 82.9 fL (80.0-98.0); NRBC Abs Auto 0.000 X10*3/uL (0.0-0.012); NRBC Pct Auto 0.0 /100WBC (0.0-0.2); Platelet Count 255 X10*3/uL (160-400); Red Blood Count 5.37 X10*6/uL (4.60-5.80); White Blood Count 8.4 X10*3/uL (4.8-10.8)
[2025-07-23 21:08] VITALS: BP 120/90; PULSE 88; RESP 20; TEMP 36.6; O2SAT 95
[2025-07-23 21:20] LABS: Alanine Aminotransferase 26 U/L (0-40); Albumin Level 4.9 g/dL (3.5-5.0); Alkaline Phosphatase 93 U/L (39-117); Anion Gap 18 (12-20); Aspartate Amino Transferase 32 U/L (5-37); Blood Urea Nitrogen 11 mg/dL (9-16); Calcium 9.2 mg/dL (8.4-10.2); Carbon Dioxide 26 mmol/L (22-29); Chloride 104 mmol/L (96-108); Creatinine Clr Calc Pharmacy 86.0; Estimated Glomerular Filt Rate > 60; Potassium 3.5 mmol/L (3.3-5.1); Sodium 144 mmol/L (135-145); Total Protein 7.9 g/dL (6.5-8.0)
== END 2025-07-23 21:08 | disposition home or self-care (01) ==
PROVIDERS: Emergency Provider Emergency Medicine; PCP Internal Medicine Geriatric Medicine
DX: B35.1 Tinea unguium (principal); M79.674 Pain in right toe(s); I10 Essential (primary) hypertension
CPT/HCPCS: 36415; 80048; 80076; 85025; 99282; 99283